=== PATIENT | female | born 1995 | race Caucasian/White ===

== ENCOUNTER → 2018-04-05 17:05 | Outpatient (CLI) | payer MEDICAID, SELFPAY ==
[2018-04-05 18:07] LABS: Glucose Challenge Gest 1H 50g 95 mg/dL (70-140)
== END ==
PROVIDERS: Visit Provider Obstetrics & Gynecology
DX: Z34.83 Encounter for supervision of other normal pregnancy, third trimester (principal)
CPT/HCPCS: 82950

== ENCOUNTER 2020-01-07 19:38 | Emergency (ER) | payer MEDICAID, SELFPAY ==
[2020-01-07 19:39] VITALS: BP 150/96; PULSE 101; RESP 16; TEMP 36.7; O2SAT 99; BMI 43.3
--- NOTE | 2020-01-07 19:57 | ED.DCSUM_ITS ---
- ER Visit Summary Date of Service: 01/07/20 Chief Complaint: Left upper and lower dental pain History of Present Illness: The patient is a 24 F history of anxiety and depression. Patient states she had an earache for the last 3 days. Has had dental pain for since yesterday. No trauma. No fever. No facial swelling. Physical Examination: Young female no acute distress vital signs stable afebrile. H EENT exam TMs normal bilaterally. No facial swelling. Able to open close her mouth any difficulty. No swelling of the lips or gums. Posterior pharynx normal. Dentition has multiple capped teeth. There is no obvious large cavities. Her left lower second molar is tender to palpation. There is no gingival swelling or abscess. There is no trismus. Floor of her mouth is soft and not swollen. Neck nontender. No lymphadenopathy. Lungs clear to auscultation bilaterally. Heart regular rhythm no murmur. Abdomen soft nontender. Otherwise exam unremarkable. Test Results: None Emergency Department Course and Treatment: Atraumatic dental pain. Patient given 2 [place] here for pain. She will use ibuprofen and Tylenol at home for pain. Treatment Plan: Janes Sánchez Follow-up with her dentist. Tylenol and Motrin for pain. Disposition: Discharge Impression: Left lower jaw dental pain This note was generated with [employer] dictation software. It may contain incorrect words, spelling, and punctuation that were not noted in review of the chart prior to signing ED Disposition - Plan for ED Patient: Referrals: Vj Robles MD [Primary Care Provider] -
--- NOTE | 2020-01-07 19:59 | DCINST.ED_ITS ---
ED Disposition - Plan for ED Patient: Disposition: Home or Assisted Living Instructions: ED Tooth Pain Prescriptions: Penicillin Vk [Pen-Vee K , V-Cillin K] 500 mg PO 4X/DAY #30 tab Prescription Printed Referrals: Kaela Felder [NON-STAFF] - As soon as possible Additional Instructions: Follow-up with any local dentist that you can get into or the [facility]. Pen-Vee K for possible dental infection. 4 times a day. Tylenol and Motrin for pain.
[2020-01-07] MEDS: HYDROcodone Bitartrate/Apap 5/325 Tablet PO (20:05)
[2020-01-07 20:15] VITALS: RESP 16
== END 2020-01-07 20:16 | disposition home or self-care (01) ==
LOC: ED 20:11
PROVIDERS: Emergency Provider Emergency Medicine; PCP Family Medicine
DX: K08.89 Other specified disorders of teeth and supporting structures (principal); F32.9 Major depressive disorder, single episode, unspecified; F41.9 Anxiety disorder, unspecified; Z72.0 Tobacco use
CPT/HCPCS: 99283

== ENCOUNTER 2020-06-07 12:13 | Emergency (ER) | payer MEDICAID, SELFPAY ==
[2020-06-07 12:14] VITALS: BP 120/79; PULSE 92; RESP 16; TEMP 36.7; O2SAT 98; BMI 43.7
--- NOTE | 2020-06-07 12:34 | ED.VIS.GEN ---
History of Present Illness Chief Complaint: Cough Informant: Patient Onset: Days Context: Gradual Onset Current Severity: Mild Maximum Severity: Moderate Narrative: Patient presents secondary to cough and congestion. She is a history of asthma and states her lungs feel tight and she feels short of breath. No known fever at home. She does complain of body aches with altered taste. She states multiple other family members are sick with the same. Her sister had been diagnosed with pneumonia but was negative for Covid. Patient states she is not been to her doctor in quite some time and does not have her inhalers. - Past Medical History (1) Asthma Status: Chronic (2) Bipolar 1 disorder Status: Chronic Past Medical History - Allergies and Home Meds Allergies/Adverse Reactions: Allergies No Known Allergies Allergy (Verified 06/07/20 12:14) Primary Care Physician: Vj Robles MD [Primary Care Provider] - Prior records reviewed: Yes Lives: With Family Smoking Status: Current every day smoker Review of Systems General: Denies: Fever Eyes: Denies: Visual changes - bilaterally ENT: Reports: - - Congestion Cardiovascular: Reports: Chest pain - Lungs feel tight Respiratory: Reports: Dyspnea, Cough Gastrointestinal: Denies: Abdominal pain, Vomiting Musculoskeletal: Reports: Myalgias Neurological: Denies: Weakness, Parasthesia Hematologic: Denies: Easy bruising, Easy bleeding Allergy: Denies: Uticaria Physical Exam Vital Signs/Narrative: Vital Signs Temp Pulse Resp BP Pulse Ox 06/07/20 12:14 98.1 F 92 16 120/79 98 Inital Vital Signs reviewed: Yes General: Well nourished, Well developed Head: Normocephalic ENT: Moist mucous membranes Cardiovascular: Regular rate, Regular rhythm Respiratory: No distress, Wheezing - Inspiratory and expiratory wheezes throughout Abdomen: Soft, Nontender Extremities: Nontender Skin: Normal color Neurological: Alert, Oriented x3 Psychological: Normal affect Diagnostic/Tx/Re-eval Impressions Chest X-Ray 06/07/20 13:05 IMPRESSION: Normal x-ray examination of the chest. Electronically Signed: Heron Currie, at 13:28 EDT , Service support , 06/07/20 13:05 Chest 1 View (Portable) [RAD] Stat - Medical Decision Making Patient was given p.o. prednisone here along with a DuoNeb treatment and albuterol MDI. On repeat evaluation she has significantly improved air movement with no wheezing noted. She subjectively feels improved. I believe she does have a viral URI that exacerbated her asthma. I do not think antibiotics are warranted. She did have a Covid test that will be a send out. Results of this should be available in 4 to 5 days. ED Disposition - Plan for ED Patient: Disposition: Home or Assisted Living Diagnosis: Viral URI, Asthma exacerbation Instructions: ED VIRAL URI w/ Wheezing Adult Prescriptions: Prednisone [Deltasone] 40 mg PO DAILY #10 tab Transmission Status: [facility] to [facility] [place] Referrals: Vj Robles MD [Primary Care Provider] - 3-5 Days if not improving
[2020-06-07 12:36] VITALS: O2SAT 98
[2020-06-07] MEDS: predniSONE 20 MG Tablet 60 MG PO (13:01)
--- NOTE | 2020-06-07 13:05 | RAD_ITS ---
STUDY: X-RAY CHEST REASON FOR EXAM: Female, 24 years old. COUGH, SINUS CONGESTION, AND SOB WITH EXERTION TECHNIQUE: Single AP portable view of the chest. COMPARISON: Comparison is made with prior study dated 12/28/2013. FINDINGS: The lungs are clear and expanded. There is no demonstrated pleural abnormality. Normal size heart. Normal mediastinum and simone. Normal visualized pulmonary arteries. Normal visualized aortic arch and descending thoracic aorta. Normal visualized thoracic spine. Normal visualized ribs, clavicles, and shoulders. There is no demonstrated abnormality of the visualized soft tissue structures of the upper abdomen. RAD/Chest 1 View (Portable) IMPRESSION: Normal x-ray examination of the chest. Electronically Signed: Heron Currie, at 13:28 EDT , Service support ,
[2020-06-07] MEDS: Ipratropium/Albuterol Sulfate 3 ML AMPUL.NEB INHALATION (13:16)
[2020-06-07 13:20] VITALS: PULSE 79; RESP 20; O2SAT 97
[2020-06-07 14:07] VITALS: BP 124/77; PULSE 62; RESP 15; O2SAT 99
== END 2020-06-07 14:10 | disposition home or self-care (01) ==
PROVIDERS: Emergency Provider Emergency Medicine; PCP Family Medicine
DX: J06.9 Acute upper respiratory infection, unspecified (principal); J45.901 Unspecified asthma with (acute) exacerbation; F31.9 Bipolar disorder, unspecified; F17.200 Nicotine dependence, unspecified, uncomplicated
CPT/HCPCS: 71045; 87635; 94640; 99283; U0003

== ENCOUNTER 2021-03-07 18:47 | Emergency (ER) | payer MEDICAID, SELFPAY ==
[2021-03-07 18:47] VITALS: BP 141/67; PULSE 86; RESP 15; TEMP 36.6; O2SAT 96; BMI 43.7
[2021-03-07 19:21] LABS: Bacteria 0 SEEN /hpf (None Seen); Mucous, Urine 0 SEEN /hpf (<or=2+)
[2021-03-07 19:28] LABS: Color, Urine Yellow (Yellow); Glucose, Dipstick Normal (Normal); Ketone-Dipstick Negative (Negative); Leukocyte Esterase-Dipstick 25 /ul (Negative); Nitrite-Dipstick Negative (Negative); Occult Blood-Urine 10 /ul (Negative); Protein-Dipstick 15 mg/dl (Negative); Specific Gravity, Urine 1.025 (1.002-1.030); Urine Bilirubin Dipstick Negative (Negative); Urine Clarity Sl. Cloudy (Clear); Urine Urobilinogen Normal (Normal)
[2021-03-07 19:35] LABS: Amorphous Sediment 1+ URATE; Red Blood Cells-Urine 0-5 SEEN /hpf (0-5); Squamous Epithelial Cells - UA 0-5 SEEN /hpf (5-10); White Blood Cells 0-5 SEEN /hpf (0-5)
--- NOTE | 2021-03-07 19:37 | EX.ED.DYSGE1 ---
HPI History of Present Illness Chief Complaint: Complaint Narrative Narrative: 25-year-old female presenting with left lower quadrant left flank pain. She states this started about 4 days ago. She noted that she had hematuria yesterday when she was seen by her gynecology. She has not seen chloe hematuria. She does describe dysuria. Patient has no history of kidney stones. 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 There was an ultrasound ordered but they did not want her to go get it for a few more days. Patient is not had any fever. She has no nausea. She complains of sharp pain radiating to the left inguinal area. Denies vaginal complaints. PFSH PFS Medical History Anxiety Asthma Home Medications bupropion HCl 150 mg PO DAILY 01/07/20 [History Last Taken Unknown] buspirone 10 mg PO TID 01/07/20 [History Last Taken Unknown] albuterol sulfate 1 - 2 puff INHALATION Q4H PRN PRN 06/07/20 [History Last Taken Unknown] Allergy/AdvReac Type Severity Reaction Status Date / Time No Known Allergies Allergy Verified 03/07/21 18:49 Family History Aunt Diabetes Grandmother CVA (cerebral vascular accident) Cancer Hypertension Thyroid disorder Grandfather Diabetes CVA (cerebral vascular accident) Mother Hypertension Depression Bipolar 1 disorder Sister Hypertension Asthma Depression Bipolar 1 disorder Thyroid disorder Surgical History History of tonsillectomy and adenoidectomy Status post colposcopy (~02/16/18) Social History Smoking Status: Current every day smoker tobacco type: cigarettes alcohol intake: never substance use type: does not use caffeine: No what type of physical activity do you participate in: none seatbelt use: sometimes do you feel safe at home: Yes additional social history: Single-Patient is unemployed ROS ROS ED Constitutional Constitutional ED: Denies fever(s) or subjective Eyes Eyes: Denies blurry vision or change in vision ENT ENT ED: Denies ear pain, rhinorrhea or sore throat Cardiovascular Cardiovascular: Denies chest pain, palpitations or racing heartbeat Respiratory/Chest Respiratory/Chest: Denies cough, dyspnea or sputum Gastrointestinal Gastrointestinal: Reports abdominal pain; Denies constipation or diarrhea Genitourinary Genitourinary ED: Reports dysuria and hematuria Musculoskeletal Musculoskeletal: Denies arthralgias or myalgias Integumentary Denies abscess or rash Neurologic Neurologic: Denies headache(s), paresthesias or weakness EXAM Physical Exam Const Vital Signs: 03/07/21 18:47 03/07/21 21:43 Temperature 97.8 F Temperature Source Temporal Pulse Rate 86 80 Respiratory Rate 15 16 Blood Pressure 141/67 H 130/78 H Blood Pressure Mean 91 Pulse Ox 96 97 Oxygen Delivery Method Room Air Positive well nourished General Appearance ED: NAD HEENT Reports moist mucous membranes Negative for trauma Eyes PERRL and EOMs intact bilaterally Chest Wall inspection of chest normal and palpation of chest normal Resp normal respiratory effort and clear to auscultation bilaterally Cardio regular rate and regular rhythm GI GI Narrative: Tenderness to palpation mild in the left lower quadrant. Abdomen is nonperitoneal. Back/Spine Negative for no CVA tenderness Neuro oriented x3 and CN's II-XII intact bilaterally Sensorium / Orientation: alert Psych mental status grossly normal Skin no rashes or lesions noted and no wounds MDM MDM MDM Narrative Medical decision making narrative: Patient presented with lower abdominal pain. Her vital signs are stable and she is afebrile. I obtained a urinalysis and a renal function which are normal. Urine test is normal. CT of the abdomen pelvis performed without contrast shows no acute intra-abdominal process. Patient counseled on findings. She was more comfortable after receiving morphine and Zofran. 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 She is discharged home in stable condition. Impression: #1 abdominal pain Lab Data Attestation: I reviewed the patient's lab results. Labs: Laboratory Results - last 24 hr 03/07/21 03/07/21 03/07/21 19:17 19:17 19:48 Sodium 138 Potassium 3.9 Chloride 105 Carbon Dioxide 29.0 Anion Gap 4 L BUN 9 Creatinine 0.86 Estim Creat Clear Calc 83.44 Est GFR (MDRD) Af Amer 105 Est GFR (MDRD) Non-Af 86 BUN/Creatinine Ratio 10.5 Glucose 116 H Calcium 9.3 Urine Color Yellow Urine Clarity Sl. Cloudy Urine pH 6.0 Ur Specific [place] 1.025 Urine Protein 15 H Urine Glucose (UA) Normal Urine Ketones Negative Urine Occult Blood 10 H Urine Nitrite Negative Urine Bilirubin Negative Urine Urobilinogen Normal Ur Leukocyte Esterase 25 H Urine RBC 0-5 SEEN Urine WBC 0-5 SEEN Ur Squamous Epith Cells 0-5 SEEN Amorphous Sediment 1+ URATE Urine Bacteria 0 SEEN Urine Mucus 0 SEEN Urine Test Negative Radiography Diagnostic Testing: Radiology Impression Abdomen/Pelvis CT 03/07/21 20:19 IMPRESSION: No acute intra-abdominal process identified. Electronically Signed: Octavio Caldwell MD at 20:42 EDT Tel , Service support , Discharge Plan Triage Chief Complaint: Complaint ED Provider: Tom Gallego Dx/Rx/DC Orders Instructions: ED Abdominal Pain Unkn Cause Fem Prescriptions: No Action buspirone 5 MG tablet 10 mg PO TID RF: 0 bupropion HCl 150 MG tablet extended release 24 hr 150 mg PO DAILY RF: 0 albuterol sulfate 1 PUFF inhaler 1 - 2 puff inhalation Q4H PRN PRN (Reason: Sob &/Or Wheezing) RF: 0 Primary Care Provider: Vj Robles Referrals: Vj Robles MD [Primary Care Provider] - Disposition Disposition: Home, Self Care Discharge Date/Time: 03/07/21 21:35
[2021-03-07] MEDS: Morphine 4 MG/ML Syringe IV (19:46)
[2021-03-07] MEDS: Ondansetron 4 MG/2 ML Vial IV (19:46)
[2021-03-07 20:00] LABS: Internal QC Validated? YES +Cl - CLEAR BKGD; Pregnancy, Urine Negative Negative
[2021-03-07 20:11] LABS: Anion Gap 4 (5-15); BUN 9 mg/dL (7-18); BUN/Creat Ratio 10.5 RATIO (10-20); Calcium,Total 9.3 mg/dL (8.5-10.1); Chloride 105 mmol/L (98-107); Creatinine, Serum 0.86 mg/dL (0.55-1.02); EST Glomerular Filtration Rate 86 mL/min (>60); Est Glom Filt Rate - Afr Amer 105 mL/min (>60); Estimated Creatinine Clearance 83.44 ml/min; Glucose 116 mg/dL (74-106); Potassium 3.9 mmol/L (3.5-5.1); Sodium Level 138 mmol/L (136-145)
--- NOTE | 2021-03-07 20:19 | CT_ITS ---
STUDY: CT ABDOMEN AND PELVIS WITHOUT CONTRAST REASON FOR EXAM: Female, 25 years old. Abdominal pain RADIATION DOSAGE (If Supplied By Facility): CTDIvol = ( 23.28 ) mGy, DLP = ( 1244.44 ) mGycm TECHNIQUE: Transaxial images were obtained from the dome of the diaphragm to the symphysis pubis without oral contrast, and without intravenous contrast. Sagittal and coronal images were reconstructed. Individualized dose optimization techniques were used for this CT. COMPARISON: None. FINDINGS: The visualized lung bases are unremarkable. The visualized portions of the heart are within normal limits. Normal liver. Normal gallbladder and extrahepatic biliary system. Normal spleen. Normal pancreas. Normal bilateral adrenal glands. Normal right kidney. Normal left kidney. Normal visualized stomach. Normal small intestine. Normal colon. The appendix is visualized and appears normal. Normal abdominal aorta. Normal inferior vena cava. Normal retroperitoneum. Normal urinary bladder. Normal visualized uterus. There is a small umbilical hernia containing fat. Sclerosis at the bilateral sacroiliac joints is nonspecific. CT/Abdomen/Pelvis without Cont IMPRESSION: No acute intra-abdominal process identified. Electronically Signed: Octavio Caldwell MD at 20:42 EDT Tel , Service support ,
[2021-03-07 21:43] VITALS: BP 130/78; PULSE 80; RESP 16; O2SAT 97
== END 2021-03-07 21:35 | disposition home or self-care (01) ==
PROVIDERS: Emergency Provider Student in an Organized Health Care Education/Training Program; PCP Family Medicine
DX: R10.32 Left lower quadrant pain (principal); R30.0 Dysuria; R31.9 Hematuria, unspecified; F17.210 Nicotine dependence, cigarettes, uncomplicated; J45.909 Unspecified asthma, uncomplicated; F41.9 Anxiety disorder, unspecified; Z79.899 Other long term (current) drug therapy
CPT/HCPCS: 74176; 80048; 81001; 81025; 96374; 96375; 99283; A4216; J2405

== ENCOUNTER 2021-05-27 13:03 | Emergency (ER) | payer MEDICAID, SELFPAY ==
[2021-05-27 13:05] VITALS: BP 118/88; PULSE 102; RESP 18; TEMP 36.7; O2SAT 97; BMI 43.7
[2021-05-27 14:44] LABS: Absolute Lymphocyte Count 2.95 X10^3/uL (0.83-4.51); Basophil# 0.04 X10^3/uL; Basophil% 0.5 % (0-1); Eosinophil# 0.16 X10^3/uL; Eosinophils% 1.8 % (0-5); Hematocrit 45.6 % (37-47); Hemoglobin 15.5 g/dL (12.0-15.0); Lymphocyte # 2.95 X10^3/ul (0.83-4.51); Lymphocyte % 33.8 % (19-41); Monocyte# 0.54 X10^3/uL; Monocyte% 6.2 % (0-10); NRBC Flagged by Analyzer 0 % (0-5); Neutrophil # 5.02 X10^3/uL (2.7-7.7); Neutrophil % 57.4 % (47-70); Platelet Count 340 K/mm3 (150-450); RBC Distribution Width CV 12.5 % (11.6-14.6); RBC Distribution Width SD 43.1 fl (35.1-43.9); Red Blood Count 4.85 M/mm3 (4.2-5.4); White Blood Count 8.7 K/mm3 (4.4-11.0)
[2021-05-27 14:54] LABS: Anion Gap 4 (5-15); BUN 10 mg/dL (7-18); BUN/Creat Ratio 13.9 RATIO (10-20); Calcium,Total 9.8 mg/dL (8.5-10.1); Chloride 106 mmol/L (98-107); Creatinine, Serum 0.72 mg/dL (0.55-1.02); EST Glomerular Filtration Rate 105 mL/min (>60); Est Glom Filt Rate - Afr Amer 128 mL/min (>60); Estimated Creatinine Clearance 99.67 ml/min; Glucose 101 mg/dL (74-106); Potassium 3.8 mmol/L (3.5-5.1); Sodium Level 140 mmol/L (136-145)
--- NOTE | 2021-05-27 15:39 | US_ITS ---
STUDY: ULTRASOUND TRANSVAGINAL CLINICAL: Female, 25 years old. bleeding, pelvic pain TECHNIQUE: Transvaginal COMPARISON: 10/21/2013 FINDINGS: Normal uterine size measuring 8.0 x 4.5 x 3.9 cm in maximal craniocaudal dimension. There are no myometrial masses. Normal endometrial thickness measuring 4 mm. There is a 4 mm isoechoic area within the endometrium in the body the uterus which may represent a mass. Correlation with hysteroscopy may be useful.. Normal uterine cervix. Normal right ovary, measuring 2.8 x 2.5 x 2.5 cm. There are multiple follicles without a dominant cyst. Normal left ovary, measuring 2.2 x 1.2 x 1.9 cm. There are multiple follicles without a dominant cyst. There is no free fluid in the pelvis. Polycystic ovary disease: No. US/Transvaginal Non- IMPRESSION: Suspect 4 mm endometrial mass in the body of the uterus and correlation with hysteroscopy would be useful. Electronically Signed: Fidencio James MD at 17:35 EDT Tel , Service support ,
--- NOTE | 2021-05-27 15:42 | EDS_ITS ---
HPI HPI - Female History of Present Illness Chief Complaint: Vag Bleeding Informant: patient Narrative Narrative: 25-year-old female presenting with vaginal bleeding. Patient states she had her Mirena removed 4 days ago and has had bleeding since that time. She was concerned today because she developed blood clots. She has had no syncope. She complains of mild abdominal cramping. Denies other complaints. Recent Illness/Hospitalization: No PFSH PFSH Medical History Anxiety Asthma Home Medications bupropion HCl [Wellbutrin XL] 150 mg PO DAILY 01/07/20 [History Last Taken Unknown] Allergy/AdvReac Type Severity Reaction Status Date / Time No Known Allergies Allergy Verified 05/27/21 13:08 Family History Aunt Diabetes Grandmother CVA (cerebral vascular accident) Cancer Hypertension Thyroid disorder Grandfather Diabetes CVA (cerebral vascular accident) Mother Hypertension Depression Bipolar 1 disorder Sister Hypertension Asthma Depression Bipolar 1 disorder Thyroid disorder Surgical History History of tonsillectomy and adenoidectomy Status post colposcopy (~02/16/18) Social History Smoking Status: Current every day smoker tobacco type: cigarettes alcohol intake: never substance use type: does not use caffeine: No what type of physical activity do you participate in: none seatbelt use: sometimes do you feel safe at home: Yes additional social history: Single-Patient is unemployed [facility] ED Constitutional Constitutional ED: Denies fever(s) Eyes Eyes: Denies change in vision ENT ENT ED: Denies rhinorrhea or sore throat Cardiovascular Cardiovascular: Denies chest pain or palpitations Respiratory/Chest Respiratory/Chest: Denies cough or dyspnea Gastrointestinal Gastrointestinal: Reports abdominal pain; Denies diarrhea, nausea or vomiting Genitourinary Genitourinary ED: Denies dysuria Musculoskeletal Musculoskeletal: Denies myalgias Integumentary Denies rash Neurologic Neurologic: Denies headache(s) Psychiatric Psychiatric: Denies suicidal thoughts EXAM Physical Exam Const Vital Signs: 05/27/21 13:05 05/27/21 17:43 Temperature 98.0 F Temperature Source Temporal Pulse Rate 102 H 69 Pulse Rate [Lying] 69 Pulse Rate [Sitting] 76 Pulse Rate [Standing] 83 Respiratory Rate 18 14 Blood Pressure 118/88 H 121/62 H Blood Pressure [Lying] 121/62 H Blood Pressure [Sitting] 118/65 Blood Pressure [Standing] 135/80 H Blood Pressure Mean 98 81 Blood Pressure Mean [Lying] 81 Blood Pressure Mean [Sitting] 82 Blood Pressure Mean [Standing] 98 Pulse Ox 97 99 Oxygen Delivery Method Room Air Room Air Positive well nourished and well developed General Appearance ED: well developed HEENT Reports normocephalic and head/scalp atraumatic Eyes PERRL and EOMs intact bilaterally Neck supple General: Negative for tenderness Chest Wall inspection of chest normal Resp normal respiratory effort and clear to auscultation bilaterally Cardio regular rate and regular rhythm GI soft to palpation, non-tender and non-distended Palpation: soft; Negative for tender, guarding or rebound tenderness present no CVA tenderness Speculum Exam - Vagina: vaginal bleeding small/minimal Speculum Exam - Cervix: cervical os closed Bimanual Exam - Vag & Uterus: normal bimanual exam Extremity normal to inspection Neuro oriented x3 Sensorium / Orientation: alert Psych mental status grossly normal MDM MDM MDM Narrative Medical decision making narrative: Patient was given IV fluids. CBC is normal with hemoglobin of 15.5. Chemistries unremarkable. is negative. Orthostatics negative. Pelvic ultrasound was obtained and shows suspect 4 mm endometrial mass in the body of the uterus and correlation with hysteroscopy would be useful. Findings were discussed with the patient. She has an appointment with Dr. Pate tomorrow. She is comfortable with discharge home and follow-up tomorrow. Advised return to the ED for worsening complaints. Lab Data Attestation: I reviewed the patient's lab results. Labs: Laboratory Results - last 24 hr 05/27/21 05/27/21 05/27/21 13:25 13:25 15:45 WBC 8.7 RBC 4.85 Hgb 15.5 H Hct 45.6 MCV 94.0 MCH 32.0 MCHC 34.0 RDW Std Deviation 43.1 RDW Coeff of Shaggy 12.5 Plt Count 340 MPV 10.0 Immature Gran % (Auto) 0.300 Neut % (Auto) 57.4 Lymph % (Auto) 33.8 [place] % (Auto) 6.2 Eos % (Auto) 1.8 Baso % (Auto) 0.5 Absolute Neuts (auto) 5.0 Absolute Lymphs (auto) 2.95 Nucleated RBC % 0 Sodium 140 Potassium 3.8 Chloride 106 Carbon Dioxide 30.0 Anion Gap 4 L BUN 10 Creatinine 0.72 Estim Creat Clear Calc 99.67 Est GFR (MDRD) Af Amer 128 Est GFR (MDRD) Non-Af 105 BUN/Creatinine Ratio 13.9 Glucose 101 Calcium 9.8 Serum , Qual NEGATIVE Radiography Diagnostic Testing: Radiology Impression Transvaginal US 05/27/21 15:39 IMPRESSION: Suspect 4 mm endometrial mass in the body of the uterus and correlation with hysteroscopy would be useful. Electronically Signed: Fidencio James MD at 17:35 EDT Tel , Service support , Discharge Plan Triage Chief Complaint: Vag Bleeding ED Provider: Penny Kelly Dx/Rx/DC Orders Clinical Impression: Dysfunctional uterine bleeding Instructions: ED Dysfunctional Uterine Bleeding Prescriptions: No Action bupropion HCl [Wellbutrin XL] 150 MG tablet extended release 24 hr 150 mg PO DAILY RF: 0 Primary Care Provider: Vj Robles Referrals: Guillermina Pate MD [STAFF PHYSICIAN] - Vj Robles MD [Primary Care Provider] - Disposition Disposition: Home, Self Care
[2021-05-27] MEDS: 0.9% Normal Saline 1,000 ML 1000 ML IV (15:46)
[2021-05-27 16:31] LABS: Internal QC Validated? YES +Cl - CLEAR BKGD; Pregnancy, Serum, hCG Quali. NEGATIVE Negative
[2021-05-27 17:43] VITALS: BP 118/65; BP 121/62; BP 135/80; PULSE 69; PULSE 76; PULSE 83; RESP 14; O2SAT 99
[2021-05-27 18:02] VITALS: BP 125/74; PULSE 60; RESP 15; O2SAT 98
== END 2021-05-27 18:02 | disposition home or self-care (01) ==
PROVIDERS: Emergency Provider Emergency Medicine; PCP Family Medicine
DX: N93.8 Other specified abnormal uterine and vaginal bleeding (principal); F17.210 Nicotine dependence, cigarettes, uncomplicated
CPT/HCPCS: 76830; 80048; 84703; 85025; 93976; 96360; 99283; J7030; A4216

== ENCOUNTER 2021-07-11 05:23 | Day surgery (SDC) | payer MEDICAID, SELFPAY ==
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
[2021-07-10 10:55] LABS: Hemoglobin 15.4 g/dL (12.0-15.0); Mean Corp Hgb Conc 34.2 g/dL (32-36); Mean Corpuscular Hgb 31.6 pg (27.0-32.0); Mean Corpuscular Volume 92.4 fL (81-99); Platelet Count 325 K/mm3 (150-450); RBC Distribution Width CV 12.5 % (11.6-14.6); RBC Distribution Width SD 42.7 fl (35.1-43.9); Red Blood Count 4.87 M/mm3 (4.2-5.4); White Blood Count 6.6 K/mm3 (4.4-11.0)
[2021-07-11] VITALS (10 sets, daily range): BP systolic 125–144; BP diastolic 66–90; PULSE 54–97; RESP 16–18; TEMP 36.1–36.6; O2SAT 93–100; BMI 43.2
[2021-07-11] MEDS: Lactated Ringers 1,000 ML 40 ML IV (06:42)
[2021-07-11] MEDS: Phenazopyridine 95 MG Tablet 190 MG PO (06:43)
[2021-07-11] MEDS: Acetaminophen 500 MG Tablet 1000 MG PO ×2 (06:44→12:00)
[2021-07-11] MEDS: Gabapentin 600 MG Tablet PO (06:44)
[2021-07-11 06:45] LABS: Bedside Glucose 72 mg/dL (70-110)
[2021-07-11] MEDS: Scopolamine 1mg/72hr Patch 1 PATCH TD (06:45)
[2021-07-11] MEDS: Enoxaparin 40 MG/0.4 ML Syringe SC (06:45)
[2021-07-11 06:46] LABS: Internal QC Validated? YES +Cl - CLEAR BKGD; Pregnancy, Urine Negative Negative
[2021-07-11] MEDS: Celecoxib 200 MG Capsule 400 MG PO (06:50)
[2021-07-11] MEDS: Cefazolin 2 GM in 0.9% Normal Saline 100 ML IV (07:28)
--- NOTE | 2021-07-11 07:30 | HYST_PTH ---
PATIENT: DANIEL STOUT [place] [facility] [place][id number] AGE/SX: 25/F ROOM: RE07/11/[address]: Dr. Guillermina Pate MD : [id number] BED: DIS: 07/11/2021 SPEC #: [id number] RECD: 07/11/21 10:07 STATUS: NADEGE REJessica #: [id number] DIANA: 07/11/21 07:[address]: Guillermina Pate DEPT: SURGICAL PATHOLOGY RECD BY: Judy Hernandez ENTERED: 07/11/21 11:14 SP TYPE: HYSTERECT OTHR DR: Dr. Vj Robles MD Tissues: Uterus, NOS Procedures: Surgery Specimen Level V HEADER OPERATION: Hysterectomy, LAVH, salpingectomy PRE-OP DIAGNOSIS: Adenomyosis, chronic pelvic pain, intramural uterine fibroid, menorrhagia TISSUE SUBMITTED: Uterus, bilateral fallopian tubes MICROSCOPIC DIAGNOSIS Uterus, hysterectomy: Cervix ? squamous metaplasia and mild chronic inflammation. Endometrium ? proliferative endometrium with recent stromal hemorrhage. Myometrium ? no pathologic change. Right and left fallopian tubes ? benign paratubal cysts. AM:lorne 07/12/2021 MICROSCOPIC DESCRIPTION Slides are reviewed. GROSS DESCRIPTION Received in fixative is one container labeled with the patient's name and designated uterus, bilateral fallopian tubes. The specimen consists of a hysterectomy specimen consisting of uterus with cervix and detached bilateral fallopian tubes. The uterus with cervix weighs 53 gm and measures 8 x 5 x 3.5 cm. The serosal surface is qiu, glistening. The ectocervical mucosa is unremarkable. The external os is oval in contour. The endocervical canal measures 2.5 cm in length and the endocervical mucosa is qiu, glistening and unremarkable. The triangular endometrial cavity measures 3.5 cm in length and 2 cm in width. The endometrium is qiu, glistening without any mass lesion and measures 0.1 cm in thickness. Sections of the uterine wall do not reveal any mass lesion and measures up to 2 cm in thickness. The fallopian tubes are not identified as right or left and measures 6 cm in length and 0.5 cm in diameter and 5 cm in length and 0.5 cm in diameter. The fimbrial end is identified. Section of one fallopian tube reveals a paratubal cyst filled with clear fluid measuring 1 cm in greatest dimension. Sections reveal unremarkable cut surfaces. The fimbrial end is identified. The second fallopian tube is similar appearance to first one and also shows a paratubal cyst measuring 1 cm in greatest dimension filled with clear fluid. Hydrator sections are submitted in eight cassettes as follows: 1 - anterior cervix, 2??posterior cervix, 3 & 4 - anterior uterine wall, 5 & 6 - posterior uterine wall, 7 - one fallopian tube and paratubal cyst, 8 - second fallopian tube and paratubal cyst. / SJ:lorne 07/11/21 TC:5 CPT: 71157
[2021-07-11] MEDS: dexAMETHasone 10 MG/ML Vial 8 MG IV (07:52)
[2021-07-11] MEDS: Lidocaine 1% /Epi 1:100 (20ml) 20 ML Vial (09:00)
[2021-07-11] MEDS: Bupivacaine Mpf 0.5% 30 ML VIAL (09:00)
[2021-07-11] MEDS: Ondansetron 4 MG/2 ML Vial IV (09:07)
--- NOTE | 2021-07-11 09:08 | OP.PCM_ITS ---
Problems Associated Problem List Diagnoses (1) Menorrhagia: (2) Intramural uterine fibroid: (3) Chronic pelvic pain in female: Report of Operation Date of Procedure: 07/11/21 Pre-Operative Diagnosis: Menorrhagia, intramural uterine fibroid, chronic pelvic pain Post-Operative Diagnosis: same Surgery/Procedure Performed:: LAVH, bilateral salpingectomy Surgeon: Guillermina Pate brush stainer: Venus Alonso brush stainer: Mira Langley Type of Anesthesia: General Anesthesiologist: Misti Flores Special Medications: none Specimen's removed: uterus, cervix, bilateral fallopian tumes Drains: none Estimated Blood Loss (mL): 30 Fluids Replaced: 800 Description of Procedure: In The patient was taken to the operating room where she was prepped and draped in the dorsal lithotomy position. Her arms were tucked to the side and padded and her legs were placed in the yellowfin stirrups. Care was taken to ensure that she was placed in a neurologically safe and neutral position. A weighted speculum was placed in the vagina and the anterior lip of the cervix was grasped with a single-tooth tenaculum. The uterus sounded to 8 centimeters. The ZUMI uterine manipulator was placed and secured. The Hines catheter was placed to straight drain. Attention was turned to the abdominal portion of the case. Before skin incisions were made they were infiltrated with 0.5% Marcaine solution for local anesthetic. A 5 mm intraumbilical incision was made and while tenting the anterior abdominal wall up with towel clamps a 5 mm blade less trocar and sleeve were advanced directly into the peritoneal cavity. Peritoneal placement was confirmed with the laparoscope the pneumoperitoneum was created, and the underlying abdominal contents were intact. The patient was placed in Trendelenburg and the above findings were noted. Right and left lateral 5 mm trochars were placed under direct visualization without difficulty. There were some filmy adhesions of the omentum to the anterior abdominal wall in the left lower quadrant, left lateral abdomen lateral to the umbilicus, and right lower quadrant. These were taken down with the LigaSure device without difficulty. The antimesenteric portion of the tube was clamped sealed and transected serially on both sides with the LigaSure device. The CLARY scrubbed out at this time and Dr. Alonso scrubbed in. The round ligaments were clamped sealed and transected and a window was made in the peritoneum. The utero-ovarian ligaments were then clamped, sealed and transected with the LigaSure device and the pedicles were hemostatic The bladder flap was dissected down with the LigaSure device and blunt dissection and the uterine arteries were then skeletonized. The uterine arteries were clamped, sealed and transected on both sides with the LigaSure device. At this point the pedicles were all examined and found to be hemostatic. Attention was turned to the vaginal portion of the case. 1% lidocaine with dilute epinephrine solution was used to infiltrate the anterior vaginal epithelium over the cervix. An incision was made from 3 to 9:00 across the anterior vaginal epithelium and the vaginal epithelium was dissected back with blunt sharp dissection. The anterior colpotomy incision was made. The vaginal epithelium on each side of the cervix at 3 and 9:00 was clamped, transected and suture ligated. The next pedicle contained the anterior peritoneum and part of the cardinal ligament. The pedicle was was clamped with a Fam clamp, transected and suture-ligated. Hemostasis was noted. The uterine fundus was brought through the anterior colpotomy incision. The uterosacral ligaments and vaginal cuff were secured with Fam clamps. The pedicles were transected. The uterus and cervix were then amputated and removed. The pedicles were secured with an 0 Vicryl suture. At this point, the pedicles were all examined and hemostasis was assured. A [id number] was needed in the midline and the vaginal cuff between the uterosacrals to tack the peritoneum down to the posterior vaginal wall. The vaginal cuff was then closed in a horizontal fashion with interrupted 0 Vicryl [id number] sutures. Care was taken to secure the vagina to the uterosacral ligaments. The Hines catheter was removed and a cystoscopy was performed. The bladder appeared normal and was intact. Both ureteral orifices were noted and both ureteral jets were seen. The cystoscope was removed and the Hines catheter was placed back to straight drain. A sponge stick was placed in the vagina to help place traction against the vaginal cuff. The laparoscope was reinserted into the abdomen and the pneumoperitoneum was re- created. The pedicles were reexamined and found to be hemostatic. The vaginal cuff was hemostatic. Fausto was placed over the peritoneal edges and no active bleeding was noted through the Fautso. The right and left lateral ports were taken out and the sites were hemostatic. The pneumoperitoneum was released and even under low pressure there was no bleeding of any of the pedicles are vaginal cuff. The umbilical port was removed. The umbilical skin incisions were closed with Monocryl suture and skin glue by Dr. Alonso. The vaginal instruments were removed by me and a vaginal sweep was completed by me. The assistance provided camera guidance, tissue manipulation and closure of the abdominal incisions. The surgery was performed by me with assistance other than the portions dictated as above. There were no qualified residents available for this procedure. All sponge lap and needle counts were correct and the patient was transferred to the recovery room in stable condition. Grafts/Implants Used: none Procedure Start Time: 07:56 Procedure Stop Time: 09:10 Complications none Admit VTE Documentation VTE Present on Admission: No VTE Mechan Device Prophylaxis: SCD's VTE Pharm Prophylaxis ordered?: No Reason prophylaxis not ordered:: Procedure Not Indicated
--- NOTE | 2021-07-11 09:38 | PCM.DC ---
Discharge Instructions Activity May resume sexual activity in: 6-8 weeks and - (Nothing in your vagina for 6 weeks. No vaginal or anal intercourse for 6-8 weeks) Dressing / Incision Cleanse incision/area with: Soap & Water and - (Your incisions have skin glue, it can get wet, leave the glue on until it falls off. ) Follow Up Care Please Follow Up With: Guillermina Pate MD When: With my office in 1-2 and 6 weeks or as needed. [phone] Test Results: Test results from this visit will be discussed in further detail at your follow-up appointment, if applicable. Discharge Plan Admission Primary Reason for Your Visit: hysterectomy Attending Provider: Guillermina Pate Primary Care Provider: Vj Robles Instructions Patient Instructions: Recovering from Hysterectomy Discharge Orders/Prescriptions Prescriptions: New acetaminophen [Acetaminophen Extra Strength] 500 mg tablet 1,000 mg PO Q6H PRN (Reason: fever or pain) 20 Days Qty: 60 RF: 1 docusate sodium [DOK] 100 MG capsule 100 mg PO BID PRN PRN (Reason: constipation) 20 Days Qty: 60 RF: 1 ibuprofen [ibuprofen] 600 MG tablet 600 mg PO Q6H PRN (Reason: Pain) Qty: 60 RF: 1 oxycodone 5 MG tablet 5 mg PO Q6H PRN PRN (Reason: severe pain) 7 Days Qty: 20 RF: 0 Continued bupropion HCl [Wellbutrin XL] 150 MG tablet extended release 24 hr 150 mg PO DAILY RF: 0 trazodone 50 mg tablet 50 mg PO QHS RF: 0 albuterol sulfate 90 mcg/actuation HFA aerosol inhaler 1 - 2 puff INHALATION PRN PRN (Reason: ASTHMA) RF: 0 Referrals / Follow Up: Vj Robles MD [Primary Care Provider] - Disposition Disposition (needs filled in before D/C Order can be placed): Home, Self Care
[2021-07-11] MEDS: Lactated Ringers 1,000 ML 70 ML IV (09:41)
[2021-07-11] MEDS: Ketorolac 30 MG/ML Syringe IV (12:00)
[2021-07-11 12:35] LABS: Hemoglobin 14.8 g/dL (12.0-15.0); Mean Corp Hgb Conc 33.6 g/dL (32-36); Mean Corpuscular Hgb 31.4 pg (27.0-32.0); Mean Corpuscular Volume 93.2 fL (81-99); Mean Platelet Vol. 9.4 fl (6.2-12.0); Platelet Count 324 K/mm3 (150-450); RBC Distribution Width CV 12.5 % (11.6-14.6); RBC Distribution Width SD 43.1 fl (35.1-43.9); Red Blood Count 4.72 M/mm3 (4.2-5.4); White Blood Count 17.2 K/mm3 (4.4-11.0)
== END 2021-07-11 13:12 | disposition home or self-care (01) ==
LOC: SDC 05:23 → AC 05:24
PROVIDERS: Anesthesiology; PCP Family Medicine; Referring Provider Obstetrics & Gynecology; Visit Provider Obstetrics & Gynecology
PROC: 0UT9FZZ Resection of Uterus, Via Natural or Artificial Opening With Percutaneous Endoscopic Assistance (ICD-10-PCS; CPT 58552; principal; 2021-07-11 07:05)
DX: N92.0 Excessive and frequent menstruation with regular cycle (principal); N80.0 Endometriosis of uterus; N87.0 Mild cervical dysplasia; N83.8 Other noninflammatory disorders of ovary, fallopian tube and broad ligament; D25.1 Intramural leiomyoma of uterus; G89.29 Other chronic pain; F31.9 Bipolar disorder, unspecified; F41.0 Panic disorder [episodic paroxysmal anxiety]; F17.200 Nicotine dependence, unspecified, uncomplicated; E66.01 Morbid (severe) obesity due to excess calories; Z68.41 Body mass index [BMI] 40.0-44.9, adult; Z20.822 Contact with and (suspected) exposure to COVID-19; Z79.899 Other long term (current) drug therapy
CPT/HCPCS: 58552; 36415; 81025; 82962; 83735; 85027; 86850; 86900; 86901; 87426; 88307; C9803; J7120; J2405

== ENCOUNTER 2021-07-26 16:18 | Emergency (ER) | payer MEDICAID, SELFPAY ==
[2021-07-26 16:19] VITALS: BP 141/84; PULSE 89; RESP 16; TEMP 36.3; O2SAT 99; BMI 42.7
[2021-07-26 16:45] LABS: Bacteria 0 SEEN /hpf (None Seen); Mucous, Urine 0 SEEN /hpf (<or=2+); Squamous Epithelial Cells - UA 0 SEEN /hpf (5-10)
[2021-07-26 16:47] LABS: Absolute Lymphocyte Count 3.75 X10^3/uL (0.83-4.51); Absolute Neutrophil Count 7.4 X10^3/uL (2.0-7.7); Basophil# 0.04 X10^3/uL; Basophil% 0.3 % (0-1); Eosinophil# 0.12 X10^3/uL; Hematocrit 45.7 % (37-47); Hemoglobin 15.7 g/dL (12.0-15.0); Lymphocyte # 3.75 X10^3/ul (0.83-4.51); Lymphocyte % 31.5 % (19-41); Mean Corp Hgb Conc 34.4 g/dL (32-36); Mean Corpuscular Hgb 31.8 pg (27.0-32.0); Mean Corpuscular Volume 92.5 fL (81-99); Mean Platelet Vol. 9.4 fl (6.2-12.0); Monocyte# 0.55 X10^3/uL; Monocyte% 4.6 % (0-10); NRBC Flagged by Analyzer 0 % (0-5); Neutrophil # 7.39 X10^3/uL (2.7-7.7); Neutrophil % 62.3 % (47-70); Platelet Count 368 K/mm3 (150-450); RBC Distribution Width CV 12.5 % (11.6-14.6); RBC Distribution Width SD 42.9 fl (35.1-43.9); Red Blood Count 4.94 M/mm3 (4.2-5.4); White Blood Count 11.9 K/mm3 (4.4-11.0)
--- NOTE | 2021-07-26 16:51 | ED.VIS.FEGU ---
HPI HPI - Female History of Present Illness Chief Complaint: Vag Bleeding Narrative Narrative: Presents with right-sided abdominal pain that she had after a fall today. She was concerned because she fell today, had a mechanical fall and hit the right side of her abdomen. She was worried because 3 weeks ago she had a hysterectomy/partial hysterectomy by Dr. Guillermina Pate. She states that she had dark brown discharge and bleeding today from the vaginal area after she stood up from her fall. She denies any chest pain or lightheadedness. No fevers or chills. She is complaining of pain on the right side of her abdomen. She is followed up from her surgery, and states that her COMPENSATION ASSOCIATE told her there was no need to check the internal sutures. PFSH PFS Medical History Anxiety Anxiety with depression Asthma Back pain Chronic pelvic pain in female ALVARO III (cervical intraepithelial neoplasia grade III) with severe dysplasia Depression Intramural uterine fibroid Migraine headache Panic disorder Smoker Wears glasses Home Medications bupropion HCl [Wellbutrin XL] 150 mg PO DAILY 01/07/20 [History Last Taken Unknown] albuterol sulfate 1 - 2 puff INHALATION PRN PRN 07/04/21 [History Last Taken Unknown] trazodone 50 mg PO QHS 07/04/21 [History Last Taken Unknown] acetaminophen [Acetaminophen Extra Strength] 1,000 mg PO Q6H PRN 20 Days #60 tab 07/11/21 [Rx Last Taken Unknown] docusate sodium [DOK] 100 mg PO BID PRN PRN 20 Days #60 capsule 07/11/21 [Rx Last Taken Unknown] ibuprofen 600 mg PO Q6H PRN #60 tablet 07/11/21 [Rx Last Taken Unknown] oxycodone 5 mg PO Q6H PRN PRN 7 Days #20 tablet 07/11/21 [Rx Last Taken Unknown] Allergy/AdvReac Type Severity Reaction Status Date / Time Latex, Natural Rubber Allergy Rash Verified 07/26/21 16:19 Family History Aunt Diabetes Grandmother CVA (cerebral vascular accident) Cancer Hypertension Thyroid disorder Grandfather Diabetes CVA (cerebral vascular accident) Mother Hypertension Depression Bipolar 1 disorder Sister Hypertension Asthma Depression Bipolar 1 disorder Thyroid disorder Surgical History History of tonsillectomy and adenoidectomy Hx of section Status post colposcopy (~02/16/18) Social History Smoking Status: Current every day smoker tobacco type: cigarettes alcohol intake: never substance use type: does not use caffeine: No what type of physical activity do you participate in: none seatbelt use: sometimes do you feel safe at home: Yes additional social history: Single-Patient is unemployed ROS ROS ED ROS Narrative Constitutional: No fever, no chills. HEENT: No sore throat. No neck pain. No loss of vision. No rhinorrhea. Cardiovascular: No chest pain. No palpitations. No pedal edema. Respiratory: No cough, no shortness of breath. Abdominal: Right-sided abdominal pain. No nausea. No vomiting. Genitourinary: No dysuria. No hematuria. Dark brown discharge/vaginal bleeding after standing up from fall. Musculoskeletal: No myalgias. No arthralgias. Neurologic: No headaches. No dizziness. No lightheadedness. Skin: No rash. No change in color. Psychiatric: No depression. No anxiety. EXAM Physical Exam Narrative Exam Narrative: Afebrile. Vital signs noted. HEENT: Normocephalic. Atraumatic. PERRL, EOMI. Neck soft and supple. No point tenderness or step off. Cardiovascular: Regular rate and rhythm. No murmurs, rubs, or gallops appreciated. Respiratory: No tachypnea. Lungs clear to auscultation bilaterally. Gastrointestinal: Abdomen soft, nontender, with normoactive bowel sounds. No rebound or guarding. Neurological: Awake. Alert. Nonfocal, nonlateralizing. Skin: No rash. Normal color. No pallor. Musculoskeletal: No pedal edema. Full range of motion extremities. Const Vital Signs: 07/26/21 16:19 07/26/21 17:29 Temperature 97.4 F L Temperature Source Temporal Pulse Rate 89 61 Respiratory Rate 16 14 Blood Pressure 141/84 H 100/66 Blood Pressure Mean 103 77 Pulse Ox 99 96 Oxygen Delivery Method Room Air MDM MDM MDM Narrative Medical decision making narrative: Patient has a slightly elevated white count of 11.9. I will check basic laboratory work and a CT with IV contrast to make sure there is no abscess development. I will defer pelvic examination as she states that she has not had any bright red blood vaginally. I do think that may be postsurgical, old blood. I will discuss the patient with Dr. Pate or whoever is on-call for her. She has a stable hemoglobin of 15.7. Electrolyte panel is grossly unremarkable. Urinalysis shows no evidence of infection. CT the abdomen pelvis shows no acute air/free air or fluid. No acute process. At this point in time, I was able to discuss the patient with the COMPENSATION ASSOCIATE team. Was not felt that speculum examination was required. She most likely has an abdominal wall contusion. I feel she be discharged safely home with follow-up. She can keep her appointment for 5 to 6-week follow-up from her surgery or follow-up with Dr. Pate in 2 weeks. Return instructions were reviewed. Disposition is discharged home in stable condition. Lab Data Attestation: I reviewed the patient's lab results. Labs: Laboratory Results - last 24 hr 07/26/21 07/26/21 07/26/21 16:36 16:40 16:40 WBC 11.9 H RBC 4.94 Hgb 15.7 H Hct 45.7 MCV 92.5 MCH 31.8 MCHC 34.4 RDW Std Deviation 42.9 RDW Coeff of Shaggy 12.5 Plt Count 368 MPV 9.4 Immature Gran % (Auto) 0.300 Neut % (Auto) 62.3 Lymph % (Auto) 31.5 Guthrie % (Auto) 4.6 Eos % (Auto) 1.0 Baso % (Auto) 0.3 Absolute Neuts (auto) 7.4 Absolute Lymphs (auto) 3.75 Nucleated RBC % 0 Sodium 138 Potassium 3.5 Chloride 106 Carbon Dioxide 27.0 Anion Gap 5 BUN 8 Creatinine 0.86 Estim Creat Clear Calc 83.44 Est GFR (MDRD) Af Amer 104 Est GFR (MDRD) Non-Af 86 BUN/Creatinine Ratio 9.3 L Glucose 89 Calcium 9.3 Urine Color Yellow Urine Clarity Clear Urine pH 6.0 Ur Specific [place] 1.025 Urine Protein 100 H Urine Glucose (UA) Normal Urine Ketones 5 H Urine Occult Blood 150 H Urine Nitrite Negative Urine Bilirubin Negative Urine Urobilinogen 1 H Ur Leukocyte Esterase 100 H Urine RBC 0-5 SEEN Urine WBC 0-5 SEEN Ur Squamous Epith Cells 0 SEEN Urine Bacteria 0 SEEN Urine Mucus 0 SEEN Radiography Diagnostic Testing: Clinical Impression(s) from Imaging Studies Abdomen/Pelvis CT 07/26/21 17:02 IMPRESSION: No suspicious solid abnormality No free intraperitoneal fluid, air, or suspicious adenopathy Normal appendix visualized Electronically Signed: Brian Stevens MD at 17:19 EST , Service support , Discharge Plan Triage Chief Complaint: Vag Bleeding ED Provider: Jake Ferris Dx/Rx/DC Orders Clinical Impression: Fall, Abdominal pain, Contusion of abdominal wall Instructions: ED Soft Tissue Contusion, ED Fall with Uncertain Cause Prescriptions: No Action bupropion HCl [Wellbutrin XL] 150 MG tablet extended release 24 hr 150 mg PO DAILY RF: 0 trazodone 50 mg tablet 50 mg PO QHS RF: 0 albuterol sulfate 90 mcg/actuation HFA aerosol inhaler 1 - 2 puff INHALATION PRN PRN (Reason: ASTHMA) RF: 0 acetaminophen [Acetaminophen Extra Strength] 500 mg tablet 1,000 mg PO Q6H PRN (Reason: fever or pain) 20 Days Qty: 60 RF: 1 docusate sodium [DOK] 100 MG capsule 100 mg PO BID PRN PRN (Reason: constipation) 20 Days Qty: 60 RF: 1 ibuprofen [ibuprofen] 600 MG tablet 600 mg PO Q6H PRN (Reason: Pain) Qty: 60 RF: 1 oxycodone 5 MG tablet 5 mg PO Q6H PRN PRN (Reason: severe pain) 7 Days Qty: 20 RF: 0 Primary Care Provider: Vj Robles Referrals: Guillermina Pate MD [STAFF PHYSICIAN] - 08/09/21 (Follow up in 2 weeks or when you have a 5-6 week surgery follow up) Vj Robles MD [Primary Care Provider] - Disposition Disposition: Home, Self Care
[2021-07-26] MEDS: 0.9% Normal Saline 1,000 ML 1000 ML IV (16:54)
[2021-07-26 16:57] LABS: Color, Urine Yellow (Yellow); Glucose, Dipstick Normal (Normal); Ketone-Dipstick 5 mg/dl (Negative); Leukocyte Esterase-Dipstick 100 /ul (Negative); Nitrite-Dipstick Negative (Negative); Occult Blood-Urine 150 /ul (Negative); Protein-Dipstick 100 mg/dl (Negative); Specific Gravity, Urine 1.025 (1.002-1.030); Urine Bilirubin Dipstick Negative (Negative); Urine Clarity Clear (Clear); Urine Urobilinogen 1 mg/dl (Normal)
[2021-07-26 17:02] LABS: Red Blood Cells-Urine 0-5 SEEN /hpf (0-5); White Blood Cells 0-5 SEEN /hpf (0-5)
--- NOTE | 2021-07-26 17:02 | CT_ITS ---
STUDY: CT ABDOMEN AND PELVIS WITH CONTRAST REASON FOR EXAM: Female, 25 years old. Diffuse abdominal pain, nausea RADIATION DOSAGE (If Supplied By Facility): CTDIvol = ( 31.95 ) mGy, DLP = ( 1263.50 ) mGycm TECHNIQUE: Transaxial images were obtained from the dome of the diaphragm to the symphysis pubis without oral contrast. IV 100mL Isovue-370 was administered. Sagittal and coronal images were reconstructed. Individualized dose optimization techniques were used for this CT. COMPARISON: 03/07/2021 FINDINGS: The visualized lung bases are unremarkable. The visualized portions of the heart are within normal limits. Normal liver. Normal gallbladder and extrahepatic biliary system. Normal spleen. Normal pancreas. Normal bilateral adrenal glands. Normal right kidney. Normal left kidney. Normal visualized stomach. Normal small intestine. Normal colon. The appendix is visualized and appears normal. Normal appendix seen on coronal recon images 54 through 59 Normal abdominal aorta. Normal inferior vena cava. Normal retroperitoneum. Normal urinary bladder. Normal abdominal wall. Normal osseous structures. CT/Abdomen/Pelvis W IV Cont ONLY IMPRESSION: No suspicious solid abnormality No free intraperitoneal fluid, air, or suspicious adenopathy Normal appendix visualized Electronically Signed: Brian Stevens MD at 17:19 EST , Service support ,
[2021-07-26 17:15] LABS: Anion Gap 5 (5-15); BUN 8 mg/dL (7-18); BUN/Creat Ratio 9.3 RATIO (10-20); Calcium,Total 9.3 mg/dL (8.5-10.1); Chloride 106 mmol/L (98-107); Creatinine, Serum 0.86 mg/dL (0.55-1.02); EST Glomerular Filtration Rate 86 mL/min (>60); Est Glom Filt Rate - Afr Amer 104 mL/min (>60); Estimated Creatinine Clearance 83.44 ml/min; Glucose 89 mg/dL (74-106); Potassium 3.5 mmol/L (3.5-5.1); Sodium Level 138 mmol/L (136-145)
[2021-07-26 17:29] VITALS: BP 100/66; PULSE 61; RESP 14; O2SAT 96
== END 2021-07-26 18:08 | disposition home or self-care (01) ==
PROVIDERS: Emergency Provider Emergency Medicine; PCP Family Medicine
DX: S30.1XXA Contusion of abdominal wall, initial encounter (principal); W18.30XA Fall on same level, unspecified, initial encounter; Y93.9 Activity, unspecified; Y92.9 Unspecified place or not applicable; Y99.9 Unspecified external cause status; F17.210 Nicotine dependence, cigarettes, uncomplicated; F32.A Depression, unspecified; F41.9 Anxiety disorder, unspecified; Z56.0 Unemployment, unspecified; Z79.899 Other long term (current) drug therapy
CPT/HCPCS: 74177; 80048; 81001; 85025; 96360; 99283; J7030; Q9967; A4216

== ENCOUNTER 2021-09-24 13:31 | Emergency (ER) | payer MEDICAID, SELFPAY ==
[2021-09-24 13:32] VITALS: BP 148/79; PULSE 90; RESP 16; TEMP 37; O2SAT 98; BMI 42.5
--- NOTE | 2021-09-24 14:22 | EX.ED.VIS.HA ---
HPI History of Present Illness Chief Complaint: Headache Informant: patient Narrative Narrative: Nontraumatic headache intermittent since [place] however more persistent over the past week. Pain started to right occiput now in the left frontal. Photophobia. No aura. No nausea or vomiting. History of similar. Is using Tylenol and Aleve with no relief. History of similar in the past. Patient on Wellbutrin for anxiety. Prior similar symptoms: Yes PFSH PFSH Medical History Anxiety Anxiety with depression Asthma Back pain Chronic pelvic pain in female ALVARO III (cervical intraepithelial neoplasia grade III) with severe dysplasia Depression Intramural uterine fibroid Migraine headache Panic disorder Smoker Wears glasses Home Medications bupropion HCl [Wellbutrin XL] 150 mg PO DAILY 01/07/20 [History Last Taken Unknown] albuterol sulfate 1 - 2 puff INHALATION PRN PRN 07/04/21 [History Last Taken Unknown] trazodone 50 mg PO QHS 07/04/21 [History Last Taken Unknown] acetaminophen [Acetaminophen Extra Strength] 1,000 mg PO Q6H PRN 20 Days #60 tab 07/11/21 [Rx Last Taken Unknown] docusate sodium [DOK] 100 mg PO BID PRN PRN 20 Days #60 capsule 07/11/21 [Rx Last Taken Unknown] ibuprofen 600 mg PO Q6H PRN #60 tablet 07/11/21 [Rx Last Taken Unknown] oxycodone 5 mg PO Q6H PRN PRN 7 Days #20 tablet 07/11/21 [Rx Last Taken Unknown] Allergy/AdvReac Type Severity Reaction Status Date / Time Latex, Natural Rubber Allergy Rash Verified 09/24/21 13:33 Family History Aunt Diabetes Grandmother CVA (cerebral vascular accident) Cancer Hypertension Thyroid disorder Grandfather Diabetes CVA (cerebral vascular accident) Mother Hypertension Depression Bipolar 1 disorder Sister Hypertension Asthma Depression Bipolar 1 disorder Thyroid disorder Surgical History History of tonsillectomy and adenoidectomy Hx of section Status post colposcopy (~02/16/18) Social History Smoking Status: Current every day smoker tobacco type: cigarettes alcohol intake: never substance use type: does not use caffeine: No what type of physical activity do you participate in: none seatbelt use: sometimes do you feel safe at home: Yes additional social history: Single-Patient is unemployed ROS ROS ED Constitutional Constitutional ED: Denies chills, fever(s) or sweats Eyes Eyes: Denies change in vision ENT ENT ED: Denies dysphagia or sore throat Cardiovascular Cardiovascular: Denies chest pain, leg edema, palpitations or racing heartbeat Respiratory/Chest Respiratory/Chest: Denies cough, dyspnea or dyspnea on exertion Gastrointestinal Gastrointestinal: Denies abdominal pain, diarrhea, nausea or vomiting Genitourinary Genitourinary ED: Denies dysuria, hematuria or urinary frequency Musculoskeletal Musculoskeletal: Denies back pain, extremity pain or neck pain Integumentary Denies rash or wounds Neurologic Neurologic: Reports headache(s); Denies paresthesias or weakness EXAM Physical Exam Const Vital Signs: 09/24/21 13:32 Temperature 98.6 F Temperature Source Temporal Pulse Rate 90 Respiratory Rate 16 Blood Pressure 148/79 H Blood Pressure Mean 102 Pulse Ox 98 Oxygen Delivery Method Room Air Positive well nourished and well developed General Appearance ED: well developed and NAD HEENT Reports moist mucous membranes normocephalic and atraumatic Eyes PERRL, EOMs intact bilaterally and conjunctivae normal General Eye ED: Yes normal appearance of both eyes Neck no lymphadenopathy, supple and no meningeal signs General: Negative for tenderness Chest Wall Chest: Negative for tenderness Resp normal respiratory effort and normal air movement Effort and Inspection: symmetric chest movement; Negative for respiratory distress Cardio regular rate, regular rhythm and no murmurs Peripheral Pulses: pulses 2+ throughout GI normal to inspection, nondistended, normoactive bowel sounds and non-tender Palpation: Negative for guarding or rebound tenderness present Back/Spine no CVA tenderness and no thoracic nor lumbar tenderness Extremity normal to inspection General Extremety ED: Negative for edema or tenderness General Extremity: Negative for edema Neuro oriented x3, CN's II-XII intact bilaterally and no sensory deficits noted Sensorium / Orientation: awake and alert Skin no rashes or lesions noted and no wounds MDM MDM MDM Narrative Medical decision making narrative: Patient nontoxic no meningismus. Patient was given subcu Imitrex, monitored initial reevaluation she states no change in symptoms. Ordered for migraine cocktail of fluids Reglan and Benadryl, however per nursing prior to administration with IV her headache resolved. I reevaluated patient does report symptom-free. She will follow-up with her PCP for reevaluation. Patient is being discharged under pandemic conditions under declared global, national and state disaster activation, with limited medical resources. Patient and community understands this. Results discussed in layman's terms to the patient satisfaction. All questions answered in layman's terms. Patient understands importance of follow-up care as directed. Patient has been instructed to return to the ED immediately if new symptoms, problems, or questions occur. We mutually agree with the plan of disposition. The patient understand that they may call or return with any questions or concerns at any time. Discharge Plan Triage Chief Complaint: Headache ED Provider: Sinan Payne Dx/Rx/DC Orders Clinical Impression: Headache, migraine Instructions: ED, Migraine (Classical) Prescriptions: No Action bupropion HCl [Wellbutrin XL] 150 MG tablet extended release 24 hr 150 mg PO DAILY RF: 0 trazodone 50 mg tablet 50 mg PO QHS RF: 0 albuterol sulfate 90 mcg/actuation HFA aerosol inhaler 1 - 2 puff INHALATION PRN PRN (Reason: ASTHMA) RF: 0 acetaminophen [Acetaminophen Extra Strength] 500 mg tablet 1,000 mg PO Q6H PRN (Reason: fever or pain) 20 Days Qty: 60 RF: 1 docusate sodium [DOK] 100 MG capsule 100 mg PO BID PRN PRN (Reason: constipation) 20 Days Qty: 60 RF: 1 ibuprofen [ibuprofen] 600 MG tablet 600 mg PO Q6H PRN (Reason: Pain) Qty: 60 RF: 1 oxycodone 5 MG tablet 5 mg PO Q6H PRN PRN (Reason: severe pain) 7 Days Qty: 20 RF: 0 Primary Care Provider: Vj Robles Referrals: Vj Robles MD [Primary Care Provider] - 3-5 Days if not improving Disposition Disposition: Home, Self Care Discharge Date/Time: 09/24/21 15:57
[2021-09-24] MEDS: SUMAtriptan 6 MG/0.5 ML Vial SC (14:58)
== END 2021-09-24 15:57 | disposition home or self-care (01) ==
PROVIDERS: Emergency Provider Emergency Medicine; PCP Family Medicine; Visit Provider Emergency Medicine
DX: G43.909 Migraine, unspecified, not intractable, without status migrainosus (principal); F41.9 Anxiety disorder, unspecified; F32.A Depression, unspecified; J45.909 Unspecified asthma, uncomplicated; G89.29 Other chronic pain; Z79.899 Other long term (current) drug therapy; F17.210 Nicotine dependence, cigarettes, uncomplicated
CPT/HCPCS: 96372; 99282; J3030

== ENCOUNTER 2021-11-30 13:18 | Emergency (ER) | payer MEDICAID, SELFPAY ==
[2021-11-30 13:19] VITALS: BP 134/83; PULSE 89; RESP 17; TEMP 37.1; O2SAT 97; BMI 43.6
--- NOTE | 2021-11-30 13:44 | EDS_ITS ---
HPI History of Present Illness Chief Complaint: Back Informant: patient Narrative Narrative: Patient presents with back pain. She states has been going on about a month. She states she was sitting on the toilet and strained hard and felt a sharp pain in the right side of her back. She is moving her bowels normally. She is urinating normally. There is no radicular symptoms. No fevers chills or sweats. No numbness tingling weakness at all. She has had some back problems before but none of significance. She has never had prior surgeries. She has gone to a chiropractor but this is not helped. No other symptoms at all. [facility] Medical History Anxiety Anxiety with depression Asthma Back pain Chronic pelvic pain in female ALVARO III (cervical intraepithelial neoplasia grade III) with severe dysplasia Depression Intramural uterine fibroid Migraine headache Panic disorder Smoker Wears glasses Home Medications bupropion HCl [Wellbutrin XL] 150 mg PO DAILY 01/07/20 [History Last Taken Unknown] albuterol sulfate 1 - 2 puff INHALATION PRN PRN 07/04/21 [History Last Taken Unknown] trazodone 50 mg PO QHS 07/04/21 [History Last Taken Unknown] acetaminophen [Acetaminophen Extra Strength] 1,000 mg PO Q6H PRN 20 Days #60 tab 07/11/21 [Rx Last Taken Unknown] ibuprofen 600 mg PO Q6H PRN #60 tablet 07/11/21 [Rx Last Taken Unknown] cyclobenzaprine 10 mg PO BID PRN #15 tab 11/30/21 [Rx Last Taken Unknown] hydroxyzine pamoate 25 mg PO BID 11/30/21 [History Last Taken Unknown] naproxen 500 mg PO BID #14 tab 11/30/21 [Rx Last Taken Unknown] Allergy/AdvReac Type Severity Reaction Status Date / Time Latex, Natural Rubber Allergy Rash Verified 11/30/21 13:19 Family History Aunt Diabetes Grandmother CVA (cerebral vascular accident) Cancer Hypertension Thyroid disorder Grandfather Diabetes CVA (cerebral vascular accident) Mother Hypertension Depression Bipolar 1 disorder Sister Hypertension Asthma Depression Bipolar 1 disorder Thyroid disorder Surgical History History of hysterectomy History of tonsillectomy and adenoidectomy Hx of section Status post colposcopy (~02/16/18) Social History Smoking Status: Current every day smoker tobacco type: cigarettes alcohol intake: never substance use type: does not use caffeine: No what type of physical activity do you participate in: none seatbelt use: sometimes do you feel safe at home: Yes additional social history: Single-Patient is unemployed ROS ROS ED Constitutional Constitutional ED: Denies chills, fever(s), subjective or sweats ENT ENT ED: Denies rhinorrhea or sore throat Cardiovascular Cardiovascular: Denies chest pain Respiratory/Chest Respiratory/Chest: Denies dyspnea or sputum Gastrointestinal Gastrointestinal: Denies abdominal pain, constipation, diarrhea, melena, nausea or vomiting Genitourinary Genitourinary ED: Reports other Details: Patient had hysterectomy back in June. ; Denies dysuria, hematuria or urinary frequency Musculoskeletal Musculoskeletal: Reports back pain; Denies neck pain Integumentary Denies rash Neurologic Neurologic: Denies paresthesias or weakness Psychiatric Psychiatric: Reports anxiety and depression Endocrine Endocrinology: Denies polydipsia or polyuria Hematologic/Lymphatic Hematologic/Lymphatic: Denies easy bleeding or easy bruising Allergic/Immunologic Allergic/Immunologic ED: Denies mouth swelling or urticaria EXAM Physical Exam Const Vital Signs: 11/30/21 13:19 Temperature 98.7 F Temperature Source Temporal Pulse Rate 89 Respiratory Rate 17 Blood Pressure 134/83 H Blood Pressure Mean 100 Pulse Ox 97 Oxygen Delivery Method Room Air Positive well nourished, well developed and obese General Appearance ED: well developed and NAD Nutritional Appearance: obese HEENT Reports moist mucous membranes Eyes General Eye ED: Negative for pale conjunctiva Neck no JVD Resp normal respiratory effort and clear to auscultation bilaterally Cardio regular rate and regular rhythm GI normal to inspection, nondistended, normoactive bowel sounds, soft to palpation, non-tender, non-distended and no masses Palpation: Negative for tender or guarding Back/Spine normal to inspection Back/Spine Narrative: Patient has tenderness just to the right side at about L2. No left-sided tenderness. There is really no more lateral CVA tenderness. There is no rash or skin changes. Extremity normal to inspection General Extremety ED: Negative for edema or tenderness General Extremity: Negative for edema Psych mental status grossly normal Skin no rashes or lesions noted and no wounds MDM MDM MDM Narrative Medical decision making narrative: Patient's x-ray showed no acute process. There is some muscle spasm suspected by the x-ray. Patient's had symptoms for almost a month. Other than that there is no red flags of back pain. There is no numbness tingling weakness bowel or bladder dysfunction. No fevers chills or recent infection. No immunosuppression. No significant trauma. I think she can go home with rest ice nonsteroidals muscle relaxants. Recommend follow-up with her physician. She may benefit from physical therapy or further evaluation as needed. We discussed returning with worsening pain or the above symptoms. Radiography Diagnostic Testing: Clinical Impression(s) from Imaging Studies Lumbar Spine X-Ray 11/30/21 13:44 IMPRESSION: Straightening of the lumbar spine which could be due to muscle spasm. Minimal levoscoliosis. No demonstrated acute fracture. Electronically Signed: Scotty Soni MD at 14:31 EDT , Discharge Plan Triage Chief Complaint: Back ED Provider: Rony Carrillo Dx/Rx/DC Orders Clinical Impression: Lumbar back pain, Lumbar paraspinal muscle spasm Instructions: ED Back Sprain/Strain Prescriptions: New cyclobenzaprine 10 mg tablet 10 mg PO BID PRN (Reason: muscle spasm) Qty: 15 RF: 0 naproxen 500 MG tablet 500 mg PO BID Qty: 14 RF: 0 No Action bupropion HCl [Wellbutrin XL] 150 MG tablet extended release 24 hr 150 mg PO DAILY RF: 0 trazodone 50 mg tablet 50 mg PO QHS RF: 0 albuterol sulfate 90 mcg/actuation HFA aerosol inhaler 1 - 2 puff INHALATION PRN PRN (Reason: ASTHMA) RF: 0 acetaminophen [Acetaminophen Extra Strength] 500 mg tablet 1,000 mg PO Q6H PRN (Reason: fever or pain) 20 Days Qty: 60 RF: 1 ibuprofen [ibuprofen] 600 MG tablet 600 mg PO Q6H PRN (Reason: Pain) Qty: 60 RF: 1 hydroxyzine pamoate 25 mg capsule 25 mg PO BID RF: 0 Primary Care Provider: Vj Robles Referrals: Vj Robles MD [Primary Care Provider] - 1 Week if not improving Disposition Disposition: Home, Self Care
--- NOTE | 2021-11-30 13:44 | RAD_ITS ---
STUDY: X-RAY - LUMBAR SPINE REASON FOR EXAM: Female, 26 years old. Pain TECHNIQUE: AP and lateral view(s) of the lumbar spine were obtained. COMPARISON: None FINDINGS: There is straightening of the normal lumbar lordosis. There is mild levoscoliosis. There is a normal alignment of the vertebrae. Normal vertebral bodies and endplates. Minimal disc space narrowing of L4-L5. There is no demonstrated fracture. There is no demonstrated spondylolysis of the pars interarticulares. The soft tissue structures are unremarkable. RAD/Lumbar Spine 2 or 3 Views IMPRESSION: Straightening of the lumbar spine which could be due to muscle spasm. Minimal levoscoliosis. No demonstrated acute fracture. Electronically Signed: Scotty Soni MD at 14:31 EDT ,
[2021-11-30] MEDS: Naproxen 500 MG Tablet PO (15:39)
[2021-11-30] MEDS: cycloBENZAPRine HCl 10 MG Tablet PO (15:39)
== END 2021-11-30 15:42 | disposition home or self-care (01) ==
PROVIDERS: Emergency Provider Emergency Medicine; PCP Family Medicine; Visit Provider Emergency Medicine
DX: M54.50 Low back pain, unspecified (principal); Z68.41 Body mass index [BMI] 40.0-44.9, adult; M62.830 Muscle spasm of back; J45.909 Unspecified asthma, uncomplicated; E66.9 Obesity, unspecified; F32.A Depression, unspecified; F41.9 Anxiety disorder, unspecified; F17.210 Nicotine dependence, cigarettes, uncomplicated; Z79.51 Long term (current) use of inhaled steroids; Z79.899 Other long term (current) drug therapy
CPT/HCPCS: 72100; 99283

== ENCOUNTER 2022-05-18 11:02 | Emergency (ER) | payer MEDICAID, SELFPAY ==
[2022-05-18 11:03] VITALS: BP 152/97; PULSE 103; RESP 14; TEMP 36.8; O2SAT 97; BMI 42.8
--- NOTE | 2022-05-18 11:11 | EX.ED.VIS.UR ---
HPI HPI - URI History of Present Illness Chief Complaint: Sore Throat Informant: patient Narrative Narrative: 26-year-old female presenting to the emergency department with sore throat. She states that 4 days ago she began to have a sore throat and states that it feels that it is progressively worsening. She denies any runny nose or earache. She notes she has had a fever each of the past 2 nights none today. She states that while she is a smoker she has not slept in 2 days. No rashes. No significant cough. She did have an emesis last night. ROS ROS ED Constitutional Constitutional ED: Reports fever(s); Denies chills or weight loss Eyes Eyes: Denies change in vision or diplopia ENT ENT ED: Reports sore throat; Denies ear pain or rhinorrhea Cardiovascular Cardiovascular: Denies chest pain, orthopnea, palpitations or racing heartbeat Respiratory/Chest Respiratory/Chest: Denies cough, dyspnea or orthopnea Gastrointestinal Gastrointestinal: Reports vomiting; Denies abdominal pain, diarrhea or nausea Genitourinary Genitourinary ED: Denies dysuria, hematuria or urinary frequency Musculoskeletal Musculoskeletal: Denies arthralgias or myalgias Integumentary Denies abscess or rash Neurologic Neurologic: Denies headache(s) or weakness Psychiatric Psychiatric: Denies anxiety, depression, suicidal ideation or suicidal thoughts Endocrine Endocrinology: Denies polydipsia, polyphagia or polyuria Allergic/Immunologic Allergic/Immunologic ED: Denies mouth swelling, tongue swelling or urticaria PFSH [facility] Medical History Anxiety Anxiety with depression Asthma Back pain Chronic pelvic pain in female ALVARO III (cervical intraepithelial neoplasia grade III) with severe dysplasia Depression Intramural uterine fibroid Migraine headache Panic disorder Smoker Wears glasses Home Medications bupropion HCl 150 mg 24 hr tablet, extended release (Wellbutrin XL) 150 mg PO DAILY 01/07/20 [History Last Taken Unknown] albuterol sulfate 90 mcg/actuation aerosol inhaler 1 - 2 puff inhalation PRN PRN ASTHMA 07/04/21 [History Last Taken Unknown] trazodone 50 mg tablet 50 mg PO QHS 07/04/21 [History Last Taken Unknown] acetaminophen 500 mg tablet (Acetaminophen Extra Strength) 1,000 mg PO Q6H PRN fever or pain 20 days #60 tabs 07/11/21 [Rx Last Taken Unknown] ibuprofen 600 mg tablet 600 mg PO Q6H PRN Pain #60 TABLETS 07/11/21 [Rx Last Taken Unknown] cyclobenzaprine 10 mg tablet 10 mg PO BID PRN muscle spasm #15 tabs 11/30/21 [Rx Last Taken Unknown] hydroxyzine pamoate 25 mg capsule 25 mg PO BID 11/30/21 [History Last Taken Unknown] naproxen 500 mg tablet 500 mg PO BID #14 tabs 11/30/21 [Rx Last Taken Unknown] Allergy/AdvReac Type Severity Reaction Status Date / Time Latex, Natural Rubber Allergy Rash Verified 05/18/22 11:03 Family History Aunt Diabetes Grandmother CVA (cerebral vascular accident) Cancer Hypertension Thyroid disorder Grandfather Diabetes CVA (cerebral vascular accident) Mother Hypertension Depression Bipolar 1 disorder Sister Hypertension Asthma Depression Bipolar 1 disorder Thyroid disorder Surgical History History of hysterectomy History of tonsillectomy and adenoidectomy Hx of section Status post colposcopy (~02/16/18) Social History Smoking Status: Current every day smoker tobacco type: cigarettes alcohol intake: never substance use type: does not use caffeine: No what type of physical activity do you participate in: none seatbelt use: sometimes do you feel safe at home: Yes additional social history: Single-Patient is unemployed EXAM Physical Exam Const Vital Signs: 05/18/22 11:03 Temperature 98.2 F Temperature Source Temporal Pulse Rate 103 H Respiratory Rate 14 Blood Pressure 152/97 H Blood Pressure Mean 115 Pulse Ox 97 Oxygen Delivery Method Room Air Positive well nourished, well developed and obese General Appearance ED: well developed Nutritional Appearance: obese HEENT Reports normocephalic, head/scalp atraumatic and moist mucous membranes HEENT Narrative: There is oropharyngeal erythema. She is without tonsils. There is no petechiae. She is handling her secretions normally. Her breath smells heavily of tobacco. I see no evidence of peritonsillar or retropharyngeal abscess. Eyes PERRL and EOMs intact bilaterally Neck supple and no JVD General: lymphadenopathy anterior cervical tender Resp normal respiratory effort and clear to auscultation bilaterally Cardio regular rate, regular rhythm and no murmurs GI normal to inspection, nondistended, normoactive bowel sounds and non-tender Palpation: soft Back/Spine no CVA tenderness and normal ROM Extremity normal to inspection General Extremety ED: Negative for edema General Extremity: Negative for edema Neuro oriented x3 and CN's II-XII intact bilaterally Sensorium / Orientation: alert Motor Exam: strength 5/5 throughout Psych mental status grossly normal Mood & Affect: Negative for depressed or tearful Skin no rashes or lesions noted and no wounds MDM MDM MDM Narrative Medical decision making narrative: Davison test is negative. COVID test is negative. Clinically this appears to be more of a viral pharyngitis. Patient was given a dose of Decadron will be discharged home. Return if worsening or concerns. Lab Data Attestation: I reviewed the patient's lab results. Labs: Laboratory Results - last 24 hr 05/18/22 11:21 Monoscreen Negative Discharge Plan Triage Chief Complaint: Sore Throat ED Provider: Barak Levin Dx/Rx/DC Orders Clinical Impression: Pharyngitis Instructions: ED Pharyngitis, Viral Prescriptions: No Action bupropion HCl [Wellbutrin XL] 150 MG tablet extended release 24 hr 150 mg PO DAILY trazodone 50 mg tablet 50 mg PO QHS Label Comments: take 1/2 to 1 tablet by mouth at bedtime albuterol sulfate 90 mcg/actuation HFA aerosol inhaler 1 - 2 puff INHALATION PRN PRN (Reason: ASTHMA) Label Comments: inhale 2 puffs by mouth and INTO THE LUNGS every 4 hours if needed acetaminophen [Acetaminophen Extra Strength] 500 mg tablet 1,000 mg PO Q6H PRN (Reason: fever or pain) 20 Days Qty: 60 1RF ibuprofen [ibuprofen] 600 MG tablet 600 mg PO Q6H PRN (Reason: Pain) Qty: 60 1RF hydroxyzine pamoate 25 mg capsule 25 mg PO BID cyclobenzaprine 10 mg tablet 10 mg PO BID PRN (Reason: muscle spasm) Qty: 15 0RF naproxen 500 MG tablet 500 mg PO BID Qty: 14 0RF Primary Care Provider: Vj Robles Referrals: Vj Robles MD [Primary Care Provider] - As Needed Disposition Disposition: Home, Self Care
[2022-05-18] MEDS: dexAMETHasone 10 MG/ML Vial PO.IVFORM (11:32)
[2022-05-18 11:45] LABS: Internal QC Validated? YES +Cl - CLEAR BKGD; Monotest Negative (Negative)
[2022-05-18 12:00] VITALS: RESP 16
== END 2022-05-18 12:03 | disposition home or self-care (01) ==
PROVIDERS: Emergency Provider Emergency Medicine; PCP Family Medicine; Visit Provider Emergency Medicine
DX: J02.9 Acute pharyngitis, unspecified (principal); Z68.41 Body mass index [BMI] 40.0-44.9, adult; F32.A Depression, unspecified; G89.29 Other chronic pain; F41.0 Panic disorder [episodic paroxysmal anxiety]; Z79.899 Other long term (current) drug therapy; J45.909 Unspecified asthma, uncomplicated; G43.909 Migraine, unspecified, not intractable, without status migrainosus; F17.210 Nicotine dependence, cigarettes, uncomplicated; E66.9 Obesity, unspecified
CPT/HCPCS: 86308; 87811; 99283

== ENCOUNTER 2024-02-26 08:00 | Outpatient (RCR) | payer MEDICAID, SELFPAY ==
--- NOTE | 2024-02-26 09:00 | BH.SGPN.GN ---
Behaviors/Verbalizations/Mental Status: [] Eye contact good. Motor activity appropriate. Speech within normal limits. Affect congruent, mood anxious. Thoughts linear, logical, no signs of hallucinations or delusions. Reviewed client?s symptom tracker, denies SI, plan, or intent Client Response/Progress/Benefit: [] Pt participated at times during the group discussions. Attentive. Daily symptom tracker notes 5/5 for anxiety, 4/5 for irritability, and 3/5 for depression. This was pt's first day in IOP. Briefly introduced herself stating she was very anxious. Her goals for treatment are to set boundaries and to stop being a push-over. She discussed people-pleasing behaviors which are impacting her mental health. Reports feeling overwhelmed with frequent anger outbursts. No progress noted as this was pt's first day in IOP. Benefited from group support and encouragement. Will continue in IOP to prevent decompensation, stabilize mood, and increase healthy coping skills. Narrative Note: []
--- NOTE | 2024-02-26 10:10 | BH.SGPN.GN ---
Behaviors/Verbalizations/Mental Status: []Eye contact is good. Motor activity is appropriate. Appearance is neat. Speech is Appropriate. Mood is anxious. Affect is congruent. Thoughts are linear and logical. No evidence of psychosis Client Response/Progress/Benefit: [] Pt was an active participant in group discussion and experiential activity. Attentive during psychoeducation on resilience. Participated during interactive discussion with peers on the definition of resilience. Able to relate experiential activity of group juggle to topics of resilience. Group worked together to identify what can impact one's ability to be resilient which included past experiences, trauma, toxic support system, lack of resources, and current mental/physical health state. Worked well with peers in small group in which they identified factors that contribute to building resilience. Pt?s group worked on the importance of nurturing a positive view of self. Benefited from increased awareness of resilience and the factors that contribute to building resilience. Will continue in IOP to prevent decompensation, gain healthy coping skills, and gain healthy support. Narrative Note: []
--- NOTE | 2024-02-26 11:10 | BH.SGPN.GN ---
Behaviors/Verbalizations/Mental Status: []Pt alert and oriented, neatly dressed and groomed. Eye contact good. Motor activity appropriate. Speech within normal limits. Affect congruent, mood anxious. Thoughts linear, logical, no signs of hallucinations or delusions. Client Response/Progress/Benefit: [] Pt responded well to session AEB completing the resilience worksheet provided. Pt participated in the discussion and worked cooperatively with group to identify strategies to enhance each of the components discussed. Pt reports belief they already use resilience traits of??accepting that change is a part of life and maintaining hopeful outlook.? Pt stated they would like to continue to develop resilience trait of ?nuring positive self? at pt recognizes she struggles with identifying her strengths. Pt seemed to benefit from discussing strategies for improving personal resilience and identifying resilience traits pt already possesses. Will continue IOP tx to improve distress tolerance, improve boundary setting, and prevent decompensation.
--- NOTE | 2024-02-26 14:57 | BH.COMM_ITS ---
Communication Note Communication with Client Communication Note: Met with pt to complete initial paperwork and administer the CSSR-S screening and risk assessment. Pt is low risk as pt has never been hospitalized for psychiatric reasons and denies a hx of suicide ideation. Pt denies any current SI, plan, or intent. Pt has multiple protective factors including her friends, children, and goals for her future. No access to weapons or stockpiles of medications. Discussed case with Dr. Shah and pt will be admitted to [facility] tx with a diagnosis of Bipolar 2, F31.9.
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
[2024-02-29 09:50] VITALS: BP 145/90; PULSE 85
--- NOTE | 2024-02-29 10:15 | BH.SGPN.GN ---
Behaviors/Verbalizations/Mental Status: []Pt alert and oriented, casually dressed and groomed. Eye contact good. Motor activity appropriate. Speech within normal limits. Affect congruent, mood stressed. Thoughts linear, logical, no signs of hallucinations or delusions. Client Response/Progress/Benefit: [] Pt took notes and contributed occasionally. Attentive during psychoeducation on growth mindset. Participated during the activity. Interactive group discussion on growth mindset in which group verbalized their current fixed mindsets and how they affect their mental health. Pt shared common fixed mindset thoughts they have which included I?m not good enough, I can?t do it that way, I can?t get through this anxiety.? These thoughts lead to being scared to fail, low self-esteem, and being stuck in her comfort zone. Pt benefited from increased awareness of growth mindset and fixed thoughts and how fixed thoughts impact their mental health. Will continue IOP tx to prevent decompensation, maintain safety, and gain healthy coping skills. Narrative Note: []
--- NOTE | 2024-02-29 11:15 | BH.SGPN.GN ---
Behaviors/Verbalizations/Mental Status: []Pt alert and oriented, casually dressed and groomed. Eye contact good. Motor activity appropriate. Speech within normal limits. Affect congruent, mood depressed, anxious. Thoughts linear, logical, no signs of hallucinations or delusions. Client Response/Progress/Benefit: [] Pt was an active participant during activity and discussion. Pt did well to remain attentive and participate as group worked on identifying characteristics and benefits of adopting a growth mindset. Worked with fellow participants in reframing the example fixed thoughts into growth mindset thoughts. Pt worked on changing own fixed thought and reframed the thought to ?I am a person too. I can't help others if I don't take care of me too?. Pt appeared to benefit from challenging own thoughts and engaging in the activity. Pt will continue IOP tx to prevent decompensation, improve mood stability, and gain healthy coping skills. ? Narrative Note: []
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
--- NOTE | 2024-02-29 13:00 | BH.DR.ITP ---
Initial Treatment Plan Patient Information Visit Information: ADMISSION DATE: EXPECTED LOS: 4-6 weeks Problems/Symptoms Problem #1:: Depression and mood instability Symptom:: Sadness, worthlessness, anhedonia, biological disruption of sleep, low energy, decreased concentration, passive thoughts of . Problem #2:: Anxiety Symptom:: Worry, rumination, panic attacks, restlessness, avoidance
--- NOTE | 2024-03-01 09:05 | BH.SGPN.GN ---
Behaviors/Verbalizations/Mental Status: [] Eye contact is good. Motor activity is appropriate. Appearance is casual. Speech is Appropriate. Mood is anxious/irritable. Affect is congruent. Thoughts are linear and logical. No evidence of psychosis. Reviewed daily check in sheet and 1/ for suicidal thoughts and 0/5 for intent. Client Response/Progress/Benefit: [] Pt was an active participant in group discussions. Attentive. Daily symptom tracker notes 12/17 for anxiety.Able to identify mental health wins which included ? cooking dinner? and ?calming myself down?. Shared a recent event which resulted in negative thoughts, anger, and depression. Proud of herself for attempting to use skills rather than ? going off?. She was able to identify physiological warning signs, reframe thoughts, and practice mindfulness/grounding techniques which helped her decrease anger. ? This may be the first time ever?. Progress noted. Benefited from group support, encouragement, and feedback. Will continue in IOP to maintain safety, stabilize mood, and increase healthy coping skills. Narrative Note: []
--- NOTE | 2024-03-01 10:10 | BH.SGPN.GN ---
Behaviors/Verbalizations/Mental Status: [] Eye contact is fair to good. Motor activity is appropriate. Appearance is casual. Speech is Appropriate. Mood is dysthymic and anxious. Affect is constricted. Thoughts are linear and logical. No evidence of psychosis. Client Response/Progress/Benefit: []Pt engaged participant AEB listening to others, engaging in activity, and providing feedback. Attentive during psychoeducation and provided insight into obstacles that impede mental wellness. Pt shared with group current mental health reality and desired mental health reality. Stated she would like to get to a place where she feels more healthy and able to see positives. Identified barriers to desired reality include: negativity, freezing, shutting down, putting others first, and poor boundaries. Benefited from taking look at current mental health state and obstacles for progress. Pt to continue IOP tx to improve distress tolerance, increase healthy coping skills, and prevent decompensation.
--- NOTE | 2024-03-01 11:15 | BH.SGPN.GN ---
Behaviors/Verbalizations/Mental Status: [] Eye contact is good. Motor activity is appropriate. Appearance is casual. Speech is Appropriate. Mood is anxious and depressed. Affect is congruent. Thoughts are linear and logical. No evidence of psychosis Client Response/Progress/Benefit: [] Pt was an active participant in group discussion and activity. Worked with group to identify strategies to help overcome barriers and obstacles to desired reality. Group developed strategies for the common barriers. Identified personal barriers to desired reality and choose one obstacle to work. Pt stated she wants to work on barrier of poor boundaries by practicing communicating and reenforcing her boundaries. Pt seemed to benefit from increased repertoire of healthy coping skills/strategies to overcome common barriers to moving forward. Pt is to continue IOP to improve emotion regulation, increase healthy coping skill application, and prevent decompensation. Narrative Note: []
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
--- NOTE | 2024-03-02 09:01 | BH.SGPN.GN ---
Behaviors/Verbalizations/Mental Status: []Pt alert and oriented, casually dressed and groomed. Eye contact good. Motor activity appropriate. Speech within normal limits. Affect congruent. mood anxious. Thoughts linear, logical, no signs of hallucinations or delusions. Reviewed pt?s symptom tracker, no risk for suicidal ideation, plan, or intent. Client Response/Progress/Benefit: []Pt responded well to session, attentive and engaged. Pt reported mental health as being able to manage emotions when feeling frustrated with her boyfriend. Pt stated in the past she would've went off, but was able to keep her cool. Pt stated she also set a boundary with her boyfriend which she reported she is proud of herself for doing so. Pt additional positive as consistently taking her mediations, which she admitted is something she has struggled with in the past. Pt identified relationship and home environment as ongoing stressor. Seemed to benefit from support from peers. Pt will continue IOP tx to improve distress tolerance, increase healthy coping skills, and prevent decompensation.
--- NOTE | 2024-03-02 10:15 | BH.SGPN.GN ---
Behaviors/Verbalizations/Mental Status: [] Eye contact is good. Motor activity is appropriate. Appearance is casual. Speech is Appropriate. Mood is depressed. Affect is congruent. Thoughts are linear and logical. No evidence of psychosis. Client Response/Progress/Benefit: [] Client receptive to session AEB listening attentively to others and taking notes. Limited input however was attentive throughout psychoeducation on the cognitive triangle and maintenance cycles. Attentive during group discussion reviewing the impact of daily activities and behaviors in either reinforcing unhealthy maintenance cycles and depression or assisting in reducing symptoms (?down? vs ?up? activities). Client identified personal ?down? activities they engage in as: avoiding chores, isolation, and not engaging in self-care. Attentive during discussion on Common ?Up? activities client identified theirs to include: completing chores, playing with her kids at the park, and playing in the rain. Appeared to benefit from increased awareness of current behaviors and impact these have on mental health. Will continue in IOP to stabilize mood, prevent decompensation, and improve functioning. Narrative Note: []
--- NOTE | 2024-03-02 11:15 | BH.SGPN.GN ---
Behaviors/Verbalizations/Mental Status: []Eye contact is good. Motor activity is appropriate. Appearance is disheveled. Speech is Appropriate. Mood is dysthymic. Affect is constricted. Thoughts are linear and logical. No evidence of psychosis. Client Response/Progress/Benefit: []Pt responded well to session, attentive and engaged in group discussions and activity. Group discussed values and the benefits that knowing one's values can have on one's mental health. Pt explored own values and identified personal top values. Pt stated a personally important value is mental and emotional health. Pt set a goal to practice self-care after dinner/before bed. Pt also reported benefitting from the activity and the group encouragement today. Will continue in IOP to prevent decompensation, gain healthy coping skills, and improve daily functioning. ? Narrative Note: []
--- NOTE | 2024-03-07 09:05 | BH.SGPN.GN ---
Behaviors/Verbalizations/Mental Status: [] Eye contact is good. Motor activity is appropriate. Appearance is disheveled. Speech is Appropriate. Mood is anxious/irritable. Affect is congruent. Thoughts are linear and logical. No evidence of psychosis. Reviewed daily check in sheet and no reports of suicidal ideations or intent. Client Response/Progress/Benefit: [] Pt was an active participant in group discussions. States she has a million different emotions. Feels shaky and scattered. No specific trigger stating life in general. Erratic emotions. Psychosocial stressors. Struggling with emotion regulation. Focused on making changes stating that she is setting healthy boundaries and communicating more assertively with the people in her life. The has resulted in less verbal outbursts and overall improved anger mgmt. Progress noted per pt report. Benefited from group support, encouragement, and feedback. Will continue in IOP to prevent decompensation, stabilize mood, and increase healthy coping skills. Narrative Note: []
--- NOTE | 2024-03-07 10:10 | BH.SGPN.GN ---
Behaviors/Verbalizations/Mental Status: []Eye contact is good. Motor activity is appropriate. Appearance is casual. Speech is Appropriate. Mood is anxious. Affect is congruent. Thoughts are linear and logical. No evidence of psychosis. Client Response/Progress/Benefit: [] Pt was an active participant in activity and taking notes during group discussion. Attentive during psychoeducation and interactive discussion on coping skills included why people use unhealthy skills. Group came up with list of unhealthy coping skills and pt identified personal ones as lashing out, shutting down, and avoidance. Group discussed the effects of how unhealthy coping skills can impact mental health in a negative way. Participated during experiential activity and was able to relate the activity to group topic regarding the benefits of developing strong internal and external support system. Benefited from increased understanding of unhealthy coping skills and the need for developing healthy internal and external coping skills. Pt will continue IOP tx to improve distress tolerance, increase healthy coping skills, and prevent decompensation.
--- NOTE | 2024-03-07 11:15 | BH.SGPN.GN ---
Behaviors/Verbalizations/Mental Status: []Pt alert and oriented, casually dressed and groomed. Eye contact good. Motor activity appropriate. Speech within normal limits. Affect congruent, mood depressed and anxious. Thoughts linear, logical, no signs of hallucinations or delusions. Client Response/Progress/Benefit: [] Pt responded well to session, taking notes and contributing when prompted. Group discussed the different categories of coping skills which included distraction, emotional release, grounding, self-love, and thought challenging. Pt participated in creating a coping skills ?menu? from the five categories of coping skills. Pt's coping skill menu included: exercise, going for a drive, gratitude practice, 5-senses, boundary setting, and decisional balance tool. Appeared to benefit from increasing repertoire of healthy coping skills. Will continue IOP to improve view of self, establish heathy boundaries, challenge distortions, and prevent decompensation. Narrative Note: []
--- NOTE | 2024-03-09 09:01 | BH.SGPN.GN ---
Behaviors/Verbalizations/Mental Status: [] Eye contact is good. Motor activity is restless. Appearance is casual. Speech is Appropriate. Mood anxious. Affect is congruent. Thoughts are linear and logical. No evidence of psychosis. Reviewed daily check in sheet and no reports of suicidal ideations or intent. Client Response/Progress/Benefit: [] Pt was an active participant in group discussions. Attentive. Per daily symptom tracker client reports a 0/5 for depression, 3/5 for anxiety, and a 3/5 for agitation. Client stated mental health positive as starting to take back control over her responses to situations. Client reported additional positive as moving belongings from her grandma's house. Client reported current stressor as feeling like she is internally shaking. Client stated she was told this was a side effect to one of her medications and was told to stop take that medication. Client expressed concern about her mood stability since having to stop that medication. Client will see [facility] psychiatrist today. Benefited from group support, encouragement, and feedback. Will continue in [facility] to improve view of self, increase boundary setting, and prevent decompensation.
--- NOTE | 2024-03-09 10:10 | BH.SGPN.GN ---
Behaviors/Verbalizations/Mental Status: [] Eye contact is good. Motor activity is appropriate. Appearance is casual. Speech is Appropriate. Mood is agitated and depressed. Affect is congruent. Thoughts are linear and logical. No evidence of psychosis Client Response/Progress/Benefit: [] Client was an active participant during interactive group discussions. Attentive during psychoeducation on the six types of boundaries (physical, emotional, intellectual, sexual, time, and material) AEB note-taking and input in group discussions. Along with peers contributed to interactive discussion on defining what a boundary is in mental health. Client along with peers identified challenges to setting boundaries which included; fear of conflict, being uncomfortable, believing they are being rude or mean, etc. Reports struggling with fear of retaliation or not knowing how. Client along with peers identified the benefits to setting boundaries such as healthier relationships, stronger sense of self, and improved confidence. Client benefited from increased awareness and insight on the importance/benefit to setting health boundaries. Will continue in IOP to prevent decompensation, increase healthy coping skills and boundaries, and improve functioning. Narrative Note: []
--- NOTE | 2024-03-09 11:15 | BH.SGPN.GN ---
Behaviors/Verbalizations/Mental Status: [] Eye contact is good. Motor activity is appropriate. Appearance is casual. Speech is Appropriate. Mood is anxious. Affect is congruent. Thoughts are linear and logical. No evidence of psychosis. Client Response/Progress/Benefit: []Pt responded well to session AEB listening attentively to peers, providing some input, as well as taking notes throughout. Pt contributed throughout psychoeducation on different boundary setting styles. Participated in group discussion brainstorming various strategies for improving healthy boundary settings. Pt reported wanting to work on making a pros and cons list and using ?no? as a complete sentence to set healthier boundaries in her life. ?Seemed to benefit from increased awareness of how different boundary styles can impact mental health. Will continue IOP tx to increase healthy coping, improve view of self, and prevent decompensation. Narrative Note: []
--- NOTE | 2024-03-09 11:42 | PCM.BH.PN ---
Progress Note Progress Note: History of Present Illness/Interim History: The patient is a 28-year-old engaged female with a history of depression, panic attacks and emotional dysregulation who is seen in follow-up at the [facility] behavioral health IOP. I last saw the patient 9 days ago and at that time the patient was started on Abilify 2 mg p.o. daily and trazodone 50 mg to take 1-2 at bedtime and hydroxyzine as needed for panic attacks and anxiety. The patient started the Abilify but developed what appears to be and feeling of anxiety and tremors and side so this was discontinued by her outpatient provider yesterday. The patient agrees to stay off of this medication. She continues to have the ongoing stressor with her fianc? of 9 years who has been involved with her sisters 1 of whom lives with her. She feels that she is benefiting from the program and learning valuable skills to help with her mental health issues. Her energy has been better lately because she is sleeping better with the trazodone and feels more rested. She is getting about 7 or 8 hours of sleep at night now. She remains somewhat depressed with occasional passive thoughts of but denies suicidal ideation, plan for suicide, homicidal ideation, hallucinations, delusions or symptoms of hypomania or kenneth. Current Psychiatric Medications: [] Abilify 2 mg p.o. daily (x 7 or 8 days and discontinued yesterday due to side effects); trazodone 50 to 100 mg at bedtime as needed for sleep; hydroxyzine 25 mg p.o. daily up to 3 times a day for panic attacks and anxiety. Mental Status Examination: [] The patient is a 28-year-old female who is overweight but appears normal for stated age and has an upper lip piercing. She has no psychomotor agitation or retardation and is ambulatory with a normal gait. She is cooperative during the interview with good eye contact and speech is normal rate and rhythm and fluent with no pressure. Mood is depressed and anxious. Affect is full and normal. Thought process is goal-directed and organized. Thought content: There is evidence of occasional passive thoughts of . There is no evidence of suicidal ideation, plan for suicide, homicidal ideation, hallucinations or delusions or current symptoms of kenneth. Reality testing is intact. Judgment is intact. Insight: Limited but some present. Diagnoses: [] 1. Bipolar 2 disorder 2. Panic disorder 3. History of PTSD 4. Cluster B traits 5. Primary support issues Plan: [] The patient will continue the IOP and behavioral health at [facility] as the structure, support, education and group therapy will hopefully prevent worsening of the patient's symptoms which could require hospitalization. She felt safe during the interview and if it anytime she does not feel safe she agrees to let us know or go to the emergency room. She agrees to stay off Abilify due to the side effects of feeling tremulous. She will continue her other medication as ordered and agrees to try Latuda 20 mg p.o. daily in the evening with dinner. She understands it must be taken with food in order to be absorbed. The risk, options, possible complications and side effects of the medications were again discussed with the patient and she understands and accepts these. Prescription is sent in for Latuda. I will see the patient in follow-up in 2 weeks and she will continue to follow-up with her outpatient providers.
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
--- NOTE | 2024-03-11 10:15 | BH.SGPN.GN ---
Behaviors/Verbalizations/Mental Status: [] Eye contact is good. Motor activity is appropriate. Appearance is casual. Speech is Appropriate. Mood is depressed and irritable. Affect is congruent. Thoughts are linear and logical. No evidence of psychosis. Client Response/Progress/Benefit: [] Attentive and engaged throughout the group discussions. Attentive during psychoeducation on the 4 communication styles (Passive, Passive-Aggressive, Aggressive, and Assertive) and the obstacles to effective communication. Attentive during interactive discussion on the benefits of communicating effectively, as well as the benefits and disadvantages to the different communication styles. Reports connecting most with passive and aggressive styles, noting that she often is passive until tension builds to the point of aggressive. Benefited from increased understanding of communication styles and how these can impact effective communication. Will continue in IOP to prevent decompensation, increase healthy coping, and improve functioning. Narrative Note: []
--- NOTE | 2024-03-11 11:15 | BH.SGPN.GN ---
Behaviors/Verbalizations/Mental Status: []Pt alert and oriented, casually dressed. Eye contact good. Motor activity appropriate. Speech within normal limits. Affect congruent, mood depressed, agitated, anxious. Thoughts linear, logical, no signs of hallucinations or delusions. Client Response/Progress/Benefit: [] Pt responded well to session AEB Pt listening attentively to others and providing input during group discussion on the pay offs and costs of the different communication styles. Pt able to connect how current communication style impacts mental health. Connected with peers? comments about importance of using assertive communication. Pt did well being assertive in the group activity and worked with group to identify potential skills for improving communication skills. Pt seemed to benefit from increasing awareness of healthy strategies to improve communication and identified wanting to work on improving her ability to better express herself and her emotions without allowing her emotions to take control. Will continue IOP tx to prevent decompensation, gain distress tolerance skills, and improve daily functioning. Narrative Note: []
--- NOTE | 2024-04-06 10:22 | BH.MDN ---
Multi-Disciplinary Note Note 45-min Individual: Time Started:: 09:10 Date: 04/06/24 Purpose of session/treatment goals addressed:: Purpose of session was to address goals 1 and 2 from [facility]. Eye Contact:: Good Motor Activity:: Appropriate Appearance:: Casual Speech:: Appropriate Mood:: Euthymic Affect:: Congruent Thoughts:: Linear, Logical and No evidence of hallucinations/delusions noted Staff Interventions:: thought challenging, CBT techniques, discharge planning, strengths perspective, goal setting and taught coping skills Client Response:: Client reported she is feeling content today. Client reported she did have five good days with her fianc?, but reported two days ago started to back to constant arguing. Client stated she is a little more on edge because she ran out of cigarettes three days ago. Client reported she does have desire to not go back to smoking even when she has the money to buy cigarettes again. Client stated she is starting to become okay with possibility of not being in relationship. Client reported early on in the program she was fearful of not being with somebody but is starting to come around to the realization that she would be able to handle it and cope. Client stated she is still unsure what she is going to get relationship but does feel more confident that she will be okay and has the ability to create healthy connections even if she is not in a relationship. Client stated she can note progress with how she manages conflict, improved perspective, improve mind set, decrease depression, and improve daily functioning. Client reported she has done better with stepping away and taking a breath when starting to get angry so that she does not put her hands on her fianc?. Client recognizes not managing her anger effectively ends up hurting her more. Client therapist started discussion about continued discharge from [facility]. Client expressed feeling nervous about being done with the program. Versus client receptive to thought challenge by a therapist helping client see that she has made progress and is starting to feel more confident in her ability to manage her emotions and mood more effectively. Client agrees that her relationship has been chronically tumultuous and that is a decision that eventually she will have to make as to what she wants to do with it. Client able to recognize the negative impact chronic arguing and fighting has on her mental health but has not been ready to make a decision yet. Client agreeable to continue working on distress tolerance skills. Risks/Concerns:: Denies suicide ideation, plan, or intention. Future oriented. Progress Toward Goals/Plan:: Progress noted with client reporting improved mood, decreased depression, decreased reactivity and conflict, and starting to utilize healthy coping skills more consistently. Client continuing to have interpersonal relationship issues however per client this has been going on for majority of the 10-year relationship. Discussed discharging from [facility] in 2 weeks. Client expressed concern
== END 2024-03-13 23:59 ==
LOC: BHIOP 08:00
PROVIDERS: PCP Family Medicine; Referring Provider Psychiatry & Neurology Psychiatry; Visit Provider Psychiatry & Neurology Psychiatry
DX: F31.9 Bipolar disorder, unspecified (principal)
CPT/HCPCS: 99214; H2012; H2020; S9480; 90837

== ENCOUNTER 2024-03-14 07:16 | Outpatient (RCR) | payer MEDICAID, SELFPAY ==
[2024-03-14 00:25] VITALS: BP 145/90; PULSE 85
--- NOTE | 2024-03-14 09:00 | BH.SGPN.GN ---
Behaviors/Verbalizations/Mental Status: [] Eye contact is good. Motor activity is appropriate. Appearance is casual. Speech is Appropriate. Mood is depressed/irritable. Affect is congruent. Thoughts are linear and logical. No evidence of psychosis. Reviewed daily check in sheet and no reports of suicidal ideations or intent. Client Response/Progress/Benefit: [] Pt was an active participant in group discussion. Attentive. Daily symptom tracker notes 4/5 for anxiety and agitation as well as 2/5 for depression. Continued struggles with fiance and their relationship which is impacting progress. Shared that they has another argument last night. She reports feeling trapped in the relationship. I'm going to be sad forever. I just want to run away. According to patient she parked her car yesterday and just started crying. Peers provided support and feedback which was helpful. Pt reports that she is attempting to utilize skills during conflicts with fiance stating I was able to walk away last night. Limited progress due to unhealthy relationship. Will continue in IOP to prevent decompensation, stabilize mood, increase healthy coping, and improve functioning. Narrative Note: []
--- NOTE | 2024-03-14 11:10 | BH.SGPN.GN ---
Behaviors/Verbalizations/Mental Status: [] Pt alert and oriented, appropriate grooming/appearance. Eye contact good. Motor activity appropriate. Speech within normal limits. Affect congruent, mood euthymic. Thoughts linear, logical, no signs of hallucinations or delusions. Client Response/Progress/Benefit: [] Pt was an active participant in group discussions. Attentive during psychoeducation. In small group pt along with peers developed an active plan for their crisis warning signs. Pt identified three crisis warning signs as well as an action plan for each. One crisis warning sign was rapid mood changes. Pt identified coping skills to help with this such as: prioritize self care, breathing, and grounding techniques. Benefited from increased awareness of crisis warning signs and by developing crisis intervention strategies. Will continue in IOP to prevent decompensation and improve daily functioning. Narrative Note: []
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
--- NOTE | 2024-03-16 09:05 | BH.SGPN.GN ---
Behaviors/Verbalizations/Mental Status: [] Eye contact is good. Motor activity is appropriate. Appearance is casual. Speech is Appropriate. Mood is depressed and irritable. Affect is congruent. Thoughts are linear and logical. No evidence of psychosis. Reviewed daily check in sheet and no reports of suicidal ideations or intent. Client Response/Progress/Benefit: [] Pt was an active participant in group discussions however shared very little about herself. Attentive. Daily symptom tracker notes 4/5 for anxiety and 3/5 for depression/irritability. States that she is struggling with ?life issues? which she hints are related to her relationship with her fianc?. She strained her ankle last night which has caused increased irritability. ? I guess a win is that I made it here today?. Limited progress noted. Benefited from group support, encouragement, and feedback. Will continue in IOP to prevent decompensation, stabilize mood, and increase healthy coping skills. Narrative Note: []
--- NOTE | 2024-03-16 10:10 | BH.SGPN.GN ---
Behaviors/Verbalizations/Mental Status: [] Eye contact is good. Motor activity is appropriate. Appearance is casual. Speech is Appropriate. Mood is anxious. Affect is congruent. Thoughts are linear and logical. No evidence of psychosis. Client Response/Progress/Benefit: [] Pt receptive to session AEB contributing to small group discussion, as well as listening attentively to others, and taking notes. Worked with group to brainstorm the positive and negative aspects of stress on physical and mental health as well as the impact of distress on performance, relationships, and mental health. Pt shared her top stressors to be: keeping up with chores, relationship issues, and trust issues. Shared when feeling overwhelmed with stress she tends to lash out, isolate, and disconnect from others. Benefited from increased awareness of positive and negative stress as well as how stress impact individuals. Will continue in IOP to improve distress tolerance, improve view of self, and prevent decompensation.
--- NOTE | 2024-03-16 11:10 | BH.SGPN.GN ---
Behaviors/Verbalizations/Mental Status: []Pt alert and oriented, casually dressed and groomed. Eye contact good. Motor activity appropriate. Speech within normal limits. Affect congruent, mood content, agitated. Thoughts linear, logical, no signs of hallucinations or delusions. Client Response/Progress/Benefit: [] Pt was an attentive and active participant in group discussions and experiential activity, doing well to regulate their emotions throughout the activity and work with peers. Attentive during psychoeducation on the 4 A's (Avoid, adapt, alter, accept) of coping with stress. Shared that they would benefit most from altering her expectations of herself and work towards accepting what is within her control and what is not regarding her current stressors. Was able to identify the connection between the experiential activity and utilization of stress management skills. Benefited from increased awareness of stress management strategies. Pt will continue IOP tx to prevent decompensation, improve daily functioning, and increase distress tolerance. Narrative Note: []
--- NOTE | 2024-03-21 09:05 | BH.SGPN.GN ---
Behaviors/Verbalizations/Mental Status: [] Eye contact fair to good. Motor activity appropriate. Speech within normal limits. Affect congruent, mood agitated and anxious. Thoughts linear, logical, no signs of hallucinations or delusions. Reviewed client?s symptom tracker, denies SI, plan, or intent as of 03/21/2024. Client Response/Progress/Benefit: [] Client receptive of session, attentive and willing to process with group. Reports sx of anxiety ?(3/5), agitation (2/5), and depression (1/5) per daily sx tracker. ?Identified mental health ?wins? as leaving her current home environment when becoming overwhelmed and recognizing she was beginning to have dark thoughts. Shared staying the night at her mother's house instead which she found beneficial as she was able to have time to think to herself. Reports her home environment and relationships are her primary stressor. Discussed feeling trapped due to obligation to her kids and guilt about leaving their father, but recognizes the current state of things is unhealthy and unsustainable. Despite insight into the mental health impacts of her current relationship and home environment, pt struggles with identifying and implementing healthy means of coping or realistic changes within her control to improve the home environment or begin to facilitate change. Pt reports feeling stuck and depressed by this. Receptive of encouragement and support from the group, though unable to identify one skill she could use to cope today. Recommended continued IOP tx to further improve mood stability, promote skill building and application, as well as prevent decompensation. Narrative Note: []
--- NOTE | 2024-03-21 10:11 | BH.SGPN.GN ---
Behaviors/Verbalizations/Mental Status: [] Pt alert and oriented, casually dressed and groomed. Eye contact good. Motor activity appropriate. Speech within normal limits. Affect full, mood euthymic. Thoughts linear, logical, no signs of hallucinations or delusions. Client Response/Progress/Benefit: [] Pt participated in group discussion. Group worked together to identify benefits of healthy relationships which included encouragement, motivation, accountability, connectedness and minimized stress. Group identified factors that lead to unhealthy relationships which included low self esteem, trauma, lack of communication, parent's negative relationship growing up, and substance use. Benefited from increased insight and awareness of benefits of healthy relationships and factors that contribute to unhealthy relationships. Will continue in IOP to increase self worth, challenge negative thoughts, and prevent decompensation. Narrative Note: []
--- NOTE | 2024-03-21 11:11 | BH.SGPN.GN ---
Behaviors/Verbalizations/Mental Status: [] Pt alert and oriented, casually dressed and groomed. Eye contact fair. Motor activity appropriate. Speech within normal limits. Affect full, mood euthymic, Thoughts linear, logical, no signs of hallucinations or delusions Client Response/Progress/Benefit: [] Client responded well to session, engaged and taking notes throughout. Worked with group to connect components of the experiential activity with characteristics of healthy and unhealthy relationships. Attentive during psychoeducation about characteristics of healthy, unhealthy, and abusive relationships. Client reported she would like to continue to improve with communication and trust in relationship. Appeared to benefit from identifying current healthy relationship attributes and an area client wants to work on to build healthier relationships. Client to continue IOP to increase healthy coping skills, stabilize mood, and prevent decompensation. Narrative Note: []
--- NOTE | 2024-03-22 09:05 | BH.SGPN.GN ---
Behaviors/Verbalizations/Mental Status: [] Eye contact is good. Motor activity is appropriate. Appearance is disheveled. Speech is Appropriate. Mood is depressed/irritable. Affect is congruent. Thoughts are linear and logical. No evidence of psychosis. Reviewed daily check in sheet and no reports of suicidal ideations or intent. Client Response/Progress/Benefit: [] Pt was an active participant in group discussions. Attentive. Pt states ? I want to end my relationship?. She shared her relationship struggles which she believes are significantly impacting her mental health, her self-esteem, and her overall quality of life. Ongoing difficulties for the past 10 years which frequent verbal conflicts. She states that she has not been single ? my whole life?. ? I don?t even know who I am?. She has been staying the past 2 days with her mother. ? I?ve had the best sleep?. Difficulty taking action or making decision regarding her marriage due to fear of loneliness. ? I have no friends?. Benefited from group support, encouragement, and feedback. Will continue in IOP to prevent decompensation, stabilize mood, and increase healthy coping. Narrative Note: []
--- NOTE | 2024-03-22 10:20 | BH.SGPN.GN ---
Behaviors/Verbalizations/Mental Status: []Pt alert and oriented, casually dressed and groomed. Eye contact fair. Motor activity appropriate. Speech within normal limits. Affect congruent, mood anxious. Thoughts linear, logical, no signs of hallucinations or delusions. Client Response/Progress/Benefit: [] Pt responded well to session, contributing to discussion, and engaged during the activity. Group identified the benefits of change which included: increased confidence, improving mental health, and making progress. Worked with the group to identify barriers to change, which included: uncomfortable emotions such as anxiety and fear, lack of energy, worried about what others will think, and fear of the unknown. Pt participated along with group in activity where they identified and discussed the emotions related to change. Pt connected with peers that one can have many conflicting emotions when faced with change. Benefited from increased awareness and understanding of emotions, benefits, and barriers related to change. Will continue IOP tx to improve distress tolerance, increase confidence, and prevent decompensation.
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
--- NOTE | 2024-03-25 11:10 | BH.SGPN.GN ---
Behaviors/Verbalizations/Mental Status: []Pt alert and oriented, casually dressed and groomed. Eye contact good. Motor activity appropriate. Speech within normal limits. Affect congruent, mood depressed and agitated. Thoughts linear, logical, no signs of hallucinations or delusions. Client Response/Progress/Benefit: [] Pt responded well to session AEB taking notes and contributing to discussion throughout. Pt engaged as group continued discussion on acceptance and the mental health benefits of practicing acceptance. Pt and peers identified what makes acceptance challenging and pt completed a self-reflection exercise on what is hard to accept in pt's life. Pt identified what is hard to accept in her life and how it makes things harder when pt resists acceptance. Group identified strategies to increase acceptance and pt wants to work on reminding herself that ?I can only control myself. I can?t control anyone else?s behaviors.? Pt appeared to benefit from gaining insight and learning strategies to increase acceptance. Pt will continue IOP tx to prevent decompensation, improve daily functioning, and gain self-compassion. Narrative Note: []
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
--- NOTE | 2024-03-28 10:10 | BH.SGPN.GN ---
Behaviors/Verbalizations/Mental Status: []Pt alert and oriented, casually dressed and groomed. Eye contact good. Motor activity appropriate. Speech within normal limits. Affect congruent, mood, anxious. Thoughts linear, logical, no signs of hallucinations or delusions. Client Response/Progress/Benefit: [] Pt connected with topic of anxiety and participated throughout, providing input and taking notes. Participated throughout interactive discussion defining anxiety and identifying cognitive and physiological symptoms of anxiety. Group discussed how anxiety can prevent them from trying new things. Pt identified their physical signs of anxiety as: shaking, headaches, tingly hands, and shaky legs. Pt identified safety behaviors as: avoidance, running away, and sleeping. Benefited from increased awareness and insight on anxiety and its impact. Pt will continue IOP tx to improve emotion regulation, challenge distortions, and prevent decompensation.
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
--- NOTE | 2024-03-30 09:00 | BH.SGPN.GN ---
Behaviors/Verbalizations/Mental Status: [] Pt alert and oriented, disheveled appearance. Eye contact good. Motor activity appropriate. Speech within normal limits. Affect congruent, mood angry.. Thoughts linear, logical, no signs of hallucinations or delusions. Reviewed pt?s symptom tracker, no risk for suicidal ideation, plan, or intent 03/30/24 Client Response/Progress/Benefit: []Pt responded well to session, attentive and engaged. Pt reports feeling raged this morning and pt appeared visibly agitated. Pt did not go into detail about what is triggering her rage, but pt shared it has to do with her relationship. Pt's relationship has been a major trigger for pt's mood instability since IOP admission. Pt's mental health win today was using opposite action and showing up for IOP when she really wanted to cancel. Pt appeared to benefit from reflecting on progress and connecting with peers. Pt will continue IOP tx to prevent decompensation, improve daily functioning, and increase emotional regulation skills. Narrative Note: []
--- NOTE | 2024-03-30 11:15 | BH.SGPN.GN ---
Behaviors/Verbalizations/Mental Status: []Pt alert and oriented, casually dressed and groomed. Eye contact good. Motor activity appropriate. Speech within normal limits. Affect congruent, mood depressed and agitated. Thoughts linear, logical, no signs of hallucinations or delusions. Client Response/Progress/Benefit: [] Pt responded well to session, participating in activity and small group discussion. Group reviewed the rest of the defense mechanisms and discussed how these are adaptive, maladaptive, or somewhere in the wild. Pt participated in the experiential activity which encouraged pts to draw a castle that portrayed their different defense mechanisms. Pt's defense mechanisms included suppression, anticipation, rationalization, and displacement. Pt shared she is working on managing displacement by trying to take more time for self-care and compassion. Pt listened to wood carver hand teach different skills to help pt?s cope with or change their defense mechanisms. Pt appeared to benefit from gaining insight to the different defense mechanisms and learning coping skills. Pt will continue IOP tx to promote mood stability, combat distortions and encourage boundary setting, and prevent decompensation. Narrative Note: [] Narrative Note: []
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
--- NOTE | 2024-04-01 09:05 | BH.SGPN.GN ---
Behaviors/Verbalizations/Mental Status: [] Eye contact is good. Motor activity is appropriate. Appearance is casual. Speech is Appropriate. Mood is anxious/irritable. Affect is congruent. Thoughts are linear and logical. No evidence of psychosis. Reviewed daily check in sheet and no reports of suicidal ideations or intent. Client Response/Progress/Benefit: [] Pt was an active participant in group discussion. Attentive. Daily symptom tracker notes 4/5 for anxiety and 3/5 for irritability. Pt shared that she stepped outside my comfort zone yesterday and attended a community event for kids. According to pt the event was very fun for her children as well as herself. The positive time appears to have brought the family closer. Pt reports having a long talk with her christophe. Overall the conversation was beneficial and both civil/assertive. Edgar is agreeable to entering marriage counseling. Pt is hopeful that long-standing concerns and unhealthy behaviors can be addressed and improved. Emotion for today is tired. Increase insight and awareness of the importance of attending fun events outside of house and her family. Benefited from group support, encouragement, and feedback. Will continue in IOP to prevent decompensation, stabilize mood, and increase healthy coping. Narrative Note: []
--- NOTE | 2024-04-01 10:15 | BH.SGPN.GN ---
Behaviors/Verbalizations/Mental Status: []Pt alert and oriented. disheveled appearance. Eye contact good. Motor activity appropriate. Speech within normal limits. Affect congruent, mood stressed. Thoughts linear, logical, no signs of hallucinations or delusions. Client Response/Progress/Benefit: [] Pt responded well to session AEB sharing and listening attentively to others. Group identified types of social support (family, pets, professionals, spiritual, etc) and provided examples of benefits of having social support, including: decreased stress, increased self-esteem, encouragement, distraction, etc. Pt also participated in group discussion regarding the barriers to accessing support which pt stated ?all my support is toxic.? Pt participated in experiential activity illustrating the impact communication, boundaries, and patience play in creating healthy support systems. Pt appeared to benefit from increased knowledge of the benefits of social support and greater self-awareness. Will continue IOP to promote use of healthy coping skills, gain support, and reduce negative thinking patterns. Narrative Note: []
--- NOTE | 2024-04-01 11:15 | BH.SGPN.GN ---
Behaviors/Verbalizations/Mental Status: []Pt alert and oriented, disheveled appearance. Eye contact good. Motor activity appropriate. Speech within normal limits. Affect congruent, mood irritable. Thoughts linear, logical, no signs of hallucinations or delusions. Client Response/Progress/Benefit: [] Pt was an active participant throughout AEB contributing to discussion, providing personal examples, and taking notes. Pt processed emotions felt in the activity and how they coped in the moment. Pt provided input during discussion on the types of support our supports can provide. Pt able to identify current support system and barriers that get in the way of using supports by drawing out their own support net. Pt reported after identifying what type of supports they receive; they gained awareness that they could benefit from getting more tangible and informational support. Pt plans to do this by exploring resources online. Pt seemed to benefit from identifying the type of support Pt needs to work on improving. Pt recommended to continue IOP tx to increase use of healthy coping skills, improve self-care, and increase healthy support. Narrative Note: []
--- NOTE | 2024-04-04 09:05 | BH.SGPN.GN ---
Behaviors/Verbalizations/Mental Status: [] Eye contact is good. Motor activity is appropriate. Appearance is casual. Speech is Appropriate. Mood is anxious and irritable. Affect is congruent. Thoughts are linear and logical. No evidence of psychosis. Reviewed daily check in sheet and no reports of suicidal ideations or intent. Client Response/Progress/Benefit: [] Pt was an active participant in group discussions. Attentive. Daily symptom tracker notes 5/5 for anxiety and irritability. Very brief and superficial check in this AM. Reports Struggling due to being out of cigarettes States that she doesn't have the money to get more. Increase irritability and mood swings. States I was just crying in the car. Focused entirely on cigarettes stating i can't think of any wins. She has no desire to stop nicotine use. Limited progress noted. She did report benefit from group as a means of distraction and support. Will continue in IOP to prevent decompensation, stabilize mood, and improve functioning. Narrative Note: []
--- NOTE | 2024-04-04 11:15 | BH.SGPN.GN ---
= Behaviors/Verbalizations/Mental Status: []Pt alert and oriented, casually dressed and groomed. Eye contact fair to good. Motor activity appropriate. Speech within normal limits. Affect congruent, mood depressed. Thoughts linear, logical, no signs of hallucinations or delusions. Client Response/Progress/Benefit: []Pt was attentive and contributed to group discussion. Pt worked with group to identify strategies that can help with challenging negative perspective. Pt completed strengths exploration worksheet, identifying love, kindness, and forgiveness as personal strengths. Pt able to acknowledge how these strengths are helping pt and can continue to help pt in mental health journey. Pt identified wanting to work on leaning on strength of kindness to begin practicing treating herself ?with kindness and working to improve self-talk and boundaries. Benefited from identifying personal strengths and strategies for enhancing use of identified strengths. Pt will continue IOP tx to increase coping skill repertoire, improve mood stability, and prevent decompensation. Narrative Note: []
--- NOTE | 2024-04-06 10:10 | BH.SGPN.GN ---
Behaviors/Verbalizations/Mental Status: [] Eye contact is good. Motor activity is appropriate. Appearance is casual. Speech is Appropriate. Mood is euthymic. Affect is congruent. Thoughts are linear and logical. No evidence of psychosis. Client Response/Progress/Benefit: [] Pt responded well to session AEB contributing to small group discussion, taking notes, and listening attentively to others. Group defined anger and discussed the benefits of managed anger and anger as a secondary emotion. Pt shared perspective on personal benefits of anger as advocating for self. Pt completed worksheet on anger triggers and personal warning signs of anger. Pt identified a common trigger for her is when people use her kindness and take advantage of her. Pt able to create her personal anger cycle. Appeared to benefit from increased knowledge of the anger cycle as well as personal triggers. Will continue IOP to improve emotion regulation, challenge distortions, and prevent decompensation.
--- NOTE | 2024-04-06 11:15 | BH.SGPN.GN ---
Behaviors/Verbalizations/Mental Status: []Client alert and oriented, casually dressed and groomed. Eye contact fair to good. Motor activity appropriate. Speech within normal limits. Affect congruent, mood content. Thoughts linear, logical, no signs of hallucinations or delusions. Client Response/Progress/Benefit: []Pt was engaged throughout AEB contributing to group discussion and activity. Group processed how they each responded to the intentionally difficult task they were asked to completed and described the physical and emotional anger cues experienced throughout, as well as strategies used for managing these frustrations. Pt contributed as group brainstormed healthy coping skills for better managing anger which included: music, walking/exercise, taking a break, healthy venting, avoiding unnecessary stressors, reflection, and journaling. Pt identified plans to work on using physical activity and journaling. Pt appeared to benefit from identifying different techniques to manage anger as well as gaining awareness of potential consequences of unmanaged anger. Pt to continue IOP to promote use of healthy coping skills, challenge distortions, and prevent decompensation. Narrative Note: []
--- NOTE | 2024-04-06 14:42 | BH.MDN_ITS ---
Multi-Disciplinary Note Note 45-min Individual: Time Started:: 09:10 Date: 04/06/24 Purpose of session/treatment goals addressed:: Purpose of session was to address goals 1 and 2 from [facility]. Eye Contact:: Good Motor Activity:: Appropriate Appearance:: Casual Speech:: Appropriate Mood:: Euthymic Affect:: Congruent Thoughts:: Linear, Logical and No evidence of hallucinations/delusions noted Staff Interventions:: thought challenging, CBT techniques, discharge planning, strengths perspective, goal setting and taught coping skills Client Response:: Client reported she is feeling content today. Client reported she did have five good days with her fianc?, but reported two days ago started to back to constant arguing. Client stated she is a little more on edge because she ran out of cigarettes three days ago. Client reported she does have desire to not go back to smoking even when she has the money to buy cigarettes again. Client stated she is starting to become okay with possibility of not being in relationship. Client reported early on in the program she was fearful of not being with somebody but is starting to come around to the realization that she would be able to handle it and cope. Client stated she is still unsure what she is going to get relationship but does feel more confident that she will be okay and has the ability to create healthy connections even if she is not in a relationship. Client stated she can note progress with how she manages conflict, improved perspective, improve mind set, decrease depression, and improve daily functioning. Client reported she has done better with stepping away and taking a breath when starting to get angry so that she does not put her hands on her fianc?. Client recognizes not managing her anger effectively ends up hurting her more. Client therapist started discussion about continued discharge from [facility]. Client expressed feeling nervous about being done with the program. Versus client receptive to thought challenge by a therapist helping client see that she has made progress and is starting to feel more confident in her ability to manage her emotions and mood more effectively. Client agrees that her relationship has been chronically tumultuous and that is a decision that eventually she will have to make as to what she wants to do with it. Client able to recognize the negative impact chronic arguing and fighting has on her mental health but has not been ready to make a decision yet. Client agreeable to continue working on distress tolerance skills. Risks/Concerns:: Denies suicide ideation, plan, or intention. Future neyda ented. Progress Toward Goals/Plan:: Progress noted with client reporting improved mood, decreased depression, decreased reactivity and conflict, and starting to utilize healthy coping skills more consistently. Client continuing to have interpersonal relationship issues however per client this has been going on for majority of the 10-year relationship. Discussed discharging from IOP in 2 weeks. Plan is for client to continue IOP to maintain gains, continue use of healthy coping skills, maintain boundaries, and prevent decompensation.
--- NOTE | 2024-04-08 09:00 | BH.SGPN.GN ---
Behaviors/Verbalizations/Mental Status: [] Pt alert and oriented,casually dressed.. Eye contact good. Motor activity appropriate. Speech within normal limits. Affect congruent, mood agitated, anxious. Thoughts linear, logical, no signs of hallucinations or delusions. Reviewed pt?s symptom tracker, no risk for suicidal ideation, plan, or intent 04/08/24 Client Response/Progress/Benefit: []Pt responded well to session, attentive and engaged. Pt reports feeling content but sick this morning which pt shared is a sick feeling about my boyfriend. Pt's biggest stressor since starting IOP has been her relationship and pt has been working on figuring out what she wants to do with this relationship. Pt reported her wins today as getting a lot of cleaning done around the house and continuing to show up for herself at [facility]. Pt appeared to benefit from reflecting on progress and connecting with peers. Pt will continue IOP tx to increase emotional regulation skills, reduce negative self-talk, and increase self-care practices. Narrative Note: []
--- NOTE | 2024-04-08 10:15 | BH.SGPN.GN ---
Behaviors/Verbalizations/Mental Status: []Patient was alert and oriented, casually dressed and groomed. Eye contact was good, motor activity normal, speech within normal limits. Affect congruent, mood content, anxious. Thoughts linear, logical, no signs of hallucinations or delusion Client Response/Progress/Benefit: []Pt participated in the group discussions AEB providing input and taking notes. Attentive during psychoeducation Goal Setting. Participated during the discussion on common barriers and pt identified some personal barriers as negative self-talk, limited support, and giving up when faced with a setback. Group also identified benefits of goals as sense of purpose, improved self-confidence, more motivation for other goals, and improved mental health. Benefited from increased awareness of mental health benefits of goals as well as psychoeducation on SMART goal criteria. Will continue in IOP to improve mood stability, promote healthy boundaries and distress tolerance skill application, and prevent decompensation. ? Narrative Note: []
--- NOTE | 2024-04-08 11:15 | BH.SGPN.GN ---
Behaviors/Verbalizations/Mental Status: []Pt alert and oriented, casually dressed and groomed. Eye contact good. Motor activity appropriate. Speech within normal limits. Affect congruent, mood euthymic. Thoughts linear, logical, no signs of hallucinations or delusions. Client Response/Progress/Benefit: [] Pt was engaged during discussion and willing to complete the worksheet challenging them to develop a personal SMART goal. Pt chose the goal of practicing self-love (bubble bath, face routine, journaling, listen to music, etc) for 5-15 minutes daily. Pt stated forgetting as a potential barrier. Identified solution as writing goal on a sticky note as a visual cue. Benefited from this group by developing a short-term SMART goal related to mental health. Will continue IOP tx to improve emotion regulation, increase consistent use of healthy coping skills, and prevent decompensation.
--- NOTE | 2024-04-11 09:05 | BH.SGPN.GN ---
Behaviors/Verbalizations/Mental Status: [] Eye contact is good. Motor activity is appropriate. Appearance is casual. Speech is Appropriate. Mood is depressed and irritable. Affect is congruent. Thoughts are linear and logical. No evidence of psychosis. Reviewed daily check in sheet and no reports of suicidal ideations or intent. Client Response/Progress/Benefit: [] Pt was an active participant in group discussion. Attentive. Daily symptom tracker notes 3/5 for anxiety and 2/5 for agitation. Notes her mood has generally been better since last week. Reports constant anxiety and nausea related to being in a relationship with her fiance. He makes me sick. The continue to argue and she is overall pessimistic that anything will change. According to pt she is utilizing skills mainly related to anger management. She is attempting to change negative communication patterns however little confidence that her fiance will change his behaviors. Pt has had awareness of unhealthy relationship for several weeks however as reserved herself to remain in the relationships due to limited support and resources. Unhealthy relationship is primary stressor and w/o addressing the relationship prognosis is poor for mental health. Benefioted from group support, encouragement, and feedback. Will continue in IOP to precent decompensation, stabilize mood, and increase healthy coping. Narrative Note: []
--- NOTE | 2024-04-11 10:15 | BH.SGPN.GN ---
Behaviors/Verbalizations/Mental Status: []Client alert and oriented, casually dressed and groomed. Eye contact good. Motor activity appropriate. Speech within normal limits. Affect congruent, mood agitated and anxious. Thoughts linear, logical, no signs of hallucinations or delusions. Client Response/Progress/Benefit: []Pt was an active participant, AEB taking notes and providing input in group discussions and activities. Attentive during psychoeducation. Pt engaged during interactive discussion in which the group defined self-care and discussed its benefits. Group discussed barriers to engaging in self-care. Group members together came up with guilt, time, urge to put others first, not knowing what to do for self-care, and perception that its unproductive as barriers to engage in self care. Pt stated their personal barrier is telling themselves ?there are other responsibilities I have.? Pt participated in small groups where they worked to identified and challenged common self-care ?myths?. Benefited from increased awareness of self-care, its benefits, and the consequences of not utilizing self-care strategies. Will continue IOP tx to prevent decompensation, increase distress tolerance skills, and combat distortions. Narrative Note: []
--- NOTE | 2024-04-11 15:51 | BH.MDN_ITS ---
Multi-Disciplinary Note Note 60-min Individual: Time Started:: 11:10 Date: 04/11/24 Purpose of session/treatment goals addressed:: Purpose session was to address goals 1 and 2 from [facility]. Eye Contact:: Good Motor Activity:: Restless Appearance:: Casual Speech:: Appropriate Mood:: Euthymic, Anxious and Other (Sad at times) Affect:: Congruent Thoughts:: Linear, Logical and No evidence of hallucinations/delusions noted Staff Interventions:: thought challenging, CBT techniques, mindfulness skills, discharge planning, strengths perspective and goal setting Client Response:: Client stated feeling anxious because she agreed to go to [place] with her fianc? and kids to stay at her fianc?'s brother's house. Client reported she agreed to go to the [facility] over the weekend of fianc? and kids. Client reported she is anxious about having to drive to [place] and also anxious about having to stay with her fianc?'s brother. Client shared her fianc?'s brother has communicated to her that he does not believe that they should be together. Client stated she has not spoken to him since this discussion so is nervous on how the weekend will go. Client stated she is also anxious of potentially having to drive home with her kids and leav ing her fianc? in [place] with his brother if they get into a big argument. Client expressed some frustration that over the weekend he texted her asking if she could reach out to a woman that they previously were in a polyamorous relationship with to see if the woman wanted to be friends with them again. Client stated she does not understand why he wants to potentially bring this woman back into their relationship when their current relationship not stable at the time. Client became tearful when thinking about how he would act very different when they were in the polyamorous relationship and he would treat the other woman very differently than how he treats her. Client stated he would also compare client to this other woman that the other woman takes care of him better. Client stated she did reach out to this woman and individual does not want to get back involved because it is too much stress. Client stated she is feeling anxious about having to tell her fianc? that this woman is no longer interested because she is afraid he is going to go off. Therapist and client problem solved on when and how client can communicate this information to him. Client could see that it is not healthy she feels unable to communicate with her fianc? honestly out of fear of his reaction. Client stated despite chronic stress with her relationship she does feel like her mental health has improved with improved mindset, improve daily functioning, and improving emotion regulation. Client stated she did have a setback last week during an argument she threw a laundry basket and punched a wall but stated in the past she would have put her hands on her fianc? so is happy she did not do that. Client open to trying to do some self care today and plans to communicate the information from the other woman to her fianc? tomorrow because she recognizes avoiding this situation will result in her feeling anxious the rest of the week. Risks/Concerns:: Denies suicidal ideation, plan, intention. Future oriented. Progress Toward Goals/Plan:: Progress variable as evidenced by client reporting difficulty with emotion regulation during an argument last week as evidenced by her reporting punching a wall and throwing a laundry basket. However per client this is progress because in the past she would have put her hands on her fianc?. Client still needs to continue to work on her distress tolerance in the moment especially when an argument with her fianc?. Client does note improved mindset, starting to feel more content and confident with potentially being on her own. Plan is for client to discharge from IOP next week. Client to continue IOP to reinforce utilization of healthy coping skills, challenge distortions, and prevent decompensation. Time Stopped:: 12:10
--- NOTE | 2024-04-12 09:05 | BH.SGPN.GN ---
Behaviors/Verbalizations/Mental Status: [] Eye contact is good. Motor activity is appropriate. Appearance is casual. Speech is Appropriate. Mood is depressed and irritable. Affect is congruent. Thoughts are linear and logical. No evidence of psychosis. Reviewed daily check in sheet and no reports of suicidal ideations or intent. Client Response/Progress/Benefit: [] Pt was an active participant in group discussions, however decline to shared or check-in when asked. Daily symptom tracker notes 5/5 for anxiety and 3/5 for irritability. She provided feedback, support, and encouragment to peers throughout the group. Gave feedback to peer on the beneficial aspects of journaling. Overall engaged in discussions with peers. Unclear on progress, stressors, or current emotion as pt did not share this AM. Will continue in IOP to prevent decompensation, stabilize mood, and increase healthy coping skills. Narrative Note: []
--- NOTE | 2024-04-12 10:10 | BH.SGPN.GN ---
Behaviors/Verbalizations/Mental Status: []Pt alert and oriented, casually dressed and groomed. Eye contact good. Motor activity appropriate. Speech within normal limits. Affect congruent, mood depressed and irritable. Thoughts linear, logical, no signs of hallucinations or delusions. Client Response/Progress/Benefit: []Pt was an active participant in group discussion and activity. Attentive during psychoeducation. Along with peers, pt was able to identify barriers to taking action in their life. Identified several symptoms and stressors that pt feels are holding them back from progress such as poor boundaries, anxiety, and fear of being alone. Stated these things have kept pt from loving herself and leaving toxic environments. Pt shared that she wants to begin addressing anxiety. Benefited from increased self-awareness of obstacles. Will continue IOP tx to prevent decompensation, improve boundary setting, and promote mood stability. Narrative Note: []
--- NOTE | 2024-04-12 11:10 | BH.SGPN.GN ---
Behaviors/Verbalizations/Mental Status: []Pt alert and oriented, casually dressed and groomed. Eye contact fair. Motor activity appropriate. Speech within normal limits. Affect congruent, mood euthymic. Thoughts linear, logical, no signs of hallucinations or delusions. Client Response/Progress/Benefit: []Pt responded well to session, taking notes and participating in worksheet discussion. Pt connected with the discussion on motion vs action steps, and this helped pt learn how to set goals differently. Pt set a goal to decrease anxious avoidance. Pt identified motion steps including identifying boundaries want to set, spending time alone, and positive self-talk. Pt also made action steps which included do one self-care activity daily, belly breathing daily, and talking about feelings to support. Appeared to benefit from identifying a small goal to benefit mental health. Client to continue IOP to challenge distortions, increase consistent use of skills, and prevent decompensation.
== END 2024-04-13 23:59 ==
LOC: BHIOP 07:16
PROVIDERS: PCP Family Medicine; Referring Provider Psychiatry & Neurology Psychiatry; Visit Provider Psychiatry & Neurology Psychiatry
DX: F31.81 Bipolar II disorder (principal); F41.0 Panic disorder [episodic paroxysmal anxiety]; F43.10 Post-traumatic stress disorder, unspecified; Z79.899 Other long term (current) drug therapy
CPT/HCPCS: 99214; H2012; H2020; S9480; 90834; 90837

== ENCOUNTER 2024-03-15 08:49 | Emergency (ER) | payer MEDICAID, SELFPAY ==
[2024-03-15 08:49] VITALS: BP 120/76; PULSE 91; RESP 14; TEMP 35.7; O2SAT 100
[2024-03-15 08:51] VITALS: BMI 42.4
--- NOTE | 2024-03-15 09:12 | RAD_ITS ---
STUDY: X-RAY - LEFT FOOT CLINICAL: Female, 28 years old. Injury. Pain. TECHNIQUE: 3 view(s) of the foot. COMPARISON: None. FINDINGS: Normal talus, calcaneus, and tarsal bones. Normal visualized subtalar, talonavicular, calcaneocuboid, tarsal and tarsometatarsal articulations. Normal metatarsi. Normal metatarsophalangeal joint of the great toe. Normal tibial and fibular sesamoid bones. Normal interphalangeal joint of the great toe. Normal phalanges of the great toe. Normal second through fifth metatarsophalangeal joints. Normal interphalangeal joints and phalanges of the lesser toes. The soft tissue structures are normal. RAD/Foot min 3 Views IMPRESSION: Normal x-ray examination of the foot. Electronically Signed: Jamir Presley MD at 9:36 EDT ,
--- NOTE | 2024-03-15 09:12 | RAD_ITS ---
STUDY: X-RAY - LEFT ANKLE REASON FOR EXAM: Female, 28 years old. Injury. Pain. TECHNIQUE: 3 view(s) of the ankle. COMPARISON: None. FINDINGS: Normal visualized distal tibia and fibula. Normal medial and lateral malleoli. Normal tibiotalar articulation and ankle mortise. Normal visualized talus and calcaneus. The visualized subtalar, talonavicular, calcaneocuboid and tarsal articulations are normal. The soft tissue structures are normal. RAD/Ankle min 3 Views IMPRESSION: Normal x-ray examination of the ankle. Electronically Signed: Jamir Presley MD at 9:37 EDT ,
--- NOTE | 2024-03-15 09:12 | RAD_ITS ---
STUDY: X-RAY - RIGHT KNEE REASON FOR EXAM: Female, 28 years old. Injury. Pain. TECHNIQUE: 4 view(s) of the knee. COMPARISON: None. FINDINGS: Normal visualized distal femur. Normal visualized proximal tibia and fibula. Normal proximal tibiofibular articulation. Normal medial femorotibial compartment. Normal lateral femorotibial compartment. Normal patellofemoral articulation. The soft tissue structures are normal. RAD/Knee 4 or More Views IMPRESSION: Normal x-ray examination of the knee. Electronically Signed: Jamir Presley MD at 9:38 EDT ,
--- NOTE | 2024-03-15 09:13 | ED.VIS.LOWEX ---
HPI History of Present Illness Chief Complaint: Lower Extremity Injury Informant: patient Narrative Narrative: Patient 28-year-old female with history of multiple sprains in her left ankle presenting with evaluation for injuries after fall. Last night around 9:30 PM she tripped over a baby gate. This caused her to injure her left ankle just landed on her right knee and her right shoulder. She states that she is moving her shoulder around pop but that just feels more sore. She is having significant pain over her right kneecap and the worst pain is in her left ankle with associated swelling. She took ibuprofen with no relief. She was not able to sleep last night but could not get to the emergency room until this morning. Has some tingling at the base of her left foot but no numbness. Is not on any blood thinners. Denies a loss of consciousness. No other injuries reported. No other complaints or concerns reported at this time. Reports history of hysterectomy so is not concerned for . [facility] Medical History (Updated 03/16/24 @ 08:28 by Rosalina Noel) History of posttraumatic stress disorder (PTSD) Bipolar 2 disorder Wears glasses Depression Back pain Migraine headache Smoker Intramural uterine fibroid Chronic pelvic pain in female Anxiety Panic disorder Anxiety with depression ALVARO III (cervical intraepithelial neoplasia grade III) with severe dysplasia Asthma Home Medications ?Medication ?Instructions ?Recorded ?Last Taken ?Type albuterol sulfate 90 mcg/actuation 1 - 2 puff inhalation PRN PRN 07/04/21 Unknown History aerosol inhaler ASTHMA hydroxyzine pamoate 25 mg capsule 25 mg PO QHS 30 days #90 caps 02/29/24 Unknown Rx (Vistaril) trazodone 50 mg tablet 50 mg PO QHS 30 days #30 tabs 02/29/24 Unknown Rx lurasidone 20 mg tablet (Latuda) 20 mg PO QPM 30 days #30 tabs 03/09/24 Unknown Rx hydrocodone-acetaminophen 5-325mg 1 tab PO Q8H PRN Pain 3 days #10 03/15/24 Unknown Rx 5mg-325mg TABLETS ibuprofen 600 mg tablet 600 mg PO Q6H PRN PRN pain #20 03/15/24 Unknown Rx TABLETS Allergy/AdvReac Type Severity Reaction Status Date / Time Latex, Natural Rubber Allergy Rash Verified 03/15/24 08:49 Family History Aunt Diabetes Grandmother CVA (cerebral vascular accident) Cancer Hypertension Thyroid disorder Grandfather Diabetes CVA (cerebral vascular accident) Mother Hypertension Depression Bipolar 1 disorder Sister Hypertension Asthma Depression Bipolar 1 disorder Thyroid disorder Surgical History History of hysterectomy Hx of section History of tonsillectomy and adenoidectomy Status post colposcopy (~02/16/18) Social History Smoking Status: Current every day smoker tobacco type: cigarettes alcohol intake: never substance use type: does not use caffeine: No what type of physical activity do you participate in: none seatbelt use: sometimes do you feel safe at home: Yes additional social history: Single-Patient is unemployed ROS ROS ED Constitutional Constitutional ED: Denies chills or fever(s) Gastrointestinal Gastrointestinal: Denies vomiting Musculoskeletal Musculoskeletal: Reports other Details: right knee pain, left ankle pain Integumentary Denies rash Neurologic Neurologic: Reports paresthesias LLE (bottom of left foot ) Hematologic/Lymphatic Hematologic/Lymphatic: Denies easy bleeding or easy bruising EXAM Physical Exam Const Vital Signs: 03/15/24 08:49 Temperature 96.3 F L Temperature Source Temporal Pulse Rate 91 Respiratory Rate 14 Blood Pressure 120/76 Blood Pressure Mean 90 Pulse Ox 100 Oxygen Delivery Method Room Air Positive well nourished and well developed General Appearance ED: well developed and NAD Eyes PERRL Chest Wall inspection of chest normal and palpation of chest normal Resp normal respiratory effort and clear to auscultation bilaterally Cardio regular rate and regular rhythm Cardio Narrative: 2+ DP pulses Extremity Extremity Narrative: Upper extremities?normal range of motion. No pinpoint bony tenderness. Right lower extremity?no deformity. Tenderness palpation over the right patella. There is an overlying very superficial abrasion. No joint effusion is appreciated. Normal extensor mechanism of the leg. No other bony tenderness deformity. Normal range of motion of the knee but painful and worse with direct palpation of the patella. Left lower extremity?no deformity with there is soft tissue swelling over the lateral aspect of the ankle. There is palpation of bilateral malleoli of the ankle. Mild tenderness palpation of the fifth metatarsal head. No deformity of the foot appreciated. No rotational deformity of the lower extremities bilaterally. Neuro oriented x3, moves all extremities and no sensory deficits noted Sensorium / Orientation: alert Psych Mood & Affect: anxious Skin no wounds Rashes: no rashes MDM MDM MDM Narrative Medical decision making narrative: Patient evaluated for pain associated with fall/injuries from last night. Will obtain x-ray of the left ankle and right knee. Given dose of IM morphine for pain control she is already taking NSAIDs with no relief. Differential includes right patellar fracture, right knee contusion, left ankle sprain, left ankle fracture, left foot fracture. She has normal range of motion of her shoulder with no significant tenderness I do not think she requires imaging I do not suspect dislocation or fracture. X-rays reviewed by myself as well as radiology do not show any acute dislocation or fracture. Patient be given an Aircast and crutches. Will be put on short course Motrin 600 mg as well as Truxton for further pain control. Given outpatient referral for podiatry for follow-up. Given return precautions. Discharged home in stable condition. Radiography Diagnostic Testing: Clinical Impression(s) from Imaging Studies Ankle X-Ray 03/15/24 09:12 IMPRESSION: Normal x-ray examination of the ankle. Electronically Signed: Jamir Presley MD at 9:37 EDT Reading Location ID and State: [facility] / [place] , Service support , Foot X-Ray 03/15/24 09:12 IMPRESSION: Normal x-ray examination of the foot. Electronically Signed: Jamir Presley MD at 9:36 EDT Reading Location ID and State: [facility] / [place] , Service support , Knee X-Ray 03/15/24 09:12 IMPRESSION: Normal x-ray examination of the knee. Electronically Signed: Jamir Presley MD at 9:38 EDT , Discharge Plan Triage Chief Complaint: Lower Extremity Injury ED Provider: Shanell Amos Dx/Rx/DC Orders Clinical Impression: Contusion of right knee, initial encounter, Left ankle sprain Instructions: ED Sprain Ankle W X Ray, ED Crutch Walking Prescriptions: New hydrocodone-acetaminophen 5-325 mg tablet 1 tab PO Q8H PRN (Reason: Pain) 3 Days Qty: 10 0RF ibuprofen 600 mg tablet 600 mg PO Q6H PRN PRN (Reason: pain) Qty: 20 0RF No Action albuterol sulfate 90 mcg/actuation HFA aerosol inhaler 1 - 2 puff INHALATION PRN PRN (Reason: ASTHMA) Patient Comments: inhale 2 puffs by mouth and INTO THE LUNGS every 4 hours if needed trazodone 50 mg tablet 50 mg PO QHS 30 Days Qty: 30 0RF hydroxyzine pamoate [Vistaril] 25 mg capsule 25 mg PO QHS 30 Days Qty: 90 0RF Rx Instructions: 1 po prn panic attack up to tid lurasidone [Latuda] 20 mg tablet 20 mg PO QPM 30 Days Qty: 30 0RF Rx Instructions: must administer with food (at least 350 calories) Primary Care Provider: Vj Robles Referrals: Emeka Miranda DPM [Med Staff - Active Staff] - As Needed Vj Robles MD [[facility]] - Print Language: Kazakh Disposition Disposition: Home, Self Care Discharge Date/Time: 03/15/24 10:55
[2024-03-15] MEDS: morphine 8 MG/ML Syringe 6 MG IM (09:19)
== END 2024-03-15 10:55 | disposition home or self-care (01) ==
PROVIDERS: Emergency Provider Emergency Medicine; PCP Family Medicine; Visit Provider Emergency Medicine
DX: S80.01XA Contusion of right knee, initial encounter (principal); F17.210 Nicotine dependence, cigarettes, uncomplicated; W19.XXXA Unspecified fall, initial encounter
CPT/HCPCS: 73564; 73610; 73630; 96372; 99283

== ENCOUNTER 2024-04-14 07:14 | Outpatient (RCR) | payer MEDICAID, SELFPAY ==
[2024-04-14 00:40] VITALS: BP 145/90; PULSE 85
--- NOTE | 2024-04-15 09:05 | BH.SGPN.GN ---
Behaviors/Verbalizations/Mental Status: [] Pt alert and oriented, neatly dressed and groomed. Eye contact good. Motor activity appropriate. Speech within normal limits. Affect congruent, mood euthymic. Thoughts linear, logical, no signs of hallucinations or delusions. Reviewed pt?s symptom tracker, no risk for suicidal ideation, plan, or intent 04/15/24 Client Response/Progress/Benefit: []Pt responded well to session, attentive and engaged. Pt reports feeling content this morning and shared she feels so much better after taking a self-care day yesterday. Pt shared she has been trying to focus more on herself and being in IOP tx has helped pt see that she is worthy of more in life. Pt shared she set some boundaries with her boyfriend regarding the upcoming weekend and pt shared she is still terrified but she is feeling more ready than before that she needs to leave this relationship. Pt's stressor today is still everything in my life. Pt appeared to benefit from reflecting on progress and connecting with peers. Pt will continue IOP tx to promote mood stability, reduce negative thinking patterns, and reinforce the use of healthy coping skills. Narrative Note: []
--- NOTE | 2024-04-15 10:25 | BH.SGPN.GN ---
Behaviors/Verbalizations/Mental Status: []Pt alert and oriented, casually dressed and groomed. Eye contact good. Motor activity appropriate. Speech within normal limits. Affect congruent, mood content, anxious. Thoughts linear, logical, no signs of hallucinations or delusions. Client Response/Progress/Benefit: [] Pt took notes and contributed some throughout group discussion and interactive activity. Attentive during psychoeducation on fixed mindset and how a fixed mindset can impact mental health, resilience, and relationships. Participated during the interactive group discussion on fixed mindset in which group verbalized their current fixed mindsets and how they affect their mental health. Pt shared common fixed mindset thoughts they have which included I?ll never have enough energy to get my house done?, ?I'll always be sad?, and ?I can't be loved?. These thoughts lead to giving up or not trying, low self-esteem, and remaining in unhealthy relationships. Pt benefited from increased awareness of growth mindset and fixed thoughts and how fixed thoughts impact their mental health. Will continue IOP tx to prevent decompensation, improve mood stability, and improve self-confidence. Narrative Note: []
--- NOTE | 2024-04-15 11:15 | BH.SGPN.GN ---
Behaviors/Verbalizations/Mental Status: []Pt alert and oriented, casually dressed and groomed. Eye contact good. Motor activity appropriate. Speech within normal limits. Affect congruent, mood content, anxious. Thoughts linear, logical, no signs of hallucinations or delusions. Client Response/Progress/Benefit: [] Pt was an active participant during activity and discussion. Pt did well to remain attentive and participate as group worked on identifying characteristics and benefits of adopting a growth mindset. Worked with fellow participants in reframing the example fixed thoughts into growth mindset thoughts. 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 Pt appeared to benefit from challenging own thoughts and engaging in the activity. Pt will continue IOP tx to improve distress tolerance, challenge negative thoughts, and prevent decompensation.
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
--- NOTE | 2024-04-18 10:10 | BH.SGPN.GN ---
Behaviors/Verbalizations/Mental Status: []Pt alert and oriented, causally dressed and groomed. Eye contact fair. Motor activity appropriate. Speech within normal limits. Affect congruent, mood euthymic. Thoughts linear, logical, no signs of hallucinations or delusions. Client Response/Progress/Benefit: [] Pt was actively engaged, providing input, and taking notes throughout session. Connected with the topic of pitfalls and listened to group discussion on internal and external barriers that prevent from choosing a healthier path to mental wellness. Group worked together to identify examples of personal internal pitfalls. Engaged in activity and worked cooperatively with peers. Shared personal pitfalls to include emotion dysregulation, poor boundaries, and avoidance of anxiety producing situations. Pt engaged in learning about the difference between external triggers and self-sabotaging behaviors. Seemed to benefit from increased awareness of personal pitfalls. Pt will continue IOP tx to challenge distorted thoughts, improve emotion regulation, and prevent decompensation.
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
--- NOTE | 2024-04-20 09:02 | BH.SGPN.GN ---
Behaviors/Verbalizations/Mental Status: [] Client alert and oriented, casual appearance. Eye contact fair. Motor activity appropriate. Speech within normal limits. Affect congruent, mood anxious. Thoughts linear, logical, no signs of hallucinations or delusions. Reviewed client's symptom tracker, no risk for suicidal ideation, plan, or intent. Client Response/Progress/Benefit: [] Client responded well to session AEB listening to others and sharing thoughts/feelings. Client reported mental health positive as taking time for self-care and getting her nails done. Client stated additional positive is knowing that her kids are safe since deciding to make some changes. Client reported stressor as ripping off the band-aid with her relationship. Appeared to benefit from support from peers. Will continue IOP tx to challenge negative/distorted thoughts, increase confidence, and prevent decompensation.
--- NOTE | 2024-04-20 10:10 | BH.SGPN.GN ---
Behaviors/Verbalizations/Mental Status: [] Eye contact is good. Motor activity is appropriate. Appearance is casual. Speech is Appropriate. Mood is dysthymic. Affect is congruent. Thoughts are linear and logical. No evidence of psychosis. Client Response/Progress/Benefit: [] Pt was an active participant during group discussions and group activities. This portion of group was very psychoeducation heavy and pt was attentive during psychoeducation. Engaged during activity in which they identified which type of foods (i.e. carbs, sugar, salt, fast food, caffeine, etc) they seek out when sad, tired, angry, stressed, anxious, etc. Pt was able to identify the impact that certain foods have on their mental health through group example which was beneficial. Reported connecting with the impacts salt has on depression and bipolar disorder. Benefited from increased awareness of the connection between nutrition and mental health. Will continue in IOP to prevent decompensation, stabilize mood, and increase healthy coping skills. Narrative Note: []
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
--- NOTE | 2024-04-22 09:00 | BH.SGPN.GN ---
Behaviors/Verbalizations/Mental Status: [] Client alert and oriented, casual appearance. Eye contact good. Motor activity appropriate. Speech within normal limits. Affect congruent, mood euthymic and anxious.. Thoughts linear, logical, no signs of hallucinations or delusions. Reviewed client's symptom tracker, no risk for suicidal ideation, plan, or intent. Client Response/Progress/Benefit: [] Client responded well to session AEB listening to others and sharing thoughts/feelings. Client reported mental positive is getting better sleep after returning home last week. Client reported additional mental health positive as completing the IOP program. Client stated current stressor is anxious about being done with IOP. Client stated she does plan to start GED classes soon and set a big boundary with her sister asking sister to move out and a month and a half. Client reports she thinks this will be beneficial for her because it will decrease the chaos in the home. Appeared to benefit from support from peers. Client will discharge from IOP today.
--- NOTE | 2024-04-22 11:10 | BH.SGPN.GN ---
Behaviors/Verbalizations/Mental Status: []Pt alert and oriented, neatly dressed and groomed. Eye contact good. Motor activity appropriate. Speech within normal limits. Affect congruent, mood euthymic. Thoughts linear, logical, no signs of hallucinations or delusions. Client Response/Progress/Benefit: [] Pt engaged participant AEB participating in the activity, providing input during small group discussion, and listening attentively to others. Pt appeared to connect with discussion in the benefits of addressing mental health stigma which included: improved relationships, increased willingness to seek help, increased happiness, and improved confidence. Group brainstormed strategies to combat social and perceived stigma. Pt identified that they can contribute to stigma by shutting down and not advocating for themselves.?Pt shared one thing pt can do to combat stigma is ?not putting myself in triggering and anxious situations.? Appeared to benefit from increasing awareness of strategies to combat stigma. Will discharge from IOP tx today as pt has accomplished her tx goals and no longer meets criteria for IOP level of care. Narrative Note: []
--- NOTE | 2024-04-22 13:50 | BH.MDN_ITS ---
Multi-Disciplinary Note Note 30-min Individual: Time Started:: 10:20 Date: 04/22/24 Purpose of session/treatment goals addressed:: Purpose of session was to review treatment progress, complete maintenance plan, and discuss aftercare plans. Eye Contact:: Good Motor Activity:: Appropriate Appearance:: Neat Speech:: Appropriate Mood:: Euthymic Affect:: Full Thoughts:: Linear, Logical and No evidence of hallucinations/delusions noted Staff Interventions:: CBT techniques, discharge planning, strengths perspective, reviewed DSM-5 and other (completed maintenance plan) Client Response:: Client reported feeling anxious about being done with IOP but is proud of herself for completing the program. Client stated at first she was not sure she would return after the session Thursday in which a CPS call had been made. However client stated she realized therapist was just doing their job and it is not their fault. Client stated she feels like she has made significant treatment progress since starting IOP with decreased anger outburst, improve daily functioning, challenging negative thoughts, starting to set more boundaries, and improved ability to manage stressors. Client stated she thinks in a way having to separate herself from her boyfriend due to everything going on with CPS report was likely helpful for her to rip the Band-Aid. Client reported she knew for a while this relationship has not been healthy for her and likely contributing to a lot of her mental health. Client stated she is hopeful that if she maintains her boundaries that it would help her stay stable and have the ability to maintain her progress. Client worked with therapist to identify warning signs, triggers, self-care activities, and healthy coping skills for her maintenance plan. Reviewed treatment progress with client per DSM-5 results. Client reported she will [facility] outpatient [facility] through the counseling center. Client stated feeling more ready to discharge from [facility] recognizes she has a skills and can do this. Risks/Concerns:: Denies suicide ideation, plan, or intention. Future oriented. Progress Toward Goals/Plan:: Per DSM-5 results at discharge her depressed symptoms have decreased by 57%, her anxiety decreased by 58% and her overall symptoms decreased by 37%. Client reports treatment progress with improved daily functioning, decreased anger outbursts, improved emotion regulation, improved boundary setting, and improved ability to manage her mental health symptoms. Plan is for client to continue seeing her outpatient counselor Zev through [facility]. Client will also continue to see her outpatient psychiatrist through the counseling center. Client sees her therapist Zev weekly. Plan is for client to discharge from [facility] today. Time Stopped:: 10:50
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
== END 2024-04-22 12:04 | disposition home or self-care (01) ==
LOC: BHIOP 07:14
PROVIDERS: PCP Family Medicine; Referring Provider Psychiatry & Neurology Psychiatry; Visit Provider Psychiatry & Neurology Psychiatry
DX: F31.81 Bipolar II disorder (principal); F41.0 Panic disorder [episodic paroxysmal anxiety]; F43.10 Post-traumatic stress disorder, unspecified; Z79.899 Other long term (current) drug therapy
CPT/HCPCS: 99213; H2012; H2020; S9480; 90832

== ENCOUNTER 2025-01-01 15:04 | Emergency (ER) | payer MEDICAID, SELFPAY ==
[2025-01-01 15:05] VITALS: BP 156/118; PULSE 73; RESP 20; TEMP 36.3; O2SAT 99; BMI 44.5
--- NOTE | 2025-01-01 15:16 | ED.RN ---
WOKE UP AT 0300 WITH ABD PAIN. SHE STATES SHE VOMITTED 2X TODAY. NOTHING MAKES IT BETTER.
[2025-01-01] MEDS: HYDROmorphone 1 MG/ML Syringe IV (15:30)
[2025-01-01] MEDS: Ondansetron 4 MG/2 ML Vial IV (15:31)
[2025-01-01] MEDS: 0.9% Normal Saline (1000mL) 1,000 ML 999 ML IV (15:31)
--- NOTE | 2025-01-01 15:45 | CT_ITS ---
PROCEDURE: ABDOMEN/PELVIS W IV CONT ONLY 01/01/2025 REASON FOR EXAM: ABD PAIN TECHNIQUE: Abdomen and pelvis CT with intravenous contrast. Coronal and Sagittal reconstruction series were provided. PATIENT PREPARATION: Per protocol ORAL CONTRAST TYPE: None. AMOUNT: mL CONTRAST: Isovue 370 VOLUME: 100 mL 6 gauge IV One or more dose reduction techniques were used (e.g., Automated exposure control, adjustment of the mA and/or kV according to patient size, use of iterative reconstruction technique. RADIATION DOSE SUMMARY: CTDlvol: 24 mGy DLP: 1356 mGycm COMPARISON: None FINDINGS: Lung bases: Unremarkable Liver: Normal size. No mass. Gallbladder: Unremarkable Spleen: Normal size. Pancreas: Normal size without evidence of mass surrounding inflammation or ductal dilation. Adrenals: Unremarkable Kidneys: Normal renal sizes. No hydronephrosis. Bladder: Unremarkable Reproductive Organs: The uterus is not clearly visualized, likely surgically absent. Please correlate clinically. Bowel: Evaluation of the bowel loops are limited due to lack of oral contrast. Stomach is unremarkable. No inflammatory changes of the small or large bowel. Appendix: Unremarkable Lymph nodes: No lymphadenopathy Vasculature: Unremarkable Peritoneum / Retroperitoneum: No free or free fluid Bones: Unremarkable CT/Abdomen/Pelvis W IV Cont ONLY IMPRESSION: No acute abnormality is demonstrated. Reading Location: [facility]
[2025-01-01 16:00] LABS: Absolute Lymphocyte Count 2.55 X10^3/uL (0.83-4.51); Absolute Neutrophil Count 7.1 X10^3/uL (2.0-7.7); Basophil# 0.05 X10^3/uL; Basophil% 0.5 % (0-1); Eosinophil# 0.11 X10^3/uL; Eosinophils% 1.1 % (0-5); Hematocrit 44.2 % (37-47); Hemoglobin 15.7 g/dL (12.0-15.0); Lymphocyte # 2.55 X10^3/ul (0.83-4.51); Lymphocyte % 24.4 % (19-41); Mean Corp Hgb Conc 35.5 g/dL (32-36); Mean Corpuscular Hgb 32.6 pg (27.0-32.0); Mean Corpuscular Volume 91.7 fL (81-99); Mean Platelet Vol. 9.2 fl (6.2-12.0); Monocyte# 0.64 X10^3/uL; Monocyte% 6.1 % (0-10); NRBC Flagged by Analyzer 0 % (0-5); Neutrophil # 7.06 X10^3/uL (2.7-7.7); Neutrophil % 67.4 % (47-70); Platelet Count 370 K/mm3 (150-450); RBC Distribution Width CV 12.4 % (11.6-14.6); RBC Distribution Width SD 41.8 fl (35.1-43.9); Red Blood Count 4.82 M/mm3 (4.2-5.4); White Blood Count 10.5 K/mm3 (4.4-11.0)
[2025-01-01] MEDS: Famotidine 200 MG/20 ML MDV 20 MG in 0.9% Normal Saline (Pres. free 8 ML 300 MG IV (16:00)
[2025-01-01 16:16] LABS: AST(SGOT) 97 U/L (<=31); Alanine Aminotransfer ALT/SGPT 69 U/L (<=34); Albumin, Serum 4.2 g/dL (3.5-5.0); Alkaline Phosphatase 94 U/L (35-104); Anion Gap 11 (5-15); BUN 7 mg/dL (4-19); BUN/Creat Ratio 9.1 RATIO (10-20); Bilirubin, Direct 0.41 mg/dL (0.00-0.30); Calcium,Total 9.3 mg/dL (7.6-11.0); Carbon Dioxide 25.6 mmol/L (21.0-32.0); Chloride 101 mmol/L (98-108); Creatinine, Serum 0.79 mg/dL (0.70-1.20); EST Glomerular Filtration Rate 105 (>60); Estimated Creatinine Clearance 128.99 ml/min (50-250); Globulin 2.9 g/dL (2.2-4.2); Glucose 102 mg/dL (70-99); Lipase 23 U/L (13-75); Potassium 3.8 mmol/L (3.3-5.1); Protein, Total 7.2 g/dL (5.9-8.4); Sodium Level 138 mmol/L (133-145); Total Bilirubin 0.76 mg/dL (0.00-1.30)
[2025-01-01 16:43] LABS: Mucous, Urine 0 SEEN /hpf (<or=2+); Red Blood Cells-Urine 0 SEEN /hpf (0-5)
[2025-01-01 16:46] LABS: Color, Urine Yellow (Yellow); Glucose, Dipstick Normal (Normal); Ketone-Dipstick Negative (Negative); Leukocyte Esterase-Dipstick Negative /ul (Negative); Nitrite-Dipstick Negative (Negative); Occult Blood-Urine Negative /ul (Negative); Protein-Dipstick 30 mg/dl (Negative); Urine Bilirubin Dipstick Negative (Negative); Urine Clarity Sl. Cloudy (Clear); Urine Urobilinogen Normal (Normal)
[2025-01-01 16:56] LABS: Bacteria 1+ /hpf (None Seen); Squamous Epithelial Cells - UA 0-5 SEEN /hpf (5-10); White Blood Cells 0-5 SEEN /hpf (0-5)
[2025-01-01 17:25] VITALS: BP 153/84; PULSE 71; RESP 14; O2SAT 96
--- NOTE | 2025-01-01 17:40 | EDS_ITS ---
HPI History of Present Illness Chief Complaint: Abd Pain Informant: patient Narrative Narrative: Patient is a 29-year-old female with past medical history of asthma and bipolar disorder. She states she went to bed normally last night and then awoke around 3:30 in the morning with midepigastric to right upper quadrant abdominal pain. She states she had 2 or 3 bouts of nausea and vomiting after the pain began. She states that the pain has been constant since its onset. She states despite trying aefs-fig-cnilbul medications there is been no symptom improvement. She denies any fevers chills or known sick contact. She states that since the pain is not resolved she has concern for potential underlying infection and therefore comes in for evaluation [facility] Medical History (Updated 01/01/25 @ 17:[address] Raman Denny, DO) History of posttraumatic stress disorder (PTSD) Bipolar 2 disorder Wears glasses Depression Back pain Migraine headache Smoker Intramural uterine fibroid Chronic pelvic pain in female Anxiety Panic disorder Anxiety with depression ALVARO III (cervical intraepithelial neoplasia grade III) with severe dysplasia Asthma Home Medications ?Medication ?Instructions ?Recorded ?Last Taken ?Type albuterol sulfate 90 mcg/actuation 1 - 2 puff inhalati on PRN PRN 07/04/21 Unknown History aerosol inhaler ASTHMA hydroxyzine pamoate 25 mg capsule 25 mg PO QHS 30 days #90 caps 02/29/24 Unknown Rx (Vistaril) trazodone 50 mg tablet 50 mg PO QHS 30 days #30 tab s 02/29/24 Unknown Rx hydrocodone-acetaminophen 5-325mg 1 tab PO Q8H PRN Alexander n 3 days #10 03/15/24 Unknown Rx 5mg-325mg TABLETS ibuprofen 600 mg tablet 600 mg PO Q6H PRN PRN pain # 20 03/15/24 Unknown Rx TABLETS lurasidone 40 mg tablet (Latuda) 40 mg PO QPM 30 days #30 tabs 03/30/24 Unknown Rx ondansetron 4 mg disintegrating 4 mg PO TID PRN nausea and 01/01/25 Unknown Rx tablet vomiting #21 tabs oxycodone-acetaminophen 5 mg-325 1 tab PO Q6H PRN pain 5 days #20 01/01/25 Unknown Rx mg tablet (Percocet) tabs Allergy/AdvReac Type Severity Reaction Status Date / Time Latex, Natural Rubber Allergy Rash Verified 01/01/25 15:07 Family History Aunt Diabetes Grandmother CVA (cerebral vascular accident) Cancer Hypertension Thyroid disorder Grandfather Diabetes CVA (cerebral vascular accident) Mother Hypertension Depression Bipolar 1 disorder Sister Hypertension Asthma Depression Bipolar 1 disorder Thyroid disorder Surgical History History of hysterectomy Hx of section History of tonsillectomy and adenoidectomy Status post colposcopy (~02/16/18) Social History Smoking Status: Current every day smoker tobacco type: cigarettes alcohol intake: never substance use type: does not use caffeine: No what type of physical activity do you participate in: none seatbelt use: sometimes do you feel safe at home: Yes additional social history: Single-Patient is unemployed ROS ROS ED Constitutional Constitutional ED: Denies chills or fever(s) Eyes Eyes: Denies blurry vision or change in vision ENT ENT ED: Denies sore throat Cardiovascular Cardiovascular: Denies chest pain Respiratory/Chest Respiratory/Chest: Denies cough or dyspnea Gastrointestinal Gastrointestinal: Reports abdominal pain, nausea and vomiting; Denies diarrhea Genitourinary Genitourinary ED: Denies dysuria, hematuria or urinary frequency Musculoskeletal Musculoskeletal: Denies back pain or myalgias Integumentary Denies rash Neurologic Neurologic: Denies headache(s) Hematologic/Lymphatic Hematologic/Lymphatic: Denies easy bleeding or easy bruising EXAM Physical Exam Const Vital Signs: 01/01/25 15:05 01/01/25 17:25 Temperature 97.3 F L Temperature Source Temporal Pulse Rate 73 71 Respiratory Rate 20 H 14 Blood Pressure 156/118 H 153/84 H Blood Pressure Mean 130 107 Pulse Ox 99 96 Oxygen Delivery Method Room Air Room Air Positive well nourished, well developed and obese General Appearance ED: well developed; Negative for pallor Nutritional Appearance: obese HEENT Reports moist mucous membranes HEENT Narrative: No tongue or lip swelling no oral lesions no airway edema or compromise No secondary findings in the posterior pharynx to suggest infection Eyes PERRL and EOMs intact bilaterally General Eye ED: Negative for scleral icterus Neck supple Neck Narrative: No nuchal rigidity or meningeal signs Resp normal respiratory effort and clear to auscultation bilaterally Cardio regular rate and regular rhythm Rate: other Other Details: Heart is regular rate and rhythm without murmurs rubs or gallops Radial and carotid pulses are equal and symmetric GI normal to inspection, nondistended, normoactive bowel sounds, non-tender, non- distended and no masses GI Narrative: Abdomen is soft and nontender and nondistended. Bowel sounds are normal active. No voluntary guarding or rigidity. No pulsatile mass or fluid wave. No increased tympany. Negative Lu's sign. Auscultation: normoactive bowel sounds Palpation: soft Back/Spine no CVA tenderness Extremity normal to inspection Neuro oriented x3, CN's II-XII intact bilaterally and no sensory deficits noted Sensorium / Orientation: alert Motor Exam: strength 5/5 throughout Psych mental status grossly normal Skin no rashes or lesions noted and no wounds General Skin Exam: Negative for jaundice or pallor MDM MDM MDM Narrative Medical decision making narrative: Patient arrived to the ER hypertensive but otherwise with stable vitals. With reported spontaneous onset of pain in the midepigastric to right upper quadrant region differential diagnosis is for biliary colic versus acute cholecystitis versus pancreatitis. Patient also could have an atypical presentation for kidney stone or UTI/pyelonephritis. Secondary to his basic labs with a CT scan were obtained. Labs revealed no clinically significant finding. Urine sample showed no sign of infection or blood going against kidney stone and/or UTI/pyelonephritis. CT scan revealed no signs of intestinal pathology such as gallstones gallbladder inflammation or pancreatitis. On reevaluation patient's had improvement of her pain and vitals with medication provide and her abdomen remains soft and nonsurgical. Therefore at this time there is no need for further evaluation and she is otherwise safe for discharge with outpatient follow up History & Record Review Discussion w/independent historian: Patient Lab Data Attestation: I reviewed the patient's lab results. Labs: Laboratory Results - last 24 hr 01/01/25 01/01/25 15:33 16:39 WBC 10.5 RBC 4.82 Hgb 15.7 H Hct 44.2 MCV 91.7 MCH 32.6 H MCHC 35.5 RDW Std Deviation 41.8 RDW Coeff of Shaggy 12.4 Plt Count 370 MPV 9.2 Immature Gran % (Auto) 0.500 Neut % (Auto) 67.4 Lymph % (Auto) 24.4 Taliaferro % (Auto) 6.1 Eos % (Auto) 1.1 Baso % (Auto) 0.5 Absolute Neuts (auto) 7.1 Absolute Lymphs (auto) 2.55 Nucleated RBC % 0 Sodium 138 Potassium 3.8 Chloride 101 Carbon Dioxide 25.6 Anion Gap 11 BUN 7 Creatinine 0.79 Estim Creat Clear Calc 128.99 Est GFR (MDRD) Non-Af 105 BUN/Creatinine Ratio 9.1 L Glucose 102 H Calcium 9.3 Total Bilirubin 0.76 Direct Bilirubin 0.41 H AST 97 H ALT 69 H Alkaline Phosphatase 94 Total Protein 7.2 Albumin 4.2 Globulin 2.9 Lipase 23 Urine Color Yellow Urine Clarity Sl. Cloudy Urine pH 8.0 Ur Specific [place] 1.010 Urine Protein 30 H Urine Glucose (UA) Normal Urine Ketones Negative Urine Occult Blood Negative Urine Nitrite Negative Urine Bilirubin Negative Urine Urobilinogen Normal Ur Leukocyte Esterase Negative Urine RBC 0 SEEN Urine WBC 0-5 SEEN Ur Squamous Epith Cells 0-5 SEEN Urine Bacteria 1+ Urine Mucus 0 SEEN Radiography Diagnostic Testing: Clinical Impression(s) from Imaging Studies Abdomen/Pelvis CT 01/01/25 15:45 IMPRESSION: No acute abnormality is demonstrated. Reading Location: [facility] Discharge Plan Triage Chief Complaint: Abd Pain ED Provider: Raman Denny Dx/Rx/DC Orders Clinical Impression: Nonspecific abdominal pain, Asthma, Bipolar 1 disorder Instructions: ED Abdominal Pain Gallstone Poss Prescriptions: New ondansetron 4 mg tablet,disintegrating 4 mg PO TID PRN (Reason: nausea and vomiting) Qty: 21 0RF oxycodone-acetaminophen [Percocet] 5-325 mg tablet 1 tab PO Q6H PRN (Reason: pain) 5 Days Qty: 20 0RF No Action albuterol sulfate 90 mcg/actuation HFA aerosol inhaler 1 - 2 puff INHALATION PRN PRN (Reason: ASTHMA) Patient Comments: inhale 2 puffs by mouth and INTO THE LUNGS every 4 hours if needed trazodone 50 mg tablet 50 mg PO QHS 30 Days Qty: 30 0RF hydroxyzine pamoate [Vistaril] 25 mg capsule 25 mg PO QHS 30 Days Qty: 90 0RF Rx Instructions: 1 po prn panic attack up to tid hydrocodone-acetaminophen 5-325 mg tablet 1 tab PO Q8H PRN (Reason: Pain) 3 Days Qty: 10 0RF ibuprofen 600 mg tablet 600 mg PO Q6H PRN PRN (Reason: pain) Qty: 20 0RF lurasidone [Latuda] 40 mg tablet 40 mg PO QPM 30 Days Qty: 30 1RF Rx Instructions: must administer with food (at least 350 calories) Other Ambulatory Orders: Gallbladder (Routine) Facility: [facility] - Location: [facility] Ordered By: Dr. Raman Denny Primary Care Provider: Vj Robles Referrals: Filippo Andrew MD [Med Staff - Active Staff] - (Right upper quadrant pain) Vj Robles MD [Primary Care Provider] - Activity Restrictions/Additional Instructions: Your history and exam indicate that your pain is most likely from a gallbladder spasm/biliary colic. Obtain your outpatient ultrasound for further evaluation of gallbladder. Even if this is normal you may need a HIDA scan for further diagnosis. Follow-up with general surgery for further evaluation as well and return to the ER should you have any further concerns or worsening of symptoms like treatment. Print Language: Vietnamese Disposition Disposition: Home, Self Care
[2025-01-01] MEDS: oxyCODONE 5 MG Tablet 10 MG PO (17:44)
[2025-01-01 17:52] VITALS: BP 133/75; PULSE 75; RESP 18; TEMP 36.6; O2SAT 99
== END 2025-01-01 17:53 | disposition home or self-care (01) ==
PROVIDERS: Emergency Provider Emergency Medicine; PCP Family Medicine; Visit Provider Emergency Medicine
DX: R10.11 Right upper quadrant pain (principal); F31.9 Bipolar disorder, unspecified; Z90.710 Acquired absence of both cervix and uterus; J45.909 Unspecified asthma, uncomplicated; R10.13 Epigastric pain; F41.9 Anxiety disorder, unspecified; F17.210 Nicotine dependence, cigarettes, uncomplicated; Z79.899 Other long term (current) drug therapy
CPT/HCPCS: 74177; 80048; 80076; 81001; 83690; 85025; 96365; 96375; 99282; Q9967; J2405

== ENCOUNTER → 2025-01-03 | Outpatient (CLI) | payer MEDICAID, SELFPAY ==
--- NOTE | 2025-01-03 10:32 | US_ITS ---
EXAM: US Abdomen Limited, Right Upper Quadrant CLINICAL INDICATION: RIGHT UPPER QUADRANT PAIN TECHNIQUE: Real-time ultrasound of the right upper quadrant with image documentation. COMPARISON: No relevant prior studies available. FINDINGS: LIVER: Fatty infiltration of the liver. Liver measures up to 15.3 cm. No intrahepatic bile duct dilation. GALLBLADDER: Gallbladder sludge. Negative Lu's sign was reported by the machine bender. No gallstones. COMMON BILE DUCT: Unremarkable as visualized. No stones. No dilation. Common bile duct measures 0.5 cm in diameter. PANCREAS: Unremarkable as visualized. RIGHT KIDNEY: Unremarkable. No stones. No hydronephrosis. The right kidney measures 10.6 x 6.0 x 4.9 cm. US/Abdomen Limited IMPRESSION: Fatty infiltration of the liver. Gallbladder sludge without convincing evidence of acute cholecystitis. Reading [facility]
== END | disposition home or self-care (01) ==
PROVIDERS: PCP Family Medicine; Referring Provider Emergency Medicine; Visit Provider Emergency Medicine
DX: R10.11 Right upper quadrant pain (principal)
CPT/HCPCS: 76705

== ENCOUNTER 2025-01-26 09:55 | Day surgery (SDC) | payer MEDICAID, SELFPAY ==
[2025-01-26] VITALS (11 sets, daily range): BP systolic 111–153; BP diastolic 62–119; PULSE 14–102; RESP 16–20; TEMP 36.3–37; O2SAT 92–100; BMI 44.1
[2025-01-26] MEDS: Lactated Ringers 1,000 ML 15 ML IV ×2 (10:30→13:32)
[2025-01-26] MEDS: INDOCYANINE GREEN 3.75 MG in Syringe 1.5 ML 999 MG IV (10:30)
--- NOTE | 2025-01-26 10:57 | PCM.PRE.AN2 ---
ASA Classification* ASA Classification ASA Classification: 3 (Morbid obesity ) Assessment & Plan Anesthesia* Anesthesia Assessment Anesthesia Assessment: Discussed sedation and/or anesthesia options, risks, benefits, and alternatives with patient/parents/legal guardian/POA. Questions invited. The patient/parents/legal guardian/POA seems to understand and agrees to proceed with anesthesia plan. Reviewed the physical assessment, medical history, allergy history and patient home medications list prior to surgery/procedure/anesthetic and documented any changes. Performed airway and anesthesia risk assessments. Anesthesia Type Anesthesia Type: General History Source History Obtained from:: Patient and Chart Anesthesia Focused Assessment* Temperature: 97.6 F Pulse Rate: 82 Blood Pressure: 134/81 Respiratory Rate: 16 Pulse Ox: 99 Oxygen Delivery Method: Room Air Airway Assessment Mouth opens: >3 cm Mallampati Score: II Teeth Condition: Intact Focused Labs Anesthesia Preop lab: CBC WBC 10.5 K/mm3 (4.4-11.0) 01/01/25 15:01/01/25 RBC 4.82 M/mm3 (4.2-5.4) 01/01/25 15:01/01/25 Hgb 15.7 g/dL (12.0-15.0) H 01/01/25 15:01/01/25 Hct 44.2 % (37-47) 01/01/25 15:01/01/25 Plt Count 370 K/mm3 (150-450) 01/01/25 15:33 01/01/25 CHEMISTRY Potassium 3.8 mmol/L (3.3-5.1) 01/01/25 15:01/01/25 Sodium 138 mmol/L (133-145) 01/01/25 15:33 01/01/25 Magnesium 2.0 mg/dL (1.6-2.6) 07/10/21 09:03 07/10/21 BUN 7 mg/dL (4-19) 01/01/25 15:01/01/25 Creatinine 0.79 mg/dL (0.70-1.20) 01/01/25 15:33 01/01/25 Glucose 102 mg/dL (70-99) H 01/01/25 15:33 01/01/25 POC Glucose 72 mg/dL (70-110) 07/11/21 06:15 10/28/21 COAG HCG, Quant < 1 mIU/mL (<9 non-preg) 10/21/13 13:26 10/21/13 Urine Test Negative Negative 07/11/21 06:39 07/11/21 Pre-Assessment Diagnosis/Proposed Procedure Planned Operative Procedure(s): Robotic Cholecystectomy Anesthesia History 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 When Was Last Pacemaker Check QUESTION #4 FULL TEXT: You/Your Family Experience fever (hyperthermia) with Anesthesia Last Oral Intake Last Oral intake: Last Oral Intake NPO since 04:30 01/26/25 10:33 Meds taken in AM with sips of Yes 01/26/25 10:33 water? 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 Female Yes 01/12/25 10:33 HX of Motion Sickness No 01/12/25 10:33 HX of N/V After Surgery No 01/12/25 10:33 Non-Smoker No 01/12/25 10:33 Duration of Surgery greater Yes 01/12/25 10:33 than 60 minutes Number of Risk Factors 2 01/12/25 10:33 PONV Score Moderate Risk 01/12/25 10:33 Height & Weight Height & Weight: Anesthesia: Height & Weight Height 5 ft 3 in 01/26/25 10:33 Weight: 113 kg 01/26/25 10:33 Body Mass Index (BMI) 44.1 01/26/25 10:33 Respiratory Assessment Respiratory Assessment - machine shop lead man: Respiratory Tract Infection Hx - machine shop lead man Hx Respiratory Tract Infection No 01/12/25 10:33 STOP Sleep Apnea STOP Sleep Apnea - machine shop lead man: STOP Sleep Apnea - machine shop lead man Hx Hypertension No 01/12/25 10:33 Hx Sleep Apnea No 01/12/25 10:33 CPAP BIPAP Do you snore loudly (louder No 01/12/25 10:33 than talking or can be heard Do you often feel tired/ No 01/12/25 10:33 fatigued/ sleepy during daytime? Has anyone observed you stop No 01/12/25 10:33 breathing during sleep? STOP Results Negative 01/12/25 10:33 QUESTION #5 FULL TEXT : Do you snore loudly (louder than talking or can be heard through closed doors)? 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 Specify any problems Hx of Preganancy in last 3 No 01/12/25 10:33 Months Nurse Filling Out Transfusion NGOZI 01/12/25 10:33 & Questions: Date: 01/12/25 01/12/25 10:33 Time: 10:35 01/12/25 10:33 Patient unable to answer at this time (ie. confused, unrespo /Reproduction History /Reproductive History - machine shop lead man: /Reproductive Hx- machine shop lead man Hx Now No 01/12/25 10:33 Gestational Age (in weeks): EDC: Hx Hx Para Hx Section SAB No 01/12/25 10:33 Active Medications Active Medications: Current Medications Generic Name Dose Route Start Last Admin Trade Name Freq PRN Reason Stop Dose Admin Cefotetan Disodium 2 gm/ 100 mls @ 200 mls/hr 01/26/25 11:15 Sodium Chloride IV 01/26/25 11:44 INTRAOP ONE Lactated Ringer's 1,000 mls @ 15 mls/hr 01/26/25 10:15 01/26/25 10:30 IV 15 mls/hr .Q48H YURI Administration PFSH Medical History Dietary restriction Gallbladder sludge Epigastric pain RUQ pain History of posttraumatic stress disorder (PTSD) Bipolar 2 disorder Wears glasses Depression Back pain Migraine headache Smoker Intramural uterine fibroid Chronic pelvic pain in female Anxiety Asthma Bipolar 1 disorder Panic disorder Anxiety with depression ALVARO III (cervical intraepithelial neoplasia grade III) with severe dysplasia Asthma Home Medications ?Medication ?Instructions ?Recorded ?Last Taken ?Type albuterol sulfate 90 mcg/actuation 1 - 2 puff inhalation PRN PRN 07/04/21 Unknown History aerosol inhaler ASTHMA ibuprofen 600 mg tablet 600 mg PO Q6H PRN PRN pain #20 03/15/24 Unknown Rx TABLETS ondansetron 4 mg disintegrating 4 mg PO TID PRN nausea and 01/01/25 Unknown Rx tablet vomiting #21 tabs oxycodone-acetaminophen 5 mg-325 1 tab PO Q6H PRN pain 5 days #20 01/01/25 Unknown Rx mg tablet (Percocet) tabs Allergy/AdvReac Type Severity Reaction Status Date / Time Latex, Natural Rubber Allergy Rash Verified 01/26/25 10:19 Family History Aunt Diabetes Grandmother CVA (cerebral vascular accident) Cancer Hypertension Thyroid disorder Grandfather Diabetes CVA (cerebral vascular accident) Mother Hypertension Depression Bipolar 1 disorder Sister Hypertension Asthma Depression Bipolar 1 disorder Thyroid disorder Father Cancer Surgical History History of hysterectomy Hx of section History of tonsillectomy and adenoidectomy Status post colposcopy (~02/16/18) Social History Smoking Status: Current every day smoker tobacco type: cigarettes alcohol intake: never substance use type: does not use caffeine: No what type of physical activity do you participate in: none seatbelt use: sometimes do you feel safe at home: Yes additional social history: Single-Patient is unemployed Addt'l Information Additional Findings: EKG NSR Review of Systems (Anesthesia) ROS Narrative System reviewed and no additional complaints, except as documented. Physical Exam Const alert and oriented x3 Nutritional Appearance: morbidly obese Resp normal respiratory effort and normal air movement Neuro oriented x3 and moves all extremities
--- NOTE | 2025-01-26 11:15 | GALL_PTH ---
PATIENT: DANIEL STOUT LOC: [facility] [place] U#:[id number] AGE/SX: 29/F ROOM: RE01/26/[address]: Dr. Filippo Andrew MD : 1995 BED: DIS: 01/26/2025 SPEC #: [id number] RECD: 01/26/25 13:32 STATUS: NADEGE DAMON #: [id number] DIANA: 01/26/25 11:[address]: Filippo Andrew DEPT: SURGICAL PATHOLOGY RECD BY: Rakan Combs ENTERED: 01/26/25 15:06 SP TYPE: RICCO THEODORE DR: Dr. Vj Robles MD Tissues: A - Gallbladder, NOS Procedures: Surgery Specimen Level III HEADER OPERATION: Robotic cholecystectomy PRE-OP DIAGNOSIS: Biliary sludge TISSUE SUBMITTED: A- Gallbladder MICROSCOPIC DIAGNOSIS A. Gallbladder, cholecystectomy: * Chronic cholecystitis, cholelithiasis, and cholesterolosis. MICROSCOPIC DESCRIPTION Slides are reviewed. GROSS DESCRIPTION A. Received in formalin in a container labeled with the patient's name, date of , and gallbladder is a 6.4 x 2.6 x 2.3 cm intact cholecystectomy specimen. A clamped cystic duct margin is identified measuring 0.3 cm in length by 0.2 cm in diameter (inked black). The serosa is within normal limits. Sectioning reveals an abundance of thin green bile with multiple yellow, bosselated, and friable stones each measuring approximately 0.4 x 0.3 x 0.3 cm. The mucosa is red-qiu with a moderate amount of matthew stippling. There is an average wall thickness of 0.3 cm. 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 [facility] 01-26-2025 CPT:76861
--- NOTE | 2025-01-26 11:36 | HP.PCM_ITS ---
History and Physical Date of Admission: 01/26/25 Intake Vital Signs 01/01/2515:05 01/09/2513:45 Height 5 ft 3 in 5 ft 3 in Weight: 251 lb 4 oz BMI 44.5 BP 143/93 H Blood Pressure Location Rt brachial Position Sitting Respiration 18 Pulse 93 Pulse Source Monitor Temp 97.7 F L Temp Source Temporal Pulse Oximetry (%) 99 Oxygen Delivery Method room air Intake Visit Reasons: ED F/U- ABD PAIN Chief Complaint: ED F/U 01/03 RUQ/Epigastric pain Equipment Operator/Laborer/Supervisor Required: No Accompanied by: Sister Is patient in pain?: No Allergies Latex, Natural Rubber Allergy (Verified 01/09/25 13:46) Rash Medications ?Medication ?Instructions ?Recorded ?Confirmed ?Type albuterol sulfate 90 mcg/actuation 1 - 2 puff inhalation PRN PRN 07/04/21 01/09/25 History aerosol inhaler ASTHMA ibuprofen 600 mg tablet 600 mg PO Q6H PRN PRN pain #20 03/15/24 01/09/25 Rx TABLETS ondansetron 4 mg disintegrating 4 mg PO TID PRN nausea and 01/01/2512/14 Rx tablet vomiting #21 tabs oxycodone-acetaminophen 5 mg-325 1 tab PO Q6H PRN pain 5 days #20 5 01/09/25 Rx mg tablet (Percocet) tabs PFSH Medical History (Updated 01/09/25 @ 13:54 by Amanda Mccarty) Gallbladder sludge Epigastric pain RUQ pain Bipolar 1 disorder Asthma History of posttraumatic stress disorder (PTSD) Bipolar 2 disorder Wears glasses Depression Back pain Migraine headache Smoker Intramural uterine fibroid Chronic pelvic pain in female Anxiety Panic disorder Anxiety with depression ALVARO III (cervical intraepithelial neoplasia grade III) with severe dysplasia Asthma Surgical History History of hysterectomy Hx of section History of tonsillectomy and adenoidectomy Status post colposcopy (~02/16/18) Family History Aunt DiabetesGrandmother CVA (cerebral vascular accident) Cancer Hypertension Thyroid disorderGrandfather Diabetes CVA (cerebral vascular accident)Mother Hypertension Depression Bipolar 1 disorderSister Hypertension Asthma Depression Bipolar 1 disorder Thyroid disorderFather Cancer Social History (Updated 01/09/25 @ 13:56 by Faby Frank) Smoking Status: Current every day smoker tobacco type: cigarettes alcohol intake: never substance use type: does not use caffeine: No what type of physical activity do you participate in: none seatbelt use: sometimes do you feel safe at home: Yes additional social history: Single-Patient is unemployed HPI HPI HPI: Patient is a 29-year-old female who was referred from the ER. She says that about 2 weeks ago she had excruciating right upper quadrant pain and nausea and vomiting that sent her to the hospital. They did a CT scan which was normal and they did an ultrasound which showed sludge in the gallbladder with no thickening or stones. The patient reports that this pain has been coming back about every other day since then but not as severe. She said that this past weekend she had a fever of 102 and nausea. She describes the pain as under her right ribs with no radiation. She says that usually these episodes last 6 to 7 hours. ROS General General: Yes fatigue; No weight change, appetite, colon cancer, breast cancer or weakness HEENT HEENT: No difficulty swallowing, eye injury, eye surgery, swollen glands or hoarseness Endo Endocrine: No thyroid disease, diabetes mellitus, thyroid cancer, Hair loss, heat intolerance or cold intolerance Skin Skin: No rash or changing moles Breast Breast: No left breast lump, right breast lump, nipple discharge, breast pain, abnormal mammogram, abnormal US or breast enlargement Musc Musculoskeletal: Yes gout; No back problems, arthritis, rheumatoid arthritis or joint pain Cardio Cardiovascular: No murmur, pacemaker, heart disease, atrial fibrillation, high blood pressure, heart attack, heart stent, palpitations, shortness of breath with exertion or chest pain Psych Psychiatric: Yes depression and anxiety; No hearing voices Resp Respiratory: No shortness of breath, No sleep apnea, No cough, No COPD, Yes asthma, No emphysema and No wheezing Gastro Gastrointestinal: Yes abdominal pain, Yes nausea or vomiting, No diarrhea, No constipation, No blood in stool, No acid reflux, No hemorrhoids, No ulcers, No gallbladder problem and No black,tarry stools Marlon Hematologic: No blood thinners, No blood disorders, No bleeding, No anemia and No blood clots Neuro Neurologic: No system reviewed and no additional complaints, except as documented, No as per HPI, No abnormal gait, No abnormal hearing, No abnormal movements, No abnormal speech, No behavioral changes, No burning sensations, No confusion, No convulsions, No disequilibrium, No dizziness, No localized weakness, No frequent falls, No headache(s), No lack of coordination, No loss of vision, No memory loss, No numbness, No other visual disturbances, No radicular pain, No restless legs, No sensory deficit, No syncope, No tingling, No tremor(s), No weakness and No other Exam Const General: cooperative Orientation: alert and oriented x3 HENMT Head: normal to inspection Neck Neck: normal visual inspection and full ROM Chest Chest palpation & inspection: normal inspection of the chest Resp Effort & Inspection: normal respiratory effort Auscultation: clear to auscultation bilaterally Cardio Rate: regular rate Rhythm: regular rhythm GI Inspection: non-distended Palpation: soft and nontender Skin General: no rashes or lesions noted Neuro General: patient alert and patient oriented x3 Extrem General: full ROM Psych Appearance: grossly normal Mental Status: mental status grossly normal Assessment and Plan Assessment and Plan (1) Gallbladder sludge: Status: Acute Plan: The patient is having right upper quadrant pain and her only abnormality noted on ultrasound or CT scan was sludge in the gallbladder. It is possible that the sludge is causing her symptoms are there are small stones that were unable to be identified. I also discussed with her that this might not help the pain as it could be something else besides the gallbladder and the sludge is not the problem. The patient understands and would still like to have her gallbladder out. I discussed robotic assisted laparoscopic cholecystectomy in detail with her. I discussed the risks including but not limited to bleeding, infection, injury to surrounding organs such as the liver, bile ducts, bowel. Patient understands the risks and is willing to proceed. Filippo Andrew MD Pager: [facility] [address] [place] [address], [address] [place] [address] Office: I have examined the patient and the H&P has been reviewed. There are no clinical changes since date of exam.
[2025-01-26] MEDS: Cefotetan 2 GM in 0.9% Normal Saline (100mL MB+) 100 ML IV (11:54)
--- NOTE | 2025-01-26 12:34 | EKG12_ITS ---
Test Reason : PRE OP Blood Pressure : */* mmHG Vent. Rate : 66 BPM Atrial Rate : 66 BPM P-R Int : 146 ms QRS Dur : 78 ms QT Int : 370 ms P-R-T Axes : 22 36 26 degrees QTcB Int : 387 ms Normal sinus rhythm with sinus arrhythmia Normal ECG No previous ECGs available Confirmed by DEJUAN HERMAN, LEXUS ([id number]), editorial project manager JAYY JALLOH ([id number]) on 01/30/2025 11:46:53 AM Referred By: Filippo Andrew Confirmed By: LEXUS ZAIDI MD
[2025-01-26] MEDS: Bupivacaine Mpf 0.5% 30 ML VIAL (12:40)
--- NOTE | 2025-01-26 12:49 | PCM.OPRPT ---
Operative Report (Standard) Operative Information Date of Procedure: 01/26/25 Pre-Operative Diagnosis: Biliary sludge Post-Operative Diagnosis: Biliary sludge Surgery/Procedure Performed: Robotic assisted laparoscopic cholecystectomy community service officer coordinator: Yes Pharmacist Helper: Kishan Lopez Tasks completed by telecom assistant: Opening and Closing Type of Anesthesia: General/Regional RN Documented Start/Stop Times: Operation Date: 01/26/25 11:15 Case Time Into Pre-Op 01/26/25 10:16 Out of Pre-Op 01/26/25 11:49 Anesthesia Start 01/26/25 11:54 Into Room 01/26/25 11:54 Procedure Start 01/26/25 12:09 Procedure Start Time: 12:09 Procedure Stop Time: 12:55 Select all DRAINS/GRAFTS/IMPLANTS that apply: None Estimated Blood Loss: 5 Specimen collected: Yes Description of specimen(s) removed: Gallbladder Description of surgery: Patient was brought to the operating room and general anesthesia was induced. The abdomen was prepped and draped in usual sterile fashion. A midline incision was made superior to the umbilicus and deepened to the fascia. The fascia was grasped and elevated and a Veress needle was placed into the abdomen. The abdomen was insufflated to 15 mmHg and the Veress needle was removed. A port was placed through the incision. The abdomen was inspected for injuries from entry and there were none. Under direct visualization to ports were placed in the left upper quadrant and 1 port in the right upper quadrant then the robot was docked. The gallbladder was grasped and elevated to the right upper quadrant and the infundibulum was located and retracted laterally. The peritoneum was dissected free and dissection revealed the cystic duct and cystic artery. These both appeared normal in anatomy. They were both triply clipped and then divided. The gallbladder was then taken off the gallbladder fossa using electrocautery. There was good hemostasis with no spillage of bile or bleeding. The gallbladder was placed into a bag and then removed. The midline fascia was closed with a Luis Daniel Stinson needle using an 0 Vicryl suture. All of the skin incisions were injected with local anesthetic and closed with interrupted 4-0 Monocryl sutures and Steri-Strips and bandages were applied. Patient was awoken and brought to PACU in stable condition and tolerated the procedure well. Surgical Findings: None Complications Complications: No Admit VTE Documentation VTE Mechan Device Prophylaxis: SCD's
--- NOTE | 2025-01-26 12:52 | DCINST_ITS ---
Discharge Instructions Procedure Gallbladder Diet Discharge Diet: Light diet - advance as tolerated Activity Discharge Activity: May Not Drive (for 2-3 days or while taking narcotic pain medications.) and - (Do not drive, work heavy equipment or sign legal documents for 24 hours.) May shower in (days): 1 Lifting Restrictions: 20 lbs for 2 weeks Additional Activity Instructions:: Pain medication may cause nausea. You should typically eat light foods as you take your pain medications. Pain medication may also cause constipation. If this is a problem for you, please discuss with your doctor. Alternate Tylenol and ibuprofen for pain control, oxycodone for breakthrough pain. Dressing / Incision Call your doctor if your incision/area has: Continuous Slow Oozing, Sudden Increased Bleeding, Increased Pain/ Swelling, Increased Redness and Foul Smelling Discharge Call your doctor if you observe: Fever of 101 or Higher Suture Line Care: Avoid Pulling/Pushing and Avoid Pinching/Bending Remove Dressing in: 2 days Additional Dressing/Incision Instructions:: Leave operative bandaids on for 2 days. When you remove dressing, leave Steri-Strips on until your follow-up appointment, or until the Steri-Strips fall off on their own. Follow Up Care Please Follow Up With: Filippo Andrew MD When: Please call to schedule 2 week follow up appointment. [phone] Test Results: Test results from this visit will be discussed in further detail at your follow- up appointment, if applicable. Discharge Plan Admission Attending Provider: Filippo Andrew Primary Care Provider: Vj Robles Instructions Print Language: Wolof Discharge Orders/Prescriptions Prescriptions: New oxycodone 5 mg Tablet 5 - 10 mg PO Q4H PRN PRN (Reason: Pain Score 4-10) 5 Days Qty: 20 0RF No Action albuterol sulfate 90 mcg/actuation HFA aerosol inhaler 1 - 2 puff INHALATION PRN PRN (Reason: ASTHMA) Patient Comments: inhale 2 puffs by mouth and INTO THE LUNGS every 4 hours if needed ibuprofen 600 mg tablet 600 mg PO Q6H PRN PRN (Reason: pain) Qty: 20 0RF ondansetron 4 mg tablet,disintegrating 4 mg PO TID PRN (Reason: nausea and vomiting) Qty: 21 0RF oxycodone-acetaminophen [Percocet] 5-325 mg tablet 1 tab PO Q6H PRN (Reason: pain) 5 Days Qty: 20 0RF Referrals / Follow Up: Vj Robles MD [Primary Care Provider] - Disposition Disposition (needs filled in before D/C Order can be placed): Home, Self Care
--- NOTE | 2025-01-26 13:09 | PCM.POST.ANE ---
Anesthesia: Postop Eval I Current Vital Signs Temperature: 97.3 F Pulse Rate: 14 Blood Pressure: 153/95 Respiratory Rate: 16 Pulse Ox: 97 Oxygen Delivery Method: Room Air Assessment Airway patent: Yes Spontaneous unlabored respirations: Yes Mental status: Awake nausea: No Vomiting: No Anesthesia Complication: No Fluid Hydration Crystalloid volume administer (ml): 900 Total IV fluid infused: 900 Progress Note Anesthesia document: Postop Eval 1 completed: Yes
[2025-01-26] MEDS: Albuterol 2.5 MG/3 ML VIAL.NEB. INHALATION (13:20)
[2025-01-26] MEDS: oxyCODONE 5 MG Tablet PO (14:36)
--- NOTE | 2025-01-26 14:37 | POSTOPAN2_ITS ---
Anesthesia Postop Eval I Sum Postop Eval Completion status Anesthesia document: Postop Eval 1 completed: Yes Anesthesia Postop Eval I Summary Anesthesia Postop Eval I Summary: Anesthesia Postop Eval I: Assessment Summary Airway patent Yes 01/26/25 13:10 ELECTRONIC SECURITY SPECIALIST.[email or web address] Spontaneous unlabored Yes 01/26/25 13:10 ELECTRONIC SECURITY SPECIALIST.GDOTT respirations Mental status Awake 01/26/25 13:10 ELECTRONIC SECURITY SPECIALIST.GDOTT nausea No 01/26/25 13:10 ELECTRONIC SECURITY SPECIALIST.GDOTT Vomiting No 01/26/25 13:10 ELECTRONIC SECURITY SPECIALIST.GDOTT Anesthesia Postop Eval I: Fluid Summary Crystalloid volume administer 900 01/26/25 13:10 ELECTRONIC SECURITY SPECIALIST.GDOTT (ml) Colloids volume administered ( ml) Blood Product volume administered (ml) Total IV fluid infused 900 01/26/25 13:10 ELECTRONIC SECURITY SPECIALIST.GDOTT Anesthesia Postop Eval I: Summary Notes Anesthesia Complication No 01/26/25 13:10 ELECTRONIC SECURITY SPECIALIST.GDOTT Anesthesia Complication Comment: Post-operative progress note Anesthesia: Postop Eval II Evaluation Mental status: Awake and Apprehensive Pain Level: 4 nausea: No Vomiting: No Complications Anesthesia Complication: No
--- NOTE | 2025-01-26 14:37 | PCM.POSTANE2 ---
Anesthesia Postop Eval I Sum Postop Eval Completion status Anesthesia document: Postop Eval 1 completed: Yes Anesthesia Postop Eval I Summary Anesthesia Postop Eval I Summary: Anesthesia Postop Eval I: Assessment Summary Airway patent Yes 01/26/25 13:10 [email or web address] Spontaneous unlabored Yes 01/26/25 13:10 [email or web address] respirations Mental status Awake 01/26/25 13:10 [email or web address] nausea No 01/26/25 13:10 [email or web address] Vomiting No 01/26/25 13:10 [email or web address] Anesthesia Postop Eval I: Fluid Summary Crystalloid volume administer 900 01/26/25 13:10 [email or web address] (ml) Colloids volume administered ( ml) Blood Product volume administered (ml) Total IV fluid infused 900 01/26/25 13:10 [email or web address] Anesthesia Postop Eval I: Summary Notes Anesthesia Complication No 01/26/25 13:10 [email or web address] Anesthesia Complication Comment: Post-operative progress note Anesthesia: Postop Eval II Evaluation Mental status: Awake and Apprehensive Pain Level: 4 nausea: No Vomiting: No Complications Anesthesia Complication: No
== END 2025-01-26 15:00 | disposition home or self-care (01) ==
LOC: SDC 09:56 → AC 09:56
PROVIDERS: PCP Family Medicine; Referring Provider Surgery; Visit Provider Surgery
PROC: 0FT44ZZ Resection of Gallbladder, Percutaneous Endoscopic Approach (ICD-10-PCS; CPT 47562; principal; 2025-01-26 10:55)
DX: K80.10 Calculus of gallbladder with chronic cholecystitis without obstruction (principal); F31.9 Bipolar disorder, unspecified; K83.8 Other specified diseases of biliary tract; J45.909 Unspecified asthma, uncomplicated; F17.210 Nicotine dependence, cigarettes, uncomplicated
CPT/HCPCS: 47562; S2900; 00790; 88304; 93005; 94640; J2405